=== PATIENT | female | born 1930 | race Caucasian/White ===

== ENCOUNTER 2018-07-13 11:53 | Observation (INO) | payer MEDICARE, BC ==
--- NOTE | 2018-07-13 13:01 | ED ---
General Adult HPI - General Chief complaint: Chest Pain Stated complaint: chest wall pain Time Seen by Provider: 07/13/18 12:17 Source: patient, RN notes reviewed, old records reviewed Mode of arrival: ambulatory Limitations: no limitations - History of Present Illness Initial comments: 87-year-old female presented for evaluation of chest pain. Pain is been present for the past several weeks. Patient was seen by her primary care physician thought to have chest wall strain. She has no known history of coronary artery disease. Today she developed central chest pressure. This was not with specific movement. She denies dyspnea. Denies vomiting. Denies diaphoresis. She is a diabetic. Denies abdominal pain. Denies lower extremity pain or sw elling. - Related Data Home Medications Medication Instructions Recorded Confirmed ALPRAZolam [Xanax] 0.25 mg PO DAILY 07/13/18 07/13/18 Allopurinol [Zyloprim] 300 mg PO DAILY 07/13/18 07/13/18 Aspirin EC [Ecotrin] 325 mg PO DAILY 07/13/18 07/13/18 Insulin Lispro Protamin/Lispro 35 unit SQ AC-SUPPER 07/13/18 07/13/18 [humaLOG Mix 75-25 Kwikpen] Insulin Lispro Protamin/Lispro 48 unit SQ AC-BRKFST 07/13/18 07/13/18 [humaLOG Mix 75-25 Kwikpen] Lisinopril [Zestril] 20 mg PO DAILY 07/13/18 07/13/18 Simvastatin [Zocor] 40 mg PO HS 07/13/18 07/13/18 amLODIPine [Norvasc] 5 mg PO DAILY 07/13/18 07/13/18 metFORMIN HCL [Glucophage Xr] 1,000 mg PO HS 07/13/18 07/13/18 Allergies Allergy/AdvReac Type Severity Reaction Status Date / Time sulfamethoxazole AdvReac Unknown Verified 07/13/18 13:12 [From Bactrim] trimethoprim [From Bactrim] AdvReac Unknown Verified 07/13/18 13:12 Review of Systems ROS Statement: Those systems with pertinent positive or pertinent negative responses have been documented in the HPI. ROS Other: All systems not noted in ROS Statement are negative. Past Medical History Past Medical History: Cancer, Diabetes Mellitus, Hyperlipidemia, Hypertension Additional Past Medical History / Comment(s): Breast cancer, skin cancer History of Any Multi-Drug Resistant Organisms: None Reported Past Surgical History: Appendectomy, Hysterectomy Additional Past Surgical History / Comment(s): bilateral mastectomy Past Psychological History: Anxiety Smoking Status: Never smoker Past Alcohol Use History: None Reported Past Drug Use History: None Reported General Exam Limitations: no limitations General appearance: alert, in no apparent distress Head exam: Present: atraumatic, normocephalic Eye exam: Present: normal appearance, PERRL ENT exam: Present: normal exam Neck exam: Present: normal inspection. Absent: tenderness, meningismus Respiratory exam: Present: normal lung sounds bilaterally. Absent: respiratory distress, wheezes Cardiovascular Exam: Present: regular rate, normal rhythm GI/Abdominal exam: Present: soft, distended Extremities exam: Present: normal inspection, normal capillary refill. Absent: pedal edema Neurological exam: Present: alert, oriented X3, CN II-XII intact. Absent: motor sensory deficit Psychiatric exam: Present: normal affect, normal mood Skin exam: Present: warm, dry, intact. Absent: cyanosis, diaphoretic Course Vital Signs 07/13/18 07/13/18 12:15 14:27 Temperature 98.0 F Pulse Rate 85 73 Respiratory 18 16 Rate Blood Pressure 181/74 122/62 O2 Sat by Pulse 97 97 Oximetry EKG Findings - EKG Comments: EKG Findings:: EKG: Normal sinus rhythm rate 79, AL interval 186, QRS duration 68, QTC [address] segment elevation, she is T-wave inversion in aVL. Medical Decision Making - Medical Decision Making 87-year-old female presenting with intermittent chest pain, central chest, worse this morning with some chest tightness. Patient has no history of coronary artery disease, she is a diabetic. She has an EKG which is normal sinus ST segment elevation, T-wave inversion in aVL. Workup includes chest x-ray which is negative for any acute cardiopulmonary disease, normal CBC, normal CMP initial troponin negative. Patient will be kept in observation for serial cardiac enzymes, telemetry, and cardiology consultation. Case is discussed with the admitting physician Dr. Tompkins - Lab Data Result diagrams: 07/13/18 13:10 07/13/18 13:10 Lab Results 07/13/18 07/13/18 07/13/18 Range/Units 13:10 13:10 13:10 WBC 6.9 (3.8-10.6) k/uL RBC 3.88 (3.80-5.40) m/uL Hgb 11.8 (11.4-16.0) gm/dL Hct 36.7 (34.0-46.0) % MCV 94.5 (80.0-100.0) fL MCH 30.4 (25.0-35.0) pg MCHC 32.2 (31.0-37.0) g/dL RDW 15.1 (11.5-15.5) % Plt Count 155 (150-450) k/uL Neutrophils % 60 % Lymphocytes % 31 % Monocytes % 5 % Eosinophils % 1 % Basophils % 0 % Neutrophils # 4.1 (1.3-7.7) k/uL Lymphocytes # 2.2 (1.0-4.8) k/uL Monocytes # 0.3 (0-1.0) k/uL Eosinophils # 0.1 (0-0.7) k/uL Basophils # 0.0 (0-0.2) k/uL PT 10.3 (9.0-12.0) sec INR 1.0 (<1.2) APTT 22.6 (22.0-30.0) sec Sodium 138 (137-145) mmol/L Potassium 4.9 (3.5-5.1) mmol/L Chloride 105 (98-107) mmol/L Carbon Dioxide 24 (22-30) mmol/L Anion Gap 9 mmol/L BUN 19 H (7-17) mg/dL Creatinine 0.76 (0.52-1.04) mg/dL Est GFR (CKD-EPI)AfAm 83 (>60 ml/min/1.73 sqM) Est GFR (CKD-EPI)NonAf 72 (>60 ml/min/1.73 sqM) Glucose 127 H (74-99) mg/dL Calcium 10.2 (8.4-10.2) mg/dL Magnesium 1.5 L (1.6-2.3) mg/dL Total Bilirubin 0.4 (0.2-1.3) mg/dL AST 27 (14-36) U/L ALT 31 (9-52) U/L Alkaline Phosphatase 57 (38-126) U/L Troponin I (0.000-0.034) ng/mL Total Protein 7.6 (6.3-8.2) g/dL Albumin 4.7 (3.5-5.0) g/dL Lipase 82 (23-300) U/L 07/13/18 Range/Units 13:10 WBC (3.8-10.6) k/uL RBC (3.80-5.40) m/uL Hgb (11.4-16.0) gm/dL Hct (34.0-46.0) % MCV (80.0-100.0) fL MCH (25.0-35.0) pg MCHC (31.0-37.0) g/dL RDW (11.5-15.5) % Plt Count (150-450) k/uL Neutrophils % % Lymphocytes % % Monocytes % % Eosinophils % % Basophils % % Neutrophils # (1.3-7.7) k/uL Lymphocytes # (1.0-4.8) k/uL Monocytes # (0-1.0) k/uL Eosinophils # (0-0.7) k/uL Basophils # (0-0.2) k/uL PT (9.0-12.0) sec INR (<1.2) APTT (22.0-30.0) sec Sodium (137-145) mmol/L Potassium (3.5-5.1) mmol/L Chloride (98-107) mmol/L Carbon Dioxide (22-30) mmol/L Anion Gap mmol/L BUN (7-17) mg/dL Creatinine (0.52-1.04) mg/dL Est GFR (CKD-EPI)AfAm (>60 ml/min/1.73 sqM) Est GFR (CKD-EPI)NonAf (>60 ml/min/1.73 sqM) Glucose (74-99) mg/dL Calcium (8.4-10.2) mg/dL Magnesium (1.6-2.3) mg/dL Total Bilirubin (0.2-1.3) mg/dL AST (14-36) U/L ALT (9-52) U/L Alkaline Phosphatase (38-126) U/L Troponin I <0.012 (0.000-0.034) ng/mL Total Protein (6.3-8.2) g/dL Albumin (3.5-5.0) g/dL Lipase (23-300) U/L Disposition Clinical Impression: Chest pain Disposition: ADMITTED IP TO THIS HOSP Condition: Stable Is patient prescribed a controlled substance at d/c from ED?: No Referrals: Oren Pham DO [Primary Care Provider] - 1-2 days Decision to Admit Reason: Admit from EC Decision Date: 07/13/18 Decision Time: 15:38
--- NOTE | 2018-07-13 13:28 | XR ---
EXAMINATION TYPE: XR chest 2V DATE OF EXAM: 07/13/2018 COMPARISON: NONE HISTORY: Chest pain and shortness of breath TECHNIQUE: Frontal and lateral views of the chest are obtained. FINDINGS: There is chronic parenchymal change without suspicious focal air space opacity, pleural ef fusion, or pneumothorax seen. The cardiac silhouette size is within normal limits with atherosclerot ic change in the aortic knob. Dextroconvex scoliosis centered in the lower thoracic spine is present. IMPRESSION: Chronic parenchymal changes without acute pulmonary process.
[2018-07-13 13:31] LABS: Basophils % (A) 0 %; Eosinophils # (A) 0.1 k/uL (0-0.7); Eosinophils % (A) 1 %; HCT 36.7 % (34.0-46.0); HGB 11.8 gm/dL (11.4-16.0); Lymphocytes # (A) 2.2 k/uL (1.0-4.8); Lymphocytes % (A) 31 %; MCH 30.4 pg (25.0-35.0); MCHC 32.2 g/dL (31.0-37.0); MCV 94.5 fL (80.0-100.0); Monocytes # (A) 0.3 k/uL (0-1.0); Monocytes % (A) 5 %; Neutrophils # (A) 4.1 k/uL (1.3-7.7); Neutrophils % (A) 60 %; Platelet Count 155 k/uL (150-450); RBC 3.88 m/uL (3.80-5.40); RDW 15.1 % (11.5-15.5); WBC 6.9 k/uL (3.8-10.6)
[2018-07-13 13:36] LABS: Albumin 4.7 g/dL (3.5-5.0); Calcium 10.2 mg/dL (8.4-10.2); Magnesium 1.5 mg/dL (1.6-2.3); Potassium 4.9 mmol/L (3.5-5.1); Total Bilirubin 0.4 mg/dL (0.2-1.3); Total Protein 7.6 g/dL (6.3-8.2)
[2018-07-13 13:40] LABS: Partial Thromboplastin Time 22.6 sec (22.0-30.0); Prothrombin Time 10.3 sec (9.0-12.0)
[2018-07-13] MEDS ORDERED: MAGNESIUM SULFATE-D5W PMX 1 GM in DEXTROSE/WATER 1 100ML.BAG IVPB ONE (14:11)
[2018-07-13] MEDS ORDERED: SODIUM CHLORIDE 0.9% 500 ML 500 ML IV ONE (14:11)
[2018-07-13] MEDS ORDERED: ASPIRIN 325 MG TAB PO STA (14:55)
[2018-07-13] MEDS ORDERED: MORPHINE SULFATE 4 MG/ML SYRINGE IV PRN (15:38)
[2018-07-13] MEDS ORDERED: NALOXONE 0.4 MG/ML 1 ML VIAL IV PRN (15:38)
[2018-07-13] MEDS ORDERED: ONDANSETRON 4 MG/2 ML VIAL IVP PRN (15:38)
[2018-07-13] MEDS ORDERED: NITROGLYCERIN SL TABS 0.4 MG TAB SUBLINGUAL PRN (15:39)
--- NOTE | 2018-07-13 16:51 | P.HPIM ---
History of Present Illness H&P Date: 07/13/18 Chief Complaint: Chest pain Patient is a 87-year-old female with history of diabetes type 2 who states over the last few weeks she has had substernal chest pain with some association with movement denies any shortness of breath nausea or vomiting. Patient states she knows the symptoms of a heart attack especially as it relates to women however she became concerned because her chest pain today became more central in origin denies any radiation. Patient was recently seen by a advanced practitioner in her family physician's office for diarrhea and chest pain and at that time her chest pain was attributed to muscle strain related to lifting her dog. Patient states she woke this morning tearful and crying because of a dream that was emotional she then developed the chest pain so she came to the emergency room for evaluation. In the emergency room her initial workup was negative however because of risk factors and need for further stratification patient is placed in observation for further workup and management. Review of Systems Complete review of systems is negative other than stated above Past Medical History Past Medical History: Cancer, Diabetes Mellitus, Hyperlipidemia, Hypertension Additional Past Medical History / Comment(s): Breast cancer, skin cancer History of Any Multi-Drug Resistant Organisms: None Reported Past Surgical History: Appendectomy, Hysterectomy Additional Past Surgical History / Comment(s): bilateral mastectomy Past Psychological History: Anxiety Smoking Status: Never smoker Past Alcohol Use History: None Reported Past Drug Use History: None Reported Medications and Allergies Home Medications Medication Instructions Recorded Confirmed Type ALPRAZolam [Xanax] 0.25 mg PO DAILY 07/13/18 07/13/18 History Allopurinol [Zyloprim] 300 mg PO DAILY 07/13/18 07/13/18 History Aspirin EC [Ecotrin] 325 mg PO DAILY 07/13/18 07/13/18 History Insulin Lispro Protamin/Lispro 35 unit SQ AC-SUPPER 07/13/18 07/13/18 History [humaLOG Mix 75-25 Kwikpen] Insulin Lispro Protamin/Lispro 48 unit SQ AC-BRKFST 07/13/18 07/13/18 History [humaLOG Mix 75-25 Kwikpen] Lisinopril [Zestril] 20 mg PO DAILY 07/13/18 07/13/18 History Simvastatin [Zocor] 40 mg PO HS 07/13/18 07/13/18 History amLODIPine [Norvasc] 5 mg PO DAILY 07/13/18 07/13/18 History metFORMIN HCL [Glucophage Xr] 1,000 mg PO HS 07/13/18 07/13/18 History Allergies Allergy/AdvReac Type Severity Reaction Status Date / Time sulfamethoxazole AdvReac Unknown Verified 07/13/18 13:12 [From Bactrim] trimethoprim [From Bactrim] AdvReac Unknown Verified 07/13/18 13:12 Physical Exam Vitals: Vital Signs Temp Pulse Resp BP Pulse Ox 07/13/18 16:05 76 16 131/44 97 07/13/18 14:27 73 16 122/62 97 07/13/18 12:15 98.0 F 85 18 181/74 97 Intake and Output 07/13/18 07/13/18 07/13/18 06:59 14:59 22:59 Other: Weight 69.853 kg - Constitutional General appearance: no acute distress - EENT Eyes: PERRLA ENT: hearing grossly normal Ears: bilateral: normal - Neck Neck: normal ROM - Respiratory Respiratory: bilateral: CTA - Cardiovascular Rhythm: regular Heart sounds: normal: S1, S2 - Gastrointestinal General gastrointestinal: normal bowel sounds, soft - Integumentary Integumentary: normal turgor - Neurologic Neurologic: CNII-XII intact - Musculoskeletal Musculoskeletal: strength equal bilaterally - Psychiatric Psychiatric: A&O x's 3, appropriate affect, intact judgment & insight Results CBC & Chem 7: 07/13/18 13:10 07/13/18 13:10 Labs: Abnormal Lab Results - Last 24 Hours (Table) 07/13/18 Range/Units 13:10 BUN 19 H (7-17) mg/dL Glucose 127 H (74-99) mg/dL Magnesium 1.5 L (1.6-2.3) mg/dL Thrombosis Risk Factor Assmnt - Choose All That Apply Each Risk Factor Represents 2 Points: Malignancy Each Risk Factor Represents 3 Points: Age 75 years or older Thrombosis Risk Factor Assessment Total Risk Factor Score: 5 Thrombosis Risk Factor Assessment Level: High Risk Assessment and Plan (1) Chest pain Narrative/Plan: Serial cardiac enzymes, morphine, oxygen, nitro, aspirin, cardiology consult further workup depending above telemetry monitoring Current Visit: Yes Status: Acute Code(s): R07.9 - CHEST PAIN, UNSPECIFIED SNOMED Code(s): 21478612 (2) Diabetes type 2, controlled Narrative/Plan: Continue home regimen, sliding scale, ADA diet Current Visit: Yes Status: Acute Code(s): E11.9 - TYPE 2 DIABETES MELLITUS WITHOUT COMPLICATIONS SNOMED Code(s): 04848788 (3) Hypertension Narrative/Plan: Continue outpatient regiment and titrate as needed Current Visit: Yes Status: Acute Code(s): I10 - ESSENTIAL (PRIMARY) HYPERTENSION SNOMED Code(s): 16135098 (4) Breast cancer Narrative/Plan: History, status post mastectomies, chemotherapy, high risk for PE will use Lovenox for DVT prophylaxis Current Visit: Yes Status: Acute Code(s): C50.919 - MALIGNANT NEOPLASM OF UNSP SITE OF UNSPECIFIED FEMALE BREAST SNOMED Code(s): 299038498 Plan: Will place patient in observation for at least the first 24 hours pending further diagnostic workup CODE STATUS was discussed patient is a DO NOT RESUSCITATE, her is her POA
[2018-07-13] MEDS: ALPRAZolam 0.25 MG TAB PO SCH (17:20)
[2018-07-13] MEDS: amLODIPine 5 MG TAB PO SCH (17:20)
[2018-07-13] MEDS: metFORMIN 500 MG TAB PO SCH (17:23)
[2018-07-13] MEDS ORDERED: INSULIN LISPRO PROTAMIN SQ SCH (17:30)
[2018-07-13] MEDS ORDERED: LISPRO SQ SCH (17:30)
[2018-07-13] MEDS ORDERED: INSULN ASP PRT/INSULIN ASPART 100 UNIT/ML 10 ML VIAL SQ SCH (17:30)
[2018-07-13 19:28] VITALS: RESP 18
[2018-07-13 20:03] LABS: Glucose,Whole Blood 105 mg/dL (75-99)
[2018-07-13] MEDS ORDERED: ATORVASTATIN 20 MG TAB PO SCH (21:00)
[2018-07-14] MEDS ORDERED: ACETAMINOPHEN TAB 325 MG TAB PO PRN (05:24)
[2018-07-14 07:13] LABS: Glucose,Whole Blood 104 mg/dL (75-99)
[2018-07-14] MEDS ORDERED: [UNRECOGNIZED DRUG - OTHER] SQ SCH (07:30)
[2018-07-14] MEDS ORDERED: INSULIN LISPRO PROTAMINE SQ SCH (07:30)
[2018-07-14] MEDS ORDERED: INSULN ASP PRT/INSULIN ASPART 100 UNIT/ML 10 ML VIAL SQ SCH (07:30)
[2018-07-14 08:02] VITALS: BP 144/80; PULSE 64; TEMP 97.4
--- NOTE | 2018-07-14 08:56 | P.CRDCN ---
History of Present Illness Consult date: 07/14/18 Chief complaint: Chest pain History of present illness: This is a pleasant 87-year-old female patient with a past medical history significant for diabetes, hypertension, dyslipidemia, as well as history of breast and skin cancer, presented to the emergency room complaining of chest discomfort and she was in her usual state of health until about 4 weeks ago when she started experiencing intermittent episodes of chest discomfort, in the mid of the chest, as a sharp kind of discomfort, without any radiation to the arms, neck, or shoulders, and without any associated symptoms of shortness of breath, sweating, dizziness or lightheaded this, or syncope. The patient stated that the chest discomfort is not exertion related and most the one she is turning around in bed. The chest discomfort lasted only for a few seconds. She stated that she was seen recently by her primary care physician who told her that the chest discomfort is likely related to musculoskeletal etiology. The EKG showed sinus rhythm with nonspecific changes. The cardiac enzymes were checked and came in to be unremarkable. The patient does have multiple risk factors for coronary artery disease and she is educated that she was to go home and she does not want to have any heart catheterization or invasive procedure to be performed. Past Medical History Past Medical History: Cancer, Diabetes Mellitus, Hyperlipidemia, Hypertension Additional Past Medical History / Comment(s): Breast cancer, skin cancer History of Any Multi-Drug Resistant Organisms: None Reported Past Surgical History: Appendectomy, Hysterectomy Additional Past Surgical History / Comment(s): bilateral mastectomy Past Psychological History: Anxiety Smoking Status: Never smoker Past Alcohol Use History: None Reported Past Drug Use History: None Reported Medications and Allergies Home Medications Medication Instructions Recorded Confirmed Type ALPRAZolam [Xanax] 0.25 mg PO DAILY 07/13/18 07/13/18 History Allopurinol [Zyloprim] 300 mg PO DAILY 07/13/18 07/13/18 History Aspirin EC [Ecotrin] 325 mg PO DAILY 07/13/18 07/13/18 History Insulin Lispro Protamin/Lispro 35 unit SQ AC-SUPPER 07/13/18 07/13/18 History [humaLOG Mix 75-25 Kwikpen] Insulin Lispro Protamin/Lispro 48 unit SQ AC-BRKFST 07/13/18 07/13/18 History [humaLOG Mix 75-25 Kwikpen] Lisinopril [Zestril] 20 mg PO DAILY 07/13/18 07/13/18 History Simvastatin [Zocor] 40 mg PO HS 07/13/18 07/13/18 History amLODIPine [Norvasc] 5 mg PO DAILY 07/13/18 07/13/18 History metFORMIN HCL [Glucophage Xr] 1,000 mg PO HS 07/13/18 07/13/18 History Allergies Allergy/AdvReac Type Severity Reaction Status Date / Time sulfamethoxazole AdvReac Unknown Verified 07/13/18 13:12 [From Bactrim] trimethoprim [From Bactrim] AdvReac Unknown Verified 07/13/18 13:12 Physical Exam Vitals: Vital Signs Temp Pulse Pulse Resp BP BP BP 07/14/18 08:00 97.4 F L 64 18 144/80 07/14/18 03:27 18 07/14/18 03:09 97.6 F 67 18 149/67 07/14/18 00:00 18 07/13/18 22:56 97.7 F 65 18 115/52 07/13/18 20:00 18 07/13/18 19:27 97.6 F 64 18 147/65 07/13/18 19:25 07/13/18 16:05 76 16 131/44 07/13/18 16:00 97.9 F 68 16 130/70 07/13/18 14:27 73 16 122/62 07/13/18 12:15 98.0 F 85 18 181/74 Pulse Ox 07/14/18 08:00 95 07/14/18 03:27 07/14/18 03:09 98 07/14/18 00:00 07/13/18 22:56 98 07/13/18 20:00 07/13/18 19:27 97 07/13/18 19:25 95 07/13/18 16:05 97 07/13/18 16:00 98 07/13/18 14:27 97 07/13/18 12:15 97 Intake and Output 07/13/18 07/14/18 07/14/18 22:59 06:59 14:59 Other: Voiding Method Toilet Toilet - Constitutional General appearance: no acute distress - Respiratory Respiratory: bilateral: CTA - Cardiovascular Rhythm: regular Heart sounds: normal: S1, S2 Abnormal Heart Sounds: systolic murmur Results 07/13/18 13:10 07/13/18 13:10 Cardiac Enzymes 07/13/18 07/13/18 07/13/18 Range/Units 13:10 13:10 18:58 AST 27 (14-36) U/L Troponin I <0.012 <0.012 (0.000-0.034) ng/mL 07/14/18 Range/Units 01:24 AST (14-36) U/L Troponin I <0.012 (0.000-0.034) ng/mL Coagulation 07/13/18 Range/Units 13:10 PT 10.3 (9.0-12.0) sec APTT 22.6 (22.0-30.0) sec CBC 07/13/18 Range/Units 13:10 WBC 6.9 (3.8-10.6) k/uL RBC 3.88 (3.80-5.40) m/uL Hgb 11.8 (11.4-16.0) gm/dL Hct 36.7 (34.0-46.0) % Plt Count 155 (150-450) k/uL Comprehensive Metabolic Panel 07/13/18 Range/Units 13:10 Sodium 138 (137-145) mmol/L Potassium 4.9 (3.5-5.1) mmol/L Chloride 105 (98-107) mmol/L Carbon Dioxide 24 (22-30) mmol/L BUN 19 H (7-17) mg/dL Creatinine 0.76 (0.52-1.04) mg/dL Glucose 127 H (74-99) mg/dL Calcium 10.2 (8.4-10.2) mg/dL AST 27 (14-36) U/L ALT 31 (9-52) U/L Alkaline Phosphatase 57 (38-126) U/L Total Protein 7.6 (6.3-8.2) g/dL Albumin 4.7 (3.5-5.0) g/dL Current Medications Generic Name Dose Route Start Last Admin Trade Name Freq PRN Reason Stop Dose Admin Acetaminophen 650 mg 07/14/18 05:24 07/14/18 05:27 Tylenol Tab PO 650 mg Q6HR PRN Administration Fever and/ or Pain Allopurinol 300 mg 07/14/18 09:00 Zyloprim PO DAILY [facility] Alprazolam 0.25 mg 07/13/18 17:15 07/13/18 17:20 Xanax PO Not Given DAILY [facility] Amlodipine Besylate 5 mg 07/13/18 17:15 07/13/18 17:20 Norvasc PO Not Given DAILY [facility] Atorvastatin Calcium 20 mg 07/13/18 21:00 07/13/18 20:28 Lipitor PO 20 mg HS [facility] Administration Insulin Aspart 48 unit 07/14/18 07:30 Novolog Mix 70-30 Vial SQ AC-BRKFST [facility] Insulin Aspart 35 unit 07/13/18 17:30 07/13/18 17:23 Novolog Mix 70-30 Vial SQ 35 unit AC-SUPPER [facility] Administration Lisinopril 20 mg 07/14/18 09:00 Zestril PO DAILY [facility] Metformin HCl 500 mg 07/13/18 17:30 07/13/18 17:23 Glucophage PO 500 mg BID-W/MEALS [facility] Administration Morphine Sulfate 4 mg 07/13/18 15:38 Morphine Sulfate (Inj) IV Q4HR PRN Severe Pain Naloxone HCl 0.2 mg 07/13/18 15:38 Narcan IV Q2M PRN Opioid Reversal Nitroglycerin 0.4 mg 07/13/18 15:39 Nitrostat SUBLINGUAL Q5M PRN Chest Pain Ondansetron HCl 4 mg 07/13/18 15:38 Zofran IVP Q8HR PRN Nausea And Vomiting Intake and Output 07/13/18 07/14/18 07/14/18 22:59 06:59 14:59 Other: Voiding Method Toilet Toilet 07/13/18 13:10 07/13/18 13:10 Assessment and Plan Assessment: Assessment #1 intermittent episodes of atypical chest discomfort #2 multiple risk factors for CAD including diabetes, hypertension, dyslipidemia Plan #1 getting the patient up and around, and if she is asymptomatic she possibly can be discharged home. #2 stress test to be done probably as an outpatient. Since we don't to stress is over the weekend #3 an echocardiogram with Doppler Thank you for allowing us participate in her care
[2018-07-14] MEDS: amLODIPine 5 MG TAB PO SCH (09:00)
[2018-07-14] MEDS: metFORMIN 500 MG TAB PO SCH (09:00)
[2018-07-14] MEDS ORDERED: ALLOPURINOL 300 MG TAB PO SCH (09:00)
[2018-07-14] MEDS ORDERED: LISINOPRIL 20 MG TAB PO SCH (09:00)
[2018-07-14] MEDS: ALPRAZolam 0.25 MG TAB PO SCH (09:25)
--- NOTE | 2018-07-14 18:22 | P.DS ---
Providers Date of admission: 07/13/18 15:38 Expected date of discharge: 07/14/18 Attending physician: Holly Tompkins MD Consults: 07/13/18 15:39 Consult Physician Routine Consulting Provider: Lj Dobson Consult Reason/Comments: CP Do you want consulting provider notified?: Yes Primary care physician: [facility] Course: This is a summary of care as patient left AGAINST MEDICAL ADVICE. I did not physically see the patient. Discharge Diagnosis: Intermittent atypical chest pain Coronary artery disease Diabetes Hypertension Dyslipidemia Hospital Course: Patient is a 7-year-old female history of diabetes mellitus type 2, dyslipidemia, hypertension, and prior breast cancer who presented to the ER with complaints of chest pain with movement. She recently been seen at her PCPs office and had been diagnosed with musculoskeletal chest pain secondary to lifting her dog. She woke up from an emotional drain and then developed chest pain and came to the ER. In the ER she underwent an extensive evaluation. On initial exam her blood pressure was 181/74 however this improved to 122/62. Initial laboratory analysis was negative and EKG was nonischemic. She was admitted for chest pain observation. Troponins remained negative. Blood pressure remained improved. She was seen by cardiology in the morning of 07/14. She was able to get up and ambulating the hallway without difficulty. They recommended outpatient stress test. Nurses attempted to contact me as patient was requesting discharge. Per nursing the patient gave her approximately 7 minutes to contact me. When I did not return the call within 7 minutes patient decided to leave AGAINST MEDICAL ADVICE as her ride was here. A total of 25 minutes of time were spent preparing this complex discharge summary . Pertinent Studies: Chest [id number]-[id number] changes without acute pulmonary process Patient Condition at Discharge: Stable Plan - Discharge Summary Discharge Rx Participant: No New Discharge Prescriptions: No Action Simvastatin [Zocor] 40 mg PO HS Aspirin EC [Ecotrin] 325 mg PO DAILY ALPRAZolam [Xanax] 0.25 mg PO DAILY metFORMIN HCL [Glucophage Xr] 1,000 mg PO HS amLODIPine [Norvasc] 5 mg PO DAILY Lisinopril [Zestril] 20 mg PO DAILY Allopurinol [Zyloprim] 300 mg PO DAILY Insulin Lispro Protamin/Lispro [humaLOG Mix 75-25 Kwikpen] 48 unit SQ AC- BRKFST Insulin Lispro Protamin/Lispro [humaLOG Mix 75-25 Kwikpen] 35 unit SQ AC- SUPPER Discharge Medication List ALPRAZolam [Xanax] 0.25 mg PO DAILY 07/13/18 [History] Allopurinol [Zyloprim] 300 mg PO DAILY 07/13/18 [History] Aspirin EC [Ecotrin] 325 mg PO DAILY 07/13/18 [History] Insulin Lispro Protamin/Lispro [humaLOG Mix 75-25 Kwikpen] 35 unit SQ AC-SUPPER 07/13/18 [History] Insulin Lispro Protamin/Lispro [humaLOG Mix 75-25 Kwikpen] 48 unit SQ AC-BRKFST 07/13/18 [History] Lisinopril [Zestril] 20 mg PO DAILY 07/13/18 [History] Simvastatin [Zocor] 40 mg PO HS 07/13/18 [History] amLODIPine [Norvasc] 5 mg PO DAILY 07/13/18 [History] metFORMIN HCL [Glucophage Xr] 1,000 mg PO HS 07/13/18 [History] Follow up Appointment(s)/Referral(s): Lj Dobson MD [STAFF PHYSICIAN] - 4 Weeks Oren Pham DO [Primary Care Provider] - 1-2 days Discharge Disposition: Left Against Medical Advice
== END 2018-07-14 10:08 | disposition left against medical advice (07) ==
LOC: EC 11:53 → 1SOBS 15:38
PROVIDERS: ADMIT Internal Medicine; ATTEND Internal Medicine
DX: R07.89 Other chest pain (principal); R07.2 Precordial pain; E11.9 Type 2 diabetes mellitus without complications; E78.5 Hyperlipidemia, unspecified; I10 Essential (primary) hypertension; F41.9 Anxiety disorder, unspecified; I25.10 Atherosclerotic heart disease of native coronary artery without angina pectoris; Z85.828 Personal history of other malignant neoplasm of skin; Z85.3 Personal history of malignant neoplasm of breast; Z90.13 Acquired absence of bilateral breasts and nipples; Z79.899 Other long term (current) drug therapy; Z79.82 Long term (current) use of aspirin; Z79.4 Long term (current) use of insulin; Z88.2 Allergy status to sulfonamides; Z92.21 Personal history of antineoplastic chemotherapy; Z66 Do not resuscitate; Z53.21 Procedure and treatment not carried out due to patient leaving prior to being seen by health care provider
CPT/HCPCS: 96365; 99285; 36415; 94760; 93005; 80053; 83690; 83735; 84484 ×2; 85025; 85610; 85730; 71046; G0378 ×2; J3475

== ENCOUNTER 2019-03-19 11:12 | Emergency (ER) | payer MEDICARE, BC ==
[2019-03-19 11:21] VITALS: RESP 18
[2019-03-19] MEDS ORDERED: KETOROLAC 60 MG/2 ML VIAL IVP STA (12:10)
--- NOTE | 2019-03-19 12:21 | ED ---
General Adult HPI - General Chief complaint: Extremity Problem,Nontraumatic Stated complaint: R arm pain, back pain Time Seen by Provider: 03/19/19 11:15 Source: patient, RN notes reviewed, old records reviewed Mode of arrival: EMS Limitations: no limitations - History of Present Illness Initial comments: This is an 88-year-old female presents emergency department complaining of a Monday multiple areas of pain starting the week before crypts. Patient states she started with some pain in the right arm mostly under the arm and the arm pit region. Patient states it hurts with movement she thinks that was occurring because she's been lifting her dog a lot because the dog cannot walk. Patient states then the pain seemed to move to her left lateral rib cage again the pain was there with movement and she then states it's now across her lower back. Patient denies any difficulty breathing or shortness of breath per patient denies any anterior chest pain. Patient denies any fever chills or cough. Patient denies any dysuria hematuria urinary frequency. Patient denies any injury or trauma. Patient states in the morning she can barely get out of bed it hurt so much. Patient states she takes Tylenol doesn't seem to help but she takes Motrin it seems to take the pain away. Patient has seen her primary medical care doctor last week and suggested she take Motrin occasionally but she only took it once. - Related Data Home Medications Medication Instructions Recorded Confirmed Allopurinol [Zyloprim] 300 mg PO DAILY@1500 07/13/18 03/19/19 Aspirin EC [Ecotrin] 325 mg PO DAILY 07/13/18 03/19/19 Insulin Lispro Protamin/Lispro 35 unit SQ AC-SUPPER 07/13/18 03/19/19 [humaLOG Mix 75-25 Kwikpen] Insulin Lispro Protamin/Lispro 48 unit SQ AC-BRKFST 07/13/18 03/19/19 [humaLOG Mix 75-25 Kwikpen] Lisinopril [Zestril] 20 mg PO DAILY 07/13/18 03/19/19 Simvastatin [Zocor] 20 mg PO HS 07/13/18 03/19/19 amLODIPine [Norvasc] 5 mg PO DAILY 07/13/18 03/19/19 Acetaminophen [Tylenol 8 Hour] 650 mg PO Q8H 03/19/19 03/19/19 DULoxetine HCL [Cymbalta] 30 mg PO DAILY 03/19/19 03/19/19 Magnesium Hydroxide [Milk of 2,400 mg PO DAILY PRN 03/19/19 03/19/19 Magnesia] [place]-3 Fatty Acids [[place]-3] 1,000 mg PO DAILY 03/19/19 03/19/19 Omeprazole 20 mg PO DAILY 03/19/19 03/19/19 Vitamin B Complex 1 cap PO DAILY 03/19/19 03/19/19 Previous Rx's Medication Instructions Recorded Ibuprofen [Motrin] 400 mg PO Q8HR PRN 7 Days #21 tab 03/19/19 Allergies Allergy/AdvReac Type Severity Reaction Status Date / Time sulfamethoxazole AdvReac Unknown Verified 03/19/19 12:38 [From Bactrim] trimethoprim [From Bactrim] AdvReac Unknown Verified 03/19/19 12:38 Review of Systems ROS Statement: Those systems with pertinent positive or pertinent negative responses have been documented in the HPI. ROS Other: All systems not noted in ROS Statement are negative. Past Medical History Past Medical History: Cancer, Diabetes Mellitus, Hyperlipidemia, Hypertension Additional Past Medical History / Comment(s): Breast cancer, skin cancer History of Any Multi-Drug Resistant Organisms: None Reported Past Surgical History: Appendectomy, Hysterectomy Additional Past Surgical History / Comment(s): bilateral mastectomy Past Psychological History: Anxiety Smoking Status: Never smoker Past Alcohol Use History: None Reported Past Drug Use History: None Reported General Exam - General Exam Comments Initial Comments: GENERAL: Patient is well-developed and well-nourished. Patient is nontoxic and well- hydrated and is in mild distress. ENT: Neck is soft and supple. No significant lymphadenopathy is noted. Oropharynx is clear. Moist mucous membranes. Neck has full range of motion without eliciting any pain. EYES: The sclera were anicteric and conjunctiva were pink and moist. Extraocular movements were intact and pupils were equal round and reactive to light. Eyelids were unremarkable. PULMONARY: Unlabored respirations. Good breath sounds bilaterally. No audible rales rhonchi or wheezing was noted. CARDIOVASCULAR: There is a regular rate and rhythm without any murmurs gallops or rubs. ABDOMEN: Soft and nontender with normal bowel sounds. SKIN: Skin is clear with no lesions or rashes and otherwise unremarkable. NEUROLOGIC: Patient is alert and oriented x3. Cranial nerves II through XII are grossly intact. Motor and sensory are also intact. Normal speech, volume and content. Symmetrical smile. MUSCULOSKELETAL: Normal extremities with adequate strength and full range of motion. Passive range of motion of the left arm did not cause any pain however active range of motion though full cause the patient pain in the armpit region. Patient had no palpable pain in the left lateral thorax but with movement it hurt her. Patient had no pain in the lower back but again with twisting it caused her pain. LYMPHATICS: No significant lymphadenopathy is noted PSYCHIATRIC: Normal psychiatric evaluation. Limitations: no limitations Course Vital Signs 03/19/19 11:15 Temperature 98.1 F Pulse Rate 82 Respiratory 18 Rate Blood Pressure 152/64 O2 Sat by Pulse 96 Oximetry Medical Decision Making - Medical Decision Making EKG showed normal sinus rhythm at 70 bpm SC interval 170 QRS is 70 QT interval is 368 QTC is 419. EKG shows no ST elevation or depression. - Lab Data Result diagrams: 03/19/19 12:30 03/19/19 12:30 Lab Results 03/19/19 03/19/19 03/19/19 Range/Units 12:30 12:30 12:30 WBC 8.3 (3.8-10.6) k/uL RBC 3.98 (3.80-5.40) m/uL Hgb 12.1 (11.4-16.0) gm/dL Hct 37.1 (34.0-46.0) % MCV 93.2 (80.0-100.0) fL MCH 30.5 (25.0-35.0) pg MCHC 32.7 (31.0-37.0) g/dL RDW 14.2 (11.5-15.5) % Plt Count 208 (150-450) k/uL Neutrophils % 69 % Lymphocytes % 24 % Monocytes % 5 % Eosinophils % 1 % Basophils % 0 % Neutrophils # 5.7 (1.3-7.7) k/uL Lymphocytes # 2.0 (1.0-4.8) k/uL Monocytes # 0.4 (0-1.0) k/uL Eosinophils # 0.1 (0-0.7) k/uL Basophils # 0.0 (0-0.2) k/uL Sodium 135 L (137-145) mmol/L Potassium 4.8 (3.5-5.1) mmol/L Chloride 100 (98-107) mmol/L Carbon Dioxide 25 (22-30) mmol/L Anion Gap 10 mmol/L BUN 18 H (7-17) mg/dL Creatinine 0.89 (0.52-1.04) mg/dL Est GFR (CKD-EPI)AfAm 67 (>60 ml/min/1.73 sqM) Est GFR (CKD-EPI)NonAf 59 (>60 ml/min/1.73 sqM) Glucose 151 H (74-99) mg/dL Calcium 9.7 (8.4-10.2) mg/dL Magnesium 1.8 (1.6-2.3) mg/dL Total Bilirubin 0.5 (0.2-1.3) mg/dL AST 33 (14-36) U/L ALT 13 (4-34) U/L Alkaline Phosphatase 100 (38-126) U/L Troponin I <0.012 (0.000-0.034) ng/mL C-Reactive Protein 47.9 H (<10.0) mg/L Total Protein 7.2 (6.3-8.2) g/dL Albumin 4.2 (3.5-5.0) g/dL Urine Color Urine Appearance (Clear) Urine pH (5.0-8.0) Ur Specific [place] (1.001-1.035) Urine Protein (Negative) Urine Glucose (UA) (Negative) Urine Ketones (Negative) Urine Blood (Negative) Urine Nitrite (Negative) Urine Bilirubin (Negative) Urine Urobilinogen (<2.0) mg/dL Ur Leukocyte Esterase (Negative) Urine RBC (0-5) /hpf Urine WBC (0-5) /hpf Ur Squamous Epith Cells (0-4) /hpf Hyaline Casts (0-2) /lpf Urine Mucus (None) /hpf 03/19/19 Range/Units 13:30 WBC (3.8-10.6) k/uL RBC (3.80-5.40) m/uL Hgb (11.4-16.0) gm/dL Hct (34.0-46.0) % MCV (80.0-100.0) fL MCH (25.0-35.0) pg MCHC (31.0-37.0) g/dL RDW (11.5-15.5) % Plt Count (150-450) k/uL Neutrophils % % Lymphocytes % % Monocytes % % Eosinophils % % Basophils % % Neutrophils # (1.3-7.7) k/uL Lymphocytes # (1.0-4.8) k/uL Monocytes # (0-1.0) k/uL Eosinophils # (0-0.7) k/uL Basophils # (0-0.2) k/uL Sodium (137-145) mmol/L Potassium (3.5-5.1) mmol/L Chloride (98-107) mmol/L Carbon Dioxide (22-30) mmol/L Anion Gap mmol/L BUN (7-17) mg/dL Creatinine (0.52-1.04) mg/dL Est GFR (CKD-EPI)AfAm (>60 ml/min/1.73 sqM) Est GFR (CKD-EPI)NonAf (>60 ml/min/1.73 sqM) Glucose (74-99) mg/dL Calcium (8.4-10.2) mg/dL Magnesium (1.6-2.3) mg/dL Total Bilirubin (0.2-1.3) mg/dL AST (14-36) U/L ALT (4-34) U/L Alkaline Phosphatase (38-126) U/L Troponin I (0.000-0.034) ng/mL C-Reactive Protein (<10.0) mg/L Total Protein (6.3-8.2) g/dL Albumin (3.5-5.0) g/dL Urine Color Dark Yellow Urine Appearance Clear (Clear) Urine pH 5.5 (5.0-8.0) Ur Specific [place] 1.047 H (1.001-1.035) Urine Protein 1+ H (Negative) Urine Glucose (UA) Negative (Negative) Urine Ketones Trace H (Negative) Urine Blood Negative (Negative) Urine Nitrite Negative (Negative) Urine Bilirubin Negative (Negative) Urine Urobilinogen 4.0 (<2.0) mg/dL Ur Leukocyte Esterase Trace H (Negative) Urine RBC 1 (0-5) /hpf Urine WBC 2 (0-5) /hpf Ur Squamous Epith Cells 3 (0-4) /hpf Hyaline Casts 1 (0-2) /lpf Urine Mucus Occasional H (None) /hpf Disposition Clinical Impression: Myalgia Disposition: HOME SELF-CARE Condition: Good Instructions (If sedation given, give patient instructions): Musculoskeletal Pain (ED) Prescriptions: Ibuprofen [Motrin] 400 mg PO Q8HR PRN 7 Days #21 tab PRN Reason: Muscle Pain Is patient prescribed a controlled substance at d/c from ED?: No Referrals: Zachariah Quintanilla MD [Primary Care Provider] - 1-2 days Time of Disposition: 14:39
[2019-03-19 12:44] LABS: Basophils % (A) 0 %; Eosinophils # (A) 0.1 k/uL (0-0.7); Eosinophils % (A) 1 %; HCT 37.1 % (34.0-46.0); HGB 12.1 gm/dL (11.4-16.0); Lymphocytes % (A) 24 %; MCH 30.5 pg (25.0-35.0); MCHC 32.7 g/dL (31.0-37.0); MCV 93.2 fL (80.0-100.0); Mean Platelet Volume 7.2; Monocytes # (A) 0.4 k/uL (0-1.0); Monocytes % (A) 5 %; Neutrophils # (A) 5.7 k/uL (1.3-7.7); Neutrophils % (A) 69 %; Platelet Count 208 k/uL (150-450); RBC 3.98 m/uL (3.80-5.40); RDW 14.2 % (11.5-15.5); WBC 8.3 k/uL (3.8-10.6)
--- NOTE | 2019-03-19 12:58 | XR ---
EXAMINATION TYPE: XR chest 2V DATE OF EXAM: 03/19/2019 COMPARISON: 07/13/2018 HISTORY: Difficulty breathing TECHNIQUE: Frontal and lateral views of the chest are obtained. FINDINGS: There are low lung volumes exaggerating the pulmonary vasculature. There is no focal air s pace opacity, pleural effusion, or pneumothorax seen. The cardiac silhouette size is within normal l imits. The osseous structures are intact. Mild degenerative change of the spine. IMPRESSION: Hypoventilatory lungs. No acute cardiopulmonary process.
[2019-03-19 13:02] LABS: Albumin 4.2 g/dL (3.5-5.0); C Reactive Protein 47.9 mg/L (<10.0); Calcium 9.7 mg/dL (8.4-10.2); Magnesium 1.8 mg/dL (1.6-2.3); Potassium 4.8 mmol/L (3.5-5.1); Total Bilirubin 0.5 mg/dL (0.2-1.3); Total Protein 7.2 g/dL (6.3-8.2)
[2019-03-19 14:05] LABS: Appearance,Urine Clear (Clear); Bilirubin,Urine Negative (Negative); Blood,Urine Negative (Negative); Color,Urine Dark Yellow; Glucose,Urine (UA) Negative (Negative); Hyaline Casts,Urine 1 /lpf (0-2); Ketones,Urine Trace (Negative); Leukocyte Esterase,Urine Trace (Negative); Mucus,Urine Occasional /hpf; Nitrite,Urine Negative (Negative); PH, Urine 5.5 (5.0-8.0); Protein,Urine 1+ (Negative); RBC,Urine 1 /hpf (0-5); Squamous Epithelial Cell,Urine 3 /hpf (0-4); WBC,Urine 2 /hpf (0-5)
[2019-03-19 14:16] LABS: Specific Gravity,Urine 1.047 (1.001-1.035)
[2019-03-19 15:19] VITALS: BP 147/75; PULSE 75; TEMP 98
== END 2019-03-19 15:18 | disposition home or self-care (01) ==
LOC: EC 11:12
DX: M79.18 Myalgia, other site (principal); E11.9 Type 2 diabetes mellitus without complications; E78.5 Hyperlipidemia, unspecified; I10 Essential (primary) hypertension; F41.9 Anxiety disorder, unspecified; Z88.2 Allergy status to sulfonamides; Z79.4 Long term (current) use of insulin; Z79.82 Long term (current) use of aspirin; Z79.899 Other long term (current) drug therapy; Z85.3 Personal history of malignant neoplasm of breast; Z85.828 Personal history of other malignant neoplasm of skin; Z90.13 Acquired absence of bilateral breasts and nipples; X50.0XXA Overexertion from strenuous movement or load, initial encounter
CPT/HCPCS: 36415; 80053; 83735; 84484; 85025; 86140; 81001; 71046; 99284; 96374; J1885

== ENCOUNTER 2019-08-12 16:06 | Inpatient (IN) | payer MEDICARE, BC ==
[2019-08-12] MEDS ORDERED: ASPIRIN 81 MG PO STA (17:27)
--- NOTE | 2019-08-12 18:09 | XR ---
EXAMINATION TYPE: XR chest 2V DATE OF EXAM: 08/12/2019 COMPARISON: 03/19/2019 HISTORY: Back pain. Chest pain TECHNIQUE: FINDINGS: There are multiple bilateral healing rib fractures. There is pleural thickening on the left and right chest wall. There is deformity of the right scapula consistent with healing fracture. Thor acic aorta is atheromatous. Heart size is normal. There is some linear density left lung base. No hea rt failure. There is osteopenia. IMPRESSION: Bilateral multiple healing rib fractures with pleural thickening which is a change compar ed to old exam. Healing right scapular fracture. Minimal atelectasis left lower lobe. Normal heart.
--- NOTE | 2019-08-12 18:14 | XR ---
EXAMINATION TYPE: XR thoracic spine complete DATE OF EXAM: 08/12/2019 COMPARISON: Chest x-ray 03/19/2019 HISTORY: Back pain TECHNIQUE: 3 views FINDINGS: There is a mild thoracic dextroscoliosis and lumbar levoscoliosis. There is osteopenia. The re is anterior wedging of T11 and T9 T7 and T6 vertebra. There is loss of height up to 40%. There is osteopenia. There is no paraspinal mass. I see no focal bone destruction. IMPRESSION: Numerous osteoporotic type compression fractures. The fractures are essentially new robin red to old exam.
[2019-08-12 18:45] LABS: Basophils % (A) 0 %; Eosinophils # (A) 0.1 k/uL (0-0.7); Eosinophils % (A) 1 %; HCT 24.4 % (34.0-46.0); HGB 7.8 gm/dL (11.4-16.0); Lymphocytes % (A) 11 %; MCH 29.2 pg (25.0-35.0); MCHC 31.9 g/dL (31.0-37.0); MCV 91.4 fL (80.0-100.0); Monocytes # (A) 0.8 k/uL (0-1.0); Monocytes % (A) 4 %; Neutrophils # (A) 15.4 k/uL (1.3-7.7); Neutrophils % (A) 83 %; Platelet Count 338 k/uL (150-450); RBC 2.67 m/uL (3.80-5.40); RDW 15.4 % (11.5-15.5); WBC 18.5 k/uL (3.8-10.6)
[2019-08-12 18:56] LABS: Albumin 3.8 g/dL (3.5-5.0); Calcium 11.6 mg/dL (8.4-10.2); Magnesium 1.6 mg/dL (1.6-2.3); Phosphorus 4.3 mg/dL (2.5-4.5); Potassium 4.1 mmol/L (3.5-5.1); Total Bilirubin 0.8 mg/dL (0.2-1.3); Total Protein 6.7 g/dL (6.3-8.2)
[2019-08-12 19:11] LABS: Prothrombin Time 10.4 sec (9.0-12.0)
[2019-08-12 19:16] LABS: Partial Thromboplastin Time 18.3 sec (22.0-30.0)
[2019-08-12 19:18] LABS: D-Dimer 7.56 mg/L FEU (<0.60)
[2019-08-12] MEDS ORDERED: MORPHINE SULFATE 4 MG/ML SYRINGE IV STA (19:31)
[2019-08-12] MEDS ORDERED: SODIUM CHLORIDE 0.9% 1,000 ML IV ONE (19:31)
--- NOTE | 2019-08-12 20:23 | CT ---
EXAMINATION TYPE: CT brain erinine wo con DATE OF EXAM: 08/12/2019 COMPARISON: None HISTORY: Fall [address] DLP: 1292 mGycm Automated exposure control for dose reduction was used. There is mild cerebral atrophy. There is no mass effect nor midline shift. There is no sign of intrac ranial hemorrhage. The calvarium is intact. Cervical vertebra have normal alignment. There is mild narrowing of disc spaces from C4 to C7. Machine Stacker ior elements are intact. There is minimal facet arthropathy. There is no evidence of cervical spine f racture. The skull base is intact. There is fairly normal aeration of the mastoid sinuses. IMPRESSION: Mild atrophy. No acute intracranial abnormality. Minor degenerative disc changes in the cervical spin e. No fracture.
[2019-08-12 20:32] LABS: Glucose,Whole Blood 113 mg/dL (75-99)
--- NOTE | 2019-08-12 20:49 | CT ---
EXAMINATION TYPE: CT abdomen pelvis w con DATE OF EXAM: 08/12/2019 COMPARISON: HISTORY: Fall 3 weeks ago. Chest pain, elevated d-dimer. CT DLP: 895.3 mGycm Automated exposure control for dose reduction was used. CONTRAST: Performed with IV Contrast, patient injected with mL of Isovue 370. Images obtained from the diaphragm to the floor the pelvis with IV contrast. There is some patchy atelectasis at the lung bases. There is no pericardial effusion. There is mild p leural thickening at the posterior lung bases. There is small hiatal hernia. Liver shows no focal def ect. Gallbladder appears normal. There is no evidence of pancreatic mass. Spleen appears normal. Ther e is no adrenal mass. Kidneys have normal size. There is no hydronephrosis. Ureters are not dilated. There is no retroperitoneal adenopathy. Bladder distends smoothly. There is no evidence of a pelvic m ass. There is no free fluid in the pelvis. There is hysterectomy. There is no inguinal hernia. There is 3.3 cm sharply marginated rounded cyst in the pelvis on the left side that is probably ovarian cys t There is no mesenteric edema. There is no ascites or free air. There is no sign of a bowel obstructio n. Appendix not seen. No sign of thickened appendix. Multilevel spondylotic changes are present in the lumbar spine with disc space narrowing and vacuum d isc. There is T11 anterior wedging with 30% loss of height. T9 shows 15% compression. T7 shows 25% co mpression. There is some lucency in the anterior aspect of the T7 vertebral body. There is some lucen cy inferior aspect of the T11 vertebral body. The bony pelvis appears intact. IMPRESSION: Atherosclerotic vascular disease. No acute abnormality in the abdomen pelvis. Interstitial infiltrates and atelectasis and pleural thickening at the lung bases. Compression fractures of the spine as above. Metastatic disease not entirely excluded. Left-sided simple pelvic cyst.
--- NOTE | 2019-08-12 20:56 | CT ---
EXAMINATION TYPE: CT chest angio for PE DATE OF EXAM: 08/12/2019 COMPARISON: None HISTORY: Fall 3 weeks ago. Chest pain, elevated d-dimer. CT DLP: 332.8 mGycm Automated exposure control for dose reduction was used. CONTRAST: Performed with IV Contrast, patient injected with 80 mL of Isovue 370. There are 3-D post processed images. There is pleural thickening at the posterior lung bases. There is bilateral interstitial infiltrates and atelectasis in both lungs with groundglass patchy density. There is no mediastinal adenopathy. There are no hilar masses. There is no thoracic aortic aneurysm o r dissection. Heart is top normal in size. There is no pericardial effusion. There is normal contrast opacification of the pulmonary arteries. There are no filling defects. There is anterior wedging of T11 and T9 and T7 vertebra up to 30%. There are rounded lucencies in the vertebral bodies. Is not clear if these are related to metastatic disease. There is old healed later al right rib fracture. There are multiple old left-sided rib fractures. IMPRESSION: Multiple thoracic mild compression fractures. Metastatic disease not excluded. No evidence of pulmonary embolism. Patchy pulmonary interstitial infiltrates and atelectasis and pleural thickening in both lungs.
[2019-08-12 21:50] LABS: Appearance,Urine Cloudy (Clear); Bilirubin,Urine Negative (Negative); Blood,Urine Negative (Negative); Budding Yeast,Urine Few /hpf; Color,Urine Yellow; Glucose,Urine (UA) Negative (Negative); Hyaline Casts,Urine 18 /lpf (0-2); Ketones,Urine Negative (Negative); Leukocyte Esterase,Urine Negative (Negative); Mucus,Urine Occasional /hpf; Nitrite,Urine Negative (Negative); PH, Urine 5.5 (5.0-8.0); Protein,Urine Negative (Negative); RBC,Urine 7 /hpf (0-5); Squamous Epithelial Cell,Urine 1 /hpf (0-4); Urobilinogen,Urine <2.0 mg/dL (<2.0); WBC,Urine 2 /hpf (0-5)
[2019-08-12 21:54] LABS: Specific Gravity,Urine 1.048 (1.001-1.035)
--- NOTE | 2019-08-12 22:51 | ED ---
General Adult HPI <Varun Porras - Last Filed: 08/12/19 23:56> - General Source: patient, RN notes reviewed, old records reviewed Mode of arrival: EMS Limitations: no limitations <Jignesh Donnelly - Last Filed: 08/13/19 00:14> - General Chief complaint: Recheck/Abnormal Lab/Rx Stated complaint: Arthritic Pain Time Seen by Provider: 08/12/19 16:10 - History of Present Illness Initial comments: 89-year-old female patient presents ED for evaluation. Patient reports that she has arthritis and has pain all over. Reports has been ongoing for months. Reports that she had many x-rays taken about a week ago and has not gotten the result is very anxious about that. Denies any other complaints. Systemic: Pt denies fatigue, fever/chills, rash. Pt denies weakness, night sweats, weight loss. Neuro: Pt denies headache, visual disturbances, syncope or pre-syncope. HEENT: Pt denies ocular discharge or irritation, otalgia, rhinorrhea, pharyngitis or notable lymphadenopathy. Cardiopulmonary: Pt denies chest pain, SOB, heart palpitations, dyspnea on exertion. Abdominal/GI: Pt denies abdominal pain, n/v/d. : Pt denies dysuria, burning w/ urination, frequency/urgency. Denies new onset urinary or bowel incontinence. Neuro: Pt denies new onset weakness, paresthesias. (Jignesh Donnelly) - Related Data Home Medications Medication Instructions Recorded Confirmed Allopurinol [Zyloprim] 300 mg PO HS 07/13/18 08/12/19 Insulin Lispro Protamin/Lispro 30 unit SQ AC-SUPPER 07/13/18 08/12/19 [humaLOG Mix 75-25 Kwikpen] Insulin Lispro Protamin/Lispro 75 unit SQ AC-BRKFST 07/13/18 08/12/19 [humaLOG Mix 75-25 Kwikpen] Lisinopril [Zestril] 20 mg PO DAILY 07/13/18 08/12/19 Simvastatin [Zocor] 20 mg PO HS 07/13/18 08/12/19 amLODIPine [Norvasc] 5 mg PO DAILY 07/13/18 08/12/19 Vitamin B Complex 1 cap PO DAILY 03/19/19 08/12/19 Aspirin EC [Ecotrin] 325 mg PO DAILY 08/12/19 08/12/19 Escitalopram Oxalate [Lexapro] 10 mg PO DAILY 08/12/19 08/12/19 traMADol HCL [Ultram] 50 mg PO TID 08/12/19 08/12/19 Previous Rx's Medication Instructions Recorded Ibuprofen [Motrin] 400 mg PO Q8HR PRN 7 Days #21 tab 03/19/19 Allergies Allergy/AdvReac Type Severity Reaction Status Date / Time sulfamethoxazole AdvReac Unknown Verified 03/19/19 12:38 [From Bactrim] trimethoprim [From Bactrim] AdvReac Unknown Verified 03/19/19 12:38 Review of Systems ROS Other: All systems not noted in ROS Statement are negative. <Varun Porras - Last Filed: 08/12/19 23:56> ROS Other: All systems not noted in ROS Statement are negative. <Jignesh Donnelly - Last Filed: 08/13/19 00:14> ROS Statement: Those systems with pertinent positive or pertinent negative responses have been documented in the HPI. Past Medical History Past Medical History: Cancer, Diabetes Mellitus, Hyperlipidemia, Hypertension Additional Past Medical History / Comment(s): Breast cancer, skin cancer, arthritis. History of Any Multi-Drug Resistant Organisms: None Reported Past Surgical History: Appendectomy, Hysterectomy Additional Past Surgical History / Comment(s): bilateral mastectomy Past Psychological History: Anxiety Smoking Status: Never smoker Past Alcohol Use History: None Reported Past Drug Use History: None Reported <Jignesh Donnelly - Last Filed: 08/13/19 00:14> General Exam Limitations: no limitations <Jignesh Donnelly - Last Filed: 08/13/19 00:14> - General Exam Comments Initial Comments: Constitutional: NAD, AOX3, Pt has pleasant affect. HEENT: NC/AT, trachea midline, neck supple, no lymphadenopathy. Posterior pharynx non erythematous, without exudates. External ears appear normal, without discharge. Mucous membranes moist. Eyes PERRLA, EOM intact. There is no scleral icterus. No pallor noted. Cardiopulmonary: RRR, no murmurs, rubs or gallops, no JVD noted. Lungs CTAB in anterior and posterior bernard. No peripheral edema. Abdominal exam: Abdomen soft and non-distended. Abdomen non-tender to palpation in all 4 quadrants. Bowel sounds active in LLQ. No hepatosplenomegaly. No ecchymosis Neuro: CN II-XII grossly intact. No nuchal rigidity. No raccon eyes, no stokes sign, no hemotympanum. No cervical spinal tenderness. MSK: Mild amount of midthoracic tenderness. No ecchymoses. 5/5 strength lower extremities. Sensation intact. (Jignesh Donnelly) Course <Varun Porras - Last Filed: 08/12/19 23:56> Vital Signs 08/12/19 08/12/19 08/12/19 16:10 19:00 22:38 Temperature 97.8 F Pulse Rate 94 76 Respiratory 18 18 18 Rate Blood Pressure 138/97 138/96 O2 Sat by Pulse 97 97 Oximetry 08/12/19 22:50 Temperature 98.2 F Pulse Rate 68 Respiratory 18 Rate Blood Pressure 168/55 O2 Sat by Pulse 96 Oximetry - Reevaluation(s) Reevaluation #1: 08/12/19 23:56 I was asked to enter replacement ordered for the prior physician. No involvement in patient care (Varun Porras) Medical Decision Making - Lab Data Result diagrams: 08/12/19 18:30 08/12/19 18:30 <Varun Porras - Last Filed: 08/12/19 23:56> - Lab Data Result diagrams: 08/12/19 18:30 08/12/19 18:30 - EKG Data -: EKG Interpreted by Me <Jignesh Donnelly - Last Filed: 08/13/19 00:14> - Medical Decision Making 89-year-old female patient presents ED for evaluation. Patient reports that she has arthritis and has pain all over. Reports has been ongoing for months. Reports that she had many x-rays taken about a week ago and has not gotten the result is very anxious about that. Denies any other complaints. Patient vital signs stable. Initially after patient complain attempted to get imaging reports from that she is undertaken. This unsuccessful. I then when reevaluated patient. Patient reports that she has now been having some chest pains over the last 3 days. A chest pain workup was initiated. The chest x-ray displayed rib fractures. Patient reports that she had a fall 3 weeks ago. Further workup was initiated including CAT scan CT brain and C-spine, CT chest angiogram, CT abdomen and pelvis. CT brain C-spine displayed mild atrophy no acute intracranial abnormality. Minor degenerative changes and cervical spine no fracture. CT chest anterior displayed multiple thoracic mild compression fractures metastatic disease nonoccluded. No evidence of PE. Pulmonary patient infiltrates and atelectasis and pleural thickening in both lungs. chest abdomen pelvis display atherosclerotic vascular disease, no acute abnormality abdomen pelvis. Patient denies any cough or congestion. Investigations reveal leukocytosis of 18.5. D-dimer 7.56. Creatinine 1.09. Hemoglobin of 7.8. EKG is nonischemic. Patient is not having pain in her chest this time. Patient admitted for further evaluation. Case discussed with Dr. Salvador. Accepting physician Dr. Moore. (Jignesh Donnelly) - Lab Data Lab Results 08/12/19 08/12/19 08/12/19 Range/Units 18:30 18:30 18:30 WBC 18.5 H (3.8-10.6) k/uL RBC 2.67 L (3.80-5.40) m/uL Hgb 7.8 L (11.4-16.0) gm/dL Hct 24.4 L (34.0-46.0) % MCV 91.4 (80.0-100.0) fL MCH 29.2 (25.0-35.0) pg MCHC 31.9 (31.0-37.0) g/dL RDW 15.4 (11.5-15.5) % Plt Count 338 (150-450) k/uL Neutrophils % 83 % Lymphocytes % 11 % Monocytes % 4 % Eosinophils % 1 % Basophils % 0 % Neutrophils # 15.4 H (1.3-7.7) k/uL Lymphocytes # 2.0 (1.0-4.8) k/uL Monocytes # 0.8 (0-1.0) k/uL Eosinophils # 0.1 (0-0.7) k/uL Basophils # 0.0 (0-0.2) k/uL PT 10.4 (9.0-12.0) sec INR 1.0 (<1.2) APTT 18.3 L (22.0-30.0) sec D-Dimer 7.56 H (<0.60) mg/L FEU Sodium 135 L (137-145) mmol/L Potassium 4.1 (3.5-5.1) mmol/L Chloride 101 (98-107) mmol/L Carbon Dioxide 26 (22-30) mmol/L Anion Gap 8 mmol/L BUN 19 H (7-17) mg/dL Creatinine 1.09 H (0.52-1.04) mg/dL Est GFR (CKD-EPI)AfAm 53 (>60 ml/min/1.73 sqM) Est GFR (CKD-EPI)NonAf 46 (>60 ml/min/1.73 sqM) Glucose 49 L* (74-99) mg/dL POC Glucose (mg/dL) (75-99) mg/dL POC Glu Incident Response Manager ID Calcium 11.6 H (8.4-10.2) mg/dL Phosphorus 4.3 (2.5-4.5) mg/dL Magnesium 1.6 (1.6-2.3) mg/dL Total Bilirubin 0.8 (0.2-1.3) mg/dL AST 40 H (14-36) U/L ALT 15 (4-34) U/L Alkaline Phosphatase 118 (38-126) U/L Troponin I (0.000-0.034) ng/mL NT-Pro-B Natriuret Pep pg/mL Total Protein 6.7 (6.3-8.2) g/dL Albumin 3.8 (3.5-5.0) g/dL Urine Color Urine Appearance (Clear) Urine pH (5.0-8.0) Ur Specific [place] (1.001-1.035) Urine Protein (Negative) Urine Glucose (UA) (Negative) Urine Ketones (Negative) Urine Blood (Negative) Urine Nitrite (Negative) Urine Bilirubin (Negative) Urine Urobilinogen (<2.0) mg/dL Ur Leukocyte Esterase (Negative) Urine RBC (0-5) /hpf Urine WBC (0-5) /hpf Ur Squamous Epith Cells (0-4) /hpf Hyaline Casts (0-2) /lpf Urine Mucus (None) /hpf Urine Yeast (Budding) (None) /hpf Stool Occult Blood (Negative) 08/12/19 08/12/19 08/12/19 Range/Units 18:30 18:30 19:20 WBC (3.8-10.6) k/uL RBC (3.80-5.40) m/uL Hgb (11.4-16.0) gm/dL Hct (34.0-46.0) % MCV (80.0-100.0) fL MCH (25.0-35.0) pg MCHC (31.0-37.0) g/dL RDW (11.5-15.5) % Plt Count (150-450) k/uL Neutrophils % % Lymphocytes % % Monocytes % % Eosinophils % % Basophils % % Neutrophils # (1.3-7.7) k/uL Lymphocytes # (1.0-4.8) k/uL Monocytes # (0-1.0) k/uL Eosinophils # (0-0.7) k/uL Basophils # (0-0.2) k/uL PT (9.0-12.0) sec INR (<1.2) APTT (22.0-30.0) sec D-Dimer (<0.60) mg/L FEU Sodium (137-145) mmol/L Potassium (3.5-5.1) mmol/L Chloride (98-107) mmol/L Carbon Dioxide (22-30) mmol/L Anion Gap mmol/L BUN (7-17) mg/dL Creatinine (0.52-1.04) mg/dL Est GFR (CKD-EPI)AfAm (>60 ml/min/1.73 sqM) Est GFR (CKD-EPI)NonAf (>60 ml/min/1.73 sqM) Glucose (74-99) mg/dL POC Glucose (mg/dL) (75-99) mg/dL POC Glu Incident Response Manager ID Calcium (8.4-10.2) mg/dL Phosphorus (2.5-4.5) mg/dL Magnesium (1.6-2.3) mg/dL Total Bilirubin (0.2-1.3) mg/dL AST (14-36) U/L ALT (4-34) U/L Alkaline Phosphatase (38-126) U/L Troponin I <0.012 (0.000-0.034) ng/mL NT-Pro-B Natriuret Pep 187 pg/mL Total Protein (6.3-8.2) g/dL Albumin (3.5-5.0) g/dL Urine Color Urine Appearance (Clear) Urine pH (5.0-8.0) Ur Specific [place] (1.001-1.035) Urine Protein (Negative) Urine Glucose (UA) (Negative) Urine Ketones (Negative) Urine Blood (Negative) Urine Nitrite (Negative) Urine Bilirubin (Negative) Urine Urobilinogen (<2.0) mg/dL Ur Leukocyte Esterase (Negative) Urine RBC (0-5) /hpf Urine WBC (0-5) /hpf Ur Squamous Epith Cells (0-4) /hpf Hyaline Casts (0-2) /lpf Urine Mucus (None) /hpf Urine Yeast (Budding) (None) /hpf Stool Occult Blood Negative (Negative) 08/12/19 08/12/19 Range/Units 20:29 21:36 WBC (3.8-10.6) k/uL RBC (3.80-5.40) m/uL Hgb (11.4-16.0) gm/dL Hct (34.0-46.0) % MCV (80.0-100.0) fL MCH (25.0-35.0) pg MCHC (31.0-37.0) g/dL RDW (11.5-15.5) % Plt Count (150-450) k/uL Neutrophils % % Lymphocytes % % Monocytes % % Eosinophils % % Basophils % % Neutrophils # (1.3-7.7) k/uL Lymphocytes # (1.0-4.8) k/uL Monocytes # (0-1.0) k/uL Eosinophils # (0-0.7) k/uL Basophils # (0-0.2) k/uL PT (9.0-12.0) sec INR (<1.2) APTT (22.0-30.0) sec D-Dimer (<0.60) mg/L FEU Sodium (137-145) mmol/L Potassium (3.5-5.1) mmol/L Chloride (98-107) mmol/L Carbon Dioxide (22-30) mmol/L Anion Gap mmol/L BUN (7-17) mg/dL Creatinine (0.52-1.04) mg/dL Est GFR (CKD-EPI)AfAm (>60 ml/min/1.73 sqM) Est GFR (CKD-EPI)NonAf (>60 ml/min/1.73 sqM) Glucose (74-99) mg/dL POC Glucose (mg/dL) 113 H (75-99) mg/dL POC Glu Incident Response Manager ID Zoila Peterson Calcium (8.4-10.2) mg/dL Phosphorus (2.5-4.5) mg/dL Magnesium (1.6-2.3) mg/dL Total Bilirubin (0.2-1.3) mg/dL AST (14-36) U/L ALT (4-34) U/L Alkaline Phosphatase (38-126) U/L Troponin I (0.000-0.034) ng/mL NT-Pro-B Natriuret Pep pg/mL Total Protein (6.3-8.2) g/dL Albumin (3.5-5.0) g/dL Urine Color Yellow Urine Appearance Cloudy H (Clear) Urine pH 5.5 (5.0-8.0) Ur Specific [place] 1.048 H (1.001-1.035) Urine Protein Negative (Negative) Urine Glucose (UA) Negative (Negative) Urine Ketones Negative (Negative) Urine Blood Negative (Negative) Urine Nitrite Negative (Negative) Urine Bilirubin Negative (Negative) Urine Urobilinogen <2.0 (<2.0) mg/dL Ur Leukocyte Esterase Negative (Negative) Urine RBC 7 H (0-5) /hpf Urine WBC 2 (0-5) /hpf Ur Squamous Epith Cells 1 (0-4) /hpf Hyaline Casts 18 H (0-2) /lpf Urine Mucus Occasional H (None) /hpf Urine Yeast (Budding) Few H (None) /hpf Stool Occult Blood (Negative) - EKG Data EKG Comments: 2873. Phone 60, QRS 72, QT/QTc 42/442. Normal sensory and sensory exam. Normal EKG. No concern for acute ischemia at this time. (Jignesh Donnelly) Disposition <Varun Porras - Last Filed: 08/12/19 23:56> Is patient prescribed a controlled substance at d/c from ED?: No <Jignesh Donnelly - Last Filed: 08/13/19 00:14> Clinical Impression: Anemia, Chest pain, Fall Disposition: ADMITTED IP TO THIS HOSP Condition: Serious
[2019-08-13] MEDS ORDERED: AZITHROMYCIN 500 MG in SODIUM CHLORIDE 0.9% 250 ML IVPB STA (00:10)
[2019-08-13 01:14] LABS: Glucose,Whole Blood 117 mg/dL (75-99)
--- NOTE | 2019-08-13 05:51 | P.HPIM ---
History of Present Illness H&P Date: 08/13/19 Patient is an 89-year-old female with a PMH of history of breast cancer status post bilateral mastectomy (second mastectomy 10 years ago), type II DM, hypertension, and hyperlipidemia presented to the ED with complaints of diffuse bone and joint pain. The patient notes that she has been suffering from diffuse pain for about 5-6 months now, for which she was initially referred to a rn hematology. She notes that the rn hematology however discharged her from her practice after the patient was found to have fractures of unknown etiology. She reports undergoing several x-rays recently which revealed fractures after which the rn hematology referred her to orthopedic surgery, whom she did not have the chance to see yet. The patient notes that her diffuse pain however gradually worsened to the point where it was a 10 out of 10 earlier today at which point she decided to come to the emergency room. At time of interview, she notes that the pain is somewhat improved at a 7 out of 10, is located in multiple parts of body including ankles, forearms, upper back, arms, hips, and legs. The patient denied any falls or trauma. The patient also noted that she has had intermittent substernal chest discomfort for the past few days, sharp to pressure-like in nature, with no clear alleviating or exacerbating features, 7 out of 10 in intensity, and nonradiating. She denied associated shortness of breath, nausea, vomiting, palpitations, or dizziness. She also denied cough, fever, or chills. She underwent an extensive evaluation in the emergency room with chest x-ray showing bilateral multiple healing rib fractures with a healing right scapular fracture. Thoracic spine x-ray revealed numerous osteoporotic type compression fractures. Head/cervical spine CT revealed minor degenerative disc changes of the cervical spine with no fractures. Chest and Abdominal CT revealed interstitial infiltrates and atelectasis and pleural getting at the lung bases with compression fractures of the spine at multiple levels with metastatic disease not excluded. EKG revealed revealed a normal sinus rhythm with sinus arrhythmia 73 bpm. Laboratory evaluation revealed a WBC count of 18.5, hemoglobin 7.8, platelets 338, sodium 135, potassium 4.1, BUN 19, creatinine 1.09, calcium 11.6, troponin less than 0.012, and FOBT negative. Review of Systems Pertinent positives and negatives as discussed in HPI, a complete review of systems was performed and all other systems are negative. Past Medical History Past Medical History: Cancer, Diabetes Mellitus, Hyperlipidemia, Hypertension Additional Past Medical History / Comment(s): Breast cancer received chemo , skin cancer, arthritis. History of Any Multi-Drug Resistant Organisms: None Reported Past Surgical History: Appendectomy, Hysterectomy Additional Past Surgical History / Comment(s): bilateral mastectomy Past Anesthesia/Blood Transfusion Reactions: No Reported Reaction Past Psychological History: Anxiety Smoking Status: Never smoker Past Alcohol Use History: None Reported Additional Past Alcohol Use History / Comment(s): Use to drink 25 years ago. Does not drink anymore. Past Drug Use History: None Reported - Past Family History Father History Unknown: Yes Mother History Unknown: Yes Medications and Allergies Home Medications Medication Instructions Recorded Confirmed Type Allopurinol [Zyloprim] 300 mg PO HS 07/13/18 08/12/19 History Insulin Lispro Protamin/Lispro 30 unit SQ AC-SUPPER 07/13/18 08/12/19 History [humaLOG Mix 75-25 Kwikpen] Insulin Lispro Protamin/Lispro 75 unit SQ AC-BRKFST 07/13/18 08/12/19 History [humaLOG Mix 75-25 Kwikpen] Lisinopril [Zestril] 20 mg PO DAILY 07/13/18 08/12/19 History Simvastatin [Zocor] 20 mg PO HS 07/13/18 08/12/19 History amLODIPine [Norvasc] 5 mg PO DAILY 07/13/18 08/12/19 History Ibuprofen [Motrin] 400 mg PO Q8HR PRN 7 Days #21 tab 03/19/19 08/12/19 Rx Vitamin B Complex 1 cap PO DAILY 03/19/19 08/12/19 History Aspirin EC [Ecotrin] 325 mg PO DAILY 08/12/19 08/12/19 History Escitalopram Oxalate [Lexapro] 10 mg PO DAILY 08/12/19 08/12/19 History traMADol HCL [Ultram] 50 mg PO TID 08/12/19 08/12/19 History Allergies Allergy/AdvReac Type Severity Reaction Status Date / Time sulfamethoxazole AdvReac Unknown Verified 03/19/19 12:38 [From Bactrim] trimethoprim [From Bactrim] AdvReac Unknown Verified 03/19/19 12:38 Physical Exam Vitals: Vital Signs Temp Pulse Pulse Resp BP BP Pulse Ox 08/13/19 04:00 98.2 F 72 20 182/76 94 L 08/13/19 01:13 97.9 F 77 18 189/77 96 08/13/19 00:10 98.6 F 77 16 146/76 97 08/12/19 22:50 98.2 F 68 18 168/55 96 08/12/19 22:38 18 08/12/19 19:00 76 18 138/96 97 08/12/19 16:10 97.8 F 94 18 138/97 97 Intake and Output 08/12/19 08/12/19 08/13/19 14:59 22:59 06:59 Other: Weight 62.596 kg 62 kg General: non toxic, no distress, appears at stated age, normal weight Derm: no unusual rashes/lesions no unusual ecchymoses, warm, dry Head: atraumatic, normocephalic, symmetric Eyes: EOMI, no lid lag, anicteric sclera, pupils equal round reactive to light ENT: Nose and ears atraumatic, no thrush, no pharyngeal erythema Neck: No thyromegaly, no cervical lymphadenopathy, trachea midline, supple Mouth: no lip lesion, mucus membranes moist Cardiovascular: S1S2 reg, no murmur, positive posterior tibial pulse bilateral, no edema, capillary refill less than 2 seconds Lungs: CTA bilateral, no rhonchi, no rales , no accessory muscle use Abdominal: soft, nontender to palpation, no guarding, no appreciable organomegaly, normal bowel sounds Ext: no gross muscle atrophy, muscle strength 5 out of 5 in all 4 extremities grossly, no contractures, no tenderness of painful spots noted including ankles, arms, and forearms Neuro: CN II-XI grossly intact, light touch intact all 4 extremities, finger to nose within normal limits, Psych: Alert, oriented, appropriate affect Results CBC & Chem 7: 08/12/19 18:30 08/12/19 18:30 Labs: Abnormal Lab Results - Last 24 Hours (Table) 08/12/19 08/12/19 08/12/19 Range/Units 18:30 18:30 18:30 WBC 18.5 H (3.8-10.6) k/uL RBC 2.67 L (3.80-5.40) m/uL Hgb 7.8 L (11.4-16.0) gm/dL Hct 24.4 L (34.0-46.0) % Neutrophils # 15.4 H (1.3-7.7) k/uL APTT 18.3 L (22.0-30.0) sec D-Dimer 7.56 H (<0.60) mg/L FEU Sodium 135 L (137-145) mmol/L BUN 19 H (7-17) mg/dL Creatinine 1.09 H (0.52-1.04) mg/dL Glucose 49 L* (74-99) mg/dL POC Glucose (mg/dL) (75-99) mg/dL Calcium 11.6 H (8.4-10.2) mg/dL AST 40 H (14-36) U/L Urine Appearance (Clear) Ur Specific [place] (1.001-1.035) Urine RBC (0-5) /hpf Hyaline Casts (0-2) /lpf Urine Mucus (None) /hpf Urine Yeast (Budding) (None) /hpf 08/12/19 08/12/19 08/13/19 Range/Units 20:29 21:36 01:13 WBC (3.8-10.6) k/uL RBC (3.80-5.40) m/uL Hgb (11.4-16.0) gm/dL Hct (34.0-46.0) % Neutrophils # (1.3-7.7) k/uL APTT (22.0-30.0) sec D-Dimer (<0.60) mg/L FEU Sodium (137-145) mmol/L BUN (7-17) mg/dL Creatinine (0.52-1.04) mg/dL Glucose (74-99) mg/dL POC Glucose (mg/dL) 113 H 117 H (75-99) mg/dL Calcium (8.4-10.2) mg/dL AST (14-36) U/L Urine Appearance Cloudy H (Clear) Ur Specific [place] 1.048 H (1.001-1.035) Urine RBC 7 H (0-5) /hpf Hyaline Casts 18 H (0-2) /lpf Urine Mucus Occasional H (None) /hpf Urine Yeast (Budding) Few H (None) /hpf Thrombosis Risk Factor Assmnt - Choose All That Apply Other Risk Factors: Yes Each Risk Factor Represents 3 Points: Age 75 years or older Thrombosis Risk Factor Assessment Total Risk Factor Score: 3 Thrombosis Risk Factor Assessment Level: Moderate Risk Assessment and Plan Plan: Diffuse pain with multiple fractures in setting of hypercalcemia, anemia, and acute kidney injury, suspicious for multiple myeloma versus hyperparathyroidism -Check SPEP and UPEP -Order PTH levels -May consider hematology consult -Perform anemia workup Leukocytosis, neutrophil dominant -No clear signs of infection -Monitor CBC for now Chest pain, rule out ACS -Trend troponin -Cardiac monitoring Type 2 diabetes mellitus -Continue with insulin sliding scale with blood glucose monitoring -Levemir 25 units daily at bedtime Chronic conditions: Hypertension, hyperlipidemia -Hold off on lisinopril and allopurinol in setting of acute kidney injury -Continue with home Norvasc and Zocor dosing DVT prophylaxis -IPCDs The patient is admitted with an anticipated greater than 2 midnight stay for evaluation of diffuse pain CODE STATUS: No Code Discussed with: Patient Anticipated discharge date: 2-[address]: Home A total of 40 minutes was spent on the care of this complex patient more than 50% of the time was spent in counseling and care coordination.
--- NOTE | 2019-08-13 06:00 | P.PN ---
Progress Note - Text Progress Note Date: 08/13/19 Advanced Care Planning Active Diagnosis: Diffuse pain Persons present: Patient Summary: Discussed the patient's goals of care in great detail. The patient reported that at her age, she does not feel that undergoing CPR would be in her best interest. She reports that due to her multiple chronic conditions and her advanced age, that if it is her time, that she would like to be allowed to pass peacefully. She wishes to be a no code, though would consider certain forms of life support depending upon the situation. Will make patient No Code with instructions. Time spent: Total time spent face to face in education and discussion directly related to advanced care plannin minutes
[2019-08-13] MEDS ORDERED: MORPHINE SULFATE 2 MG/ML SYRINGE IVP PRN (06:14)
[2019-08-13 06:29] LABS: Glucose,Whole Blood 98 mg/dL (75-99)
[2019-08-13] MEDS: INSULIN ASPART (NovoLOG) 100 UNIT/ML VIAL SQ SCH ×4 (06:30→20:40)
[2019-08-13] MEDS: traMADol 50 MG TAB PO PRN (06:31)
[2019-08-13] MEDS ORDERED: amLODIPine 5 MG TAB PO SCH (09:00)
[2019-08-13] MEDS: ASPIRIN 325 MG TAB PO SCH (09:22)
[2019-08-13] MEDS: ESCITALOPRAM 10 MG TAB PO SCH (09:22)
--- NOTE | 2019-08-13 10:44 | CONS ---
CONSULTATION Mrs Peoples is an 89-year-old female who presented with symptoms of diffuse achiness and discomfort. The patient has no prior cardiac history according to her, but she has been complaining of progressive achiness and aggressive weakness. In the emergency room, she was noted to be in sinus mechanism. The patient is limited in physical activity, has some dyspnea on exertion. No significant peripheral edema. She has some dizziness but no palpitation. No syncope. No clear PND, nor orthopnea. Her coronary risk factors remarkable for history of diabetes, history of hyperlipidemia, hypertension. She is a nonsmoker. MEDICATIONS: Include aspirin, Lexapro, insulin, Zestril 20 mg daily, simvastatin 20 mg daily, Norvasc 5 mg daily, and Ultram. Her past medical history is remarkable for history of breast cancer, status post mastectomy bilaterally, history of diabetes, hypertension, hyperlipidemia. REVIEW OF SYSTEMS: RESPIRATORY SYSTEM: she had dyspnea on exertion, but no recent wheezing or cough. GI SYSTEM: No recent GI bleeding. No peptic ulcer disease. SYSTEM: No dysuria or hematuria. NERVOUS SYSTEM: She denies any stroke or seizure. PHYSICAL EXAMINATION: An 89-year-old female, alert, oriented, in no apparent distress. Blood pressure running in the 130s to 160s with a heart rate in the 70s. HEAD: Normocephalic. EYES: Sclerae nonicteric. NECK: Good upstroke, no bruit. LUNGS: Clear to auscultation. HEART: Regular rate and rhythm, S1, S2. No S3 with systolic murmur, ejection type heard at the base. No diastolic murmur, no rub. ABDOMEN: Soft, nontender, positive bowel sounds, no organomegaly. EXTREMITIES: No edema. LAB DATA: Revealed a hemoglobin of 7.8, BUN and creatinine 19 and 1.09. D-dimer 7.56. Troponin less than 0.012. NT proBNP of 187. Her white blood cell of 18.5. Her anemia is new compared to March 2019. EKG reveals sinus mechanism, normal axis and intervals. No acute changes. Chest CT angiogram revealed no evidence of pulmonary embolism with multiple thoracic compression factor with possible metastatic disease. Abdominal, pelvis CT revealed atherosclerotic vascular disease with compression fracture of the spine. Chest x-ray revealed multiple healing rib fractures, which is new. IMPRESSION: 1. Generalized achiness and weakness with multiple bone fracture, rule out malignancy or metastatic disease. Possible multiple myeloma cannot be excluded. 2. Anemia, new. 3. Chest discomfort, atypical for ischemic heart disease. 4. Hypertension. RECOMMENDATION: From the cardiac standpoint, will obtain echocardiogram with Doppler. I see no evidence of active cardiac disease. Depending on her progress, further recommendation will be made. Thank you for this consult. Will follow with you. MMODL / IJN: [id number] /
[2019-08-13] MEDS ORDERED: LORazepam 2 MG/ML INJ IV STA (11:05)
--- NOTE | 2019-08-13 11:11 | ECHOF ---
Referral Reason:htn MEASUREMENTS -------- HEIGHT: 157.5 cm WEIGHT: 61.7 kg BP: 182/76 RVIDd: 2.6 cm (< 3.3) IVSd: 1.1 cm (0.6 - 1.1) LVIDd: 4.7 cm (3.9 - 5.3) LVPWd: 1.1 cm (0.6 - 1.1) IVSs: 1.6 cm LVIDs: 2.7 cm LVPWs: 1.3 cm LA Diam: 3.5 cm (2.7 - 3.8) LAESV Index (A-L): 25.38 ml/m Ao Diam: 2.5 cm (2.0 - 3.7) AV Cusp: 1.5 cm (1.5 - 2.6) MV EXCURSION: 10.325 mm (> 18.000) MV EF SLOPE: 32 mm/s (70 - 150) EPSS: 1.5 cm MV E Cyril: 1.17 m/s MV DecT: 184 ms MV A Cyril: 1.49 m/s MV E/A Ratio: 0.79 RAP: 5.00 mmHg RVSP: 33.43 mmHg FINDINGS -------- This was a technically adequate study. The left ventricular size is normal. There is borderline concentric left ventricular hypertrophy. Overall left ventricular systolic function is normal with, an EF between 60 - 65 %. The right ventricle is normal in size. The right atrium is normal in size. The aortic valve is trileaflet and appears structurally normal. The mitral valve leaflets are mildly thickened. Mild mitral annular calcification present. Mild m itral regurgitation is present. Mild tricuspid regurgitation present. Right ventricular systolic pressure is normal at < 35 mmHg. There is no pulmonic regurgitation present. The aortic root size is normal. Normal inferior vena cava with normal inspiratory collapse consistent with estimated right atrial pre ssure of 5 mmHg. There is no pericardial effusion. CONCLUSIONS -------- 1. This was a technically adequate study. 2. The left ventricular size is normal. 3. There is borderline concentric left ventricular hypertrophy. 4. Overall left ventricular systolic function is normal with, an EF between 60 - 65 %. 5. The right ventricle is normal in size. 6. The right atrium is normal in size. 7. The aortic valve is trileaflet and appears structurally normal. 8. The mitral valve leaflets are mildly thickened. 9. Mild mitral annular calcification present. 10. Mild mitral regurgitation is present. 11. Mild tricuspid regurgitation present. 12. Right ventricular systolic pressure is normal at < 35 mmHg. 13. There is no pulmonic regurgitation present. 14. The aortic root size is normal. 15. Normal inferior vena cava with normal inspiratory collapse consistent with estimated right atrial pressure of 5 mmHg. 16. There is no pericardial effusion. METROLOGY MANAGER: Dinora Hendricks RDCS
--- NOTE | 2019-08-13 11:18 | P.PN ---
Progress Note - Text Progress Note Date: 08/13/19 Patient seen and examined awaiting results of SPEP, UPEP, and PTH. Also awaiting oncology evaluation. Seen by cardio, echo looking ok. Order MRI spine, thoracic and lumbar.
[2019-08-13 11:41] LABS: Glucose,Whole Blood 201 mg/dL (75-99)
[2019-08-13 12:18] LABS: % Iron Saturation 10.13 (12.00-45.00); Protein, Total 6.1 g/dL (6.2-8.2)
[2019-08-13 12:27] LABS: Ferritin 121.5 ng/mL (10.0-291.0)
--- NOTE | 2019-08-13 13:09 | P.CONS ---
History of Present Illness - Reason for Consult Consult date: 08/13/19 suspicion for MM Requesting physician: Kurtis Moore - Chief Complaint intractable pain - History of Present Illness Mrs. Peoples is a very pleasant 89-year-old female who is in overall good health with only a few chronic medical conditions all of which are well-controlled. She states that in March she started having increased generalized bone pain, she has been worked up and treated for arthritis, over the past 6 months though, back pain has increase, associated with 15 pound weight loss, decreased appetite, denied fevers, night sweats, nausea, difficulty swallowing, vomiting, respiratory changes, new or unusual cough, changes in her chest wall (bilateral mastectomies), acute changes in bowel or bladder habits, numbness or tingling in the lower extremities, she does have some generalized weakness but, denies that this is extreme. she has a history of right breast cancer in 1988, treated with chemo and surgery, left breast cancer in 1998 treated with surgery and chemo, both treated by Dr. Persaud,she does not remember if she took an AI. Review of Systems 14 point ROS is negative except as stated in HPI Past Medical History Past Medical History: Cancer, Diabetes Mellitus, Hyperlipidemia, Hypertension Additional Past Medical History / Comment(s): Breast cancer received chemo , skin cancer, arthritis. History of Any Multi-Drug Resistant Organisms: None Reported Past Surgical History: Appendectomy, Hysterectomy Additional Past Surgical History / Comment(s): bilateral mastectomy Past Anesthesia/Blood Transfusion Reactions: No Reported Reaction Past Psychological History: Anxiety Smoking Status: Never smoker Past Alcohol Use History: None Reported Additional Past Alcohol Use History / Comment(s): Use to drink 25 years ago. Does not drink anymore. Past Drug Use History: None Reported - Past Family History Father History Unknown: Yes Mother History Unknown: Yes Medications and Allergies Home Medications Medication Instructions Recorded Confirmed Type Allopurinol [Zyloprim] 300 mg PO HS 07/13/18 08/12/19 History Insulin Lispro Protamin/Lispro 30 unit SQ AC-SUPPER 07/13/18 08/12/19 History [humaLOG Mix 75-25 Kwikpen] Insulin Lispro Protamin/Lispro 75 unit SQ AC-BRKFST 07/13/18 08/12/19 History [humaLOG Mix 75-25 Kwikpen] Lisinopril [Zestril] 20 mg PO DAILY 07/13/18 08/12/19 History Simvastatin [Zocor] 20 mg PO HS 07/13/18 08/12/19 History amLODIPine [Norvasc] 5 mg PO DAILY 07/13/18 08/12/19 History Ibuprofen [Motrin] 400 mg PO Q8HR PRN 7 Days #21 tab 03/19/19 08/12/19 Rx Vitamin B Complex 1 cap PO DAILY 03/19/19 08/12/19 History Aspirin EC [Ecotrin] 325 mg PO DAILY 08/12/19 08/12/19 History Escitalopram Oxalate [Lexapro] 10 mg PO DAILY 08/12/19 08/12/19 History traMADol HCL [Ultram] 50 mg PO TID 08/12/19 08/12/19 History Allergies Allergy/AdvReac Type Severity Reaction Status Date / Time sulfamethoxazole AdvReac Unknown Verified 03/19/19 12:38 [From Bactrim] trimethoprim [From Bactrim] AdvReac Unknown Verified 03/19/19 12:38 Physical Exam Vitals: Vital Signs Temp Pulse Pulse Resp BP BP Pulse Ox 08/13/19 08:00 99.3 F 77 16 174/59 93 L 08/13/19 04:00 98.2 F 72 20 182/76 94 L 08/13/19 01:13 97.9 F 77 18 189/77 96 08/13/19 00:10 98.6 F 77 16 146/76 97 08/12/19 22:50 98.2 F 68 18 168/55 96 08/12/19 22:38 18 08/12/19 19:00 76 18 138/96 97 08/12/19 16:10 97.8 F 94 18 138/97 97 Intake and Output 08/12/19 08/13/19 08/13/19 22:59 06:59 14:59 Intake Total 240 240 Balance 240 240 Intake: Oral 240 240 Other: # Voids 1 Weight 62.596 kg 62 kg - Constitutional General appearance: average body habitus, cooperative, no acute distress - EENT Eyes: anicteric sclerae, EOMI ENT: hearing grossly normal, normal oropharynx - Neck Neck: no lymphadenopathy - Respiratory Respiratory: bilateral: CTA - Cardiovascular Rhythm: regular Heart sounds: normal: S1, S2 Abnormal Heart Sounds: no systolic murmur, no diastolic murmur, no rub, no S3 Gallop, no S4 Gallop, no click, no other leg Peripheral Edema: bilateral: None - Gastrointestinal General gastrointestinal: no absent bowel sounds, no decreased bowel sounds, no distended, no hepatomegaly, no hyperactive bowel sounds, normal bowel sounds, no organomegaly, no rigid, no scaphoid, soft, no splenomegaly, no tenderness, no umbilical hernia, no ventral hernia - Integumentary Integumentary: normal - Neurologic Neurologic: CNII-XII intact - Musculoskeletal pain with palpation of the T/L spine Musculoskeletal: strength equal bilaterally - Psychiatric Psychiatric: A&O x's 3, appropriate affect, intact judgment & insight Results CBC & Chem 7: 08/12/19 18:30 08/12/19 18:30 Labs: Abnormal Lab Results - Last 24 Hours (Table) 08/12/19 08/12/19 08/12/19 Range/Units 18:30 18:30 18:30 WBC 18.5 H (3.8-10.6) k/uL RBC 2.67 L (3.80-5.40) m/uL Hgb 7.8 L (11.4-16.0) gm/dL Hct 24.4 L (34.0-46.0) % Neutrophils # 15.4 H (1.3-7.7) k/uL APTT 18.3 L (22.0-30.0) sec D-Dimer 7.56 H (<0.60) mg/L FEU Sodium 135 L (137-145) mmol/L BUN 19 H (7-17) mg/dL Creatinine 1.09 H (0.52-1.04) mg/dL Glucose 49 L* (74-99) mg/dL POC Glucose (mg/dL) (75-99) mg/dL Calcium 11.6 H (8.4-10.2) mg/dL AST 40 H (14-36) U/L HDL Cholesterol (40-60) mg/dL Urine Appearance (Clear) Ur Specific Lucas (1.001-1.035) Urine RBC (0-5) /hpf Hyaline Casts (0-2) /lpf Urine Mucus (None) /hpf Urine Yeast (Budding) (None) /hpf 08/12/19 08/12/19 08/13/19 Range/Units 20:29 21:36 01:13 WBC (3.8-10.6) k/uL RBC (3.80-5.40) m/uL Hgb (11.4-16.0) gm/dL Hct (34.0-46.0) % Neutrophils # (1.3-7.7) k/uL APTT (22.0-30.0) sec D-Dimer (<0.60) mg/L FEU Sodium (137-145) mmol/L BUN (7-17) mg/dL Creatinine (0.52-1.04) mg/dL Glucose (74-99) mg/dL POC Glucose (mg/dL) 113 H 117 H (75-99) mg/dL Calcium (8.4-10.2) mg/dL AST (14-36) U/L HDL Cholesterol (40-60) mg/dL Urine Appearance Cloudy H (Clear) Ur Specific Lucas 1.048 H (1.001-1.035) Urine RBC 7 H (0-5) /hpf Hyaline Casts 18 H (0-2) /lpf Urine Mucus Occasional H (None) /hpf Urine Yeast (Budding) Few H (None) /hpf 08/13/19 Range/Units 05:58 WBC (3.8-10.6) k/uL RBC (3.80-5.40) m/uL Hgb (11.4-16.0) gm/dL Hct (34.0-46.0) % Neutrophils # (1.3-7.7) k/uL APTT (22.0-30.0) sec D-Dimer (<0.60) mg/L FEU Sodium (137-145) mmol/L BUN (7-17) mg/dL Creatinine (0.52-1.04) mg/dL Glucose (74-99) mg/dL POC Glucose (mg/dL) (75-99) mg/dL Calcium (8.4-10.2) mg/dL AST (14-36) U/L HDL Cholesterol 70 H (40-60) mg/dL Urine Appearance (Clear) Ur Specific Lucas (1.001-1.035) Urine RBC (0-5) /hpf Hyaline Casts (0-2) /lpf Urine Mucus (None) /hpf Urine Yeast (Budding) (None) /hpf CT scan - abdomen: report reviewed CT scan - chest: report reviewed CT scan - pelvis: report reviewed Assessment and Plan (1) Compression fracture Narrative/Plan: compression fractures found on CT of the abdomen and pelvis and CT of the chest. patient had an x-ray of the T-spine and March of this year, the fractures are new since then. MRI of the thoracic and lumbar spine ordered. Current Visit: Yes Status: Acute Priority: High Code(s): SQQ5715 - SNOMED Code(s): 132078771 (2) Hypercalcemia Narrative/Plan: New-onset, elevated 11.6. Pending parathyroid hormone results, if normal, bisphosphonate therapy recommended. Current Visit: Yes Status: Acute Priority: High Code(s): E83.52 - HYPERCALCEMIA SNOMED Code(s): 77199116 (3) Anemia Narrative/Plan: New-onset. No transfusion required at this time. Transfuse for hemoglobin less than 7 or if symptomatic. Patient is currently being worked up for metastatic breast cancer and multiple myeloma Current Visit: Yes Status: Acute Priority: High Code(s): D64.9 - ANEMIA, UNSPECIFIED SNOMED Code(s): 699140971 (4) Breast cancer Narrative/Plan: History of, right breast 1988, left breast 1998, surgery and chemotherapy treatment. Tumor markers have been ordered Current Visit: No Status: Chronic Priority: Medium Code(s): C50.919 - MALIGNANT NEOPLASM OF UNSP SITE OF UNSPECIFIED FEMALE BREAST SNOMED Code(s): 616915505 Plan: Acute compression fractures, new onset anemia and hypercalcemia all very suspicious for multiple myeloma. Workup has been ordered for the same. Patient also has a history of metastatic breast cancer. DDx recurrent cancer or new cancer were discussed with the patient. She verbalized understanding the workup. Doctor attests: I performed a history and physical examination of this patient, developed impression and plan of care, discussed with dictator. I agree with dictators note, documented as a scribe.
[2019-08-13 16:49] LABS: Glucose,Whole Blood 146 mg/dL (75-99)
[2019-08-13 20:15] LABS: Glucose,Whole Blood 251 mg/dL (75-99)
[2019-08-13] MEDS: ATORVASTATIN 10 MG TAB PO SCH (20:39)
[2019-08-13] MEDS ORDERED: INSULIN DETEMIR (LEVEMIR) 100 UNIT/ML SYR SQ SCH (21:00)
[2019-08-14] MEDS: amLODIPine 10 MG TAB PO SCH ×2 (06:08→06:09)
[2019-08-14 06:20] LABS: Glucose,Whole Blood 61 mg/dL (75-99)
[2019-08-14 06:33] LABS: Glucose,Whole Blood 73 mg/dL (75-99)
[2019-08-14 07:32] LABS: Calcium 10.6 mg/dL (8.4-10.2); Potassium 4.6 mmol/L (3.5-5.1)
[2019-08-14 07:44] LABS: HCT 37.6 % (34.0-46.0); MCH 30.6 pg (25.0-35.0); MCHC 33.4 g/dL (31.0-37.0); MCV 91.6 fL (80.0-100.0); Mean Platelet Volume 7.1; Platelet Count 224 k/uL (150-450); RDW 14.9 % (11.5-15.5); WBC 10.6 k/uL (3.8-10.6)
[2019-08-14 07:53] LABS: HGB 12.6 gm/dL (11.4-16.0)
[2019-08-14 08:31] LABS: Glucose,Whole Blood 102 mg/dL (75-99)
--- NOTE | 2019-08-14 09:05 | MR ---
EXAMINATION TYPE: MR marcela/lspine wo/w con DATE OF EXAM: 08/14/2019 COMPARISON: CT 08/12/2019 HISTORY: Compression Fx's, Back Pain, Verify Myeloma TECHNIQUE: Multiplanar, multisequence images of the thoracic and lumbar spine is performed without and with IV c ontrast, utilizing 6.5 mL intravenous Gadavist FINDINGS: There are small pleural effusions. There are multiple areas of abnormal marrow signal to include posterior aspect of T3, T5 vertebral yahir dy to the left of midline, T7, T9, T11 and T12, L1, L2, L3, L4 and L5 consistent with patient's histo ry of multiple myeloma. Intermediate signal seen on T2 and T1-weighted images, some enhancement noted following contrast administration. Multilevel spondylosis is present. Multilevel loss of disc height signal, endplate discogenic marrow signal changes present consistent with degenerative disc disease. There is a spinal curvature present. There is no significant spinal stenosis thoracic spine. Loss of height is present anteriorly at T11 and also at T9, T7. Focus of increased signal within the vertebral body at T6 on T1 and T2-weighted sequences likely represents hemangioma. Multilevel posteri or disc bulges causes mild anterior mass effect on the thecal sac thoracic spine. Facet arthropathy c hanges are present at the lower thoracic spine. L5-S1 shows circumferential posterior extension endplate disc complex encroaches somewhat towards the left neural foramen. L4-5 shows some spinal stenosis, trefoil appearance of the thecal sac due to hy pertrophic changes of the facets causing posterior lateral mass effect on the thecal sac, circumferen tial posterior disc bulge causing anterior mass effect on the thecal sac. Broad-based posterior disc bulge also present L3-4, L2-3 and posterior extension endplate disc complex also noted L1-2. Abnormal signal in the posterior elements at L1-2 is consistent with tumor involving the right pedicle and tr ansverse process, posterior lateral mass effect on the thecal sac results in some moderate spinal pete nosis. Iliac bones also show abnormal signal consistent with tumor. IMPRESSION: Findings are consistent with metastatic disease. Degenerative disc disease and additional findings above.
[2019-08-14] MEDS: ASPIRIN 325 MG TAB PO SCH (09:39)
[2019-08-14] MEDS: ESCITALOPRAM 10 MG TAB PO SCH (09:39)
[2019-08-14 11:35] LABS: Glucose,Whole Blood 80 mg/dL (75-99)
[2019-08-14] MEDS ORDERED: ZOLEDRONIC ACID 4 MG in SODIUM CHLORIDE 0.9% 100 ML IV ONE (12:00)
[2019-08-14 12:25] LABS: HCT 36.6 % (34.0-46.0); HGB 12.3 gm/dL (11.4-16.0); MCH 30.8 pg (25.0-35.0); MCHC 33.5 g/dL (31.0-37.0); MCV 91.9 fL (80.0-100.0); Mean Platelet Volume 7.5; Platelet Count 229 k/uL (150-450); RBC 3.98 m/uL (3.80-5.40); RDW 14.9 % (11.5-15.5); WBC 9.4 k/uL (3.8-10.6)
[2019-08-14] MEDS: INSULIN ASPART (NovoLOG) 100 UNIT/ML VIAL SQ SCH ×2 (12:56→17:49)
[2019-08-14 13:33] LABS: Albumin 3.03 g/dL (3.80-4.90); Gamma Globulin 0.62 g/dL (0.70-1.50)
--- NOTE | 2019-08-14 14:00 | P.PN ---
Subjective Progress Note Date: 08/14/19 This is a pleasant 89-year-old female who presented with symptoms of diffuse achiness and discomfort. She has no prior cardiac history according to her but has a history of diabetes, hypertension and hyperlipidemia. She is limited in her physical activity and has some dyspnea on exertion. We were asked to see the patient in consultation for chest pain and anemia. Troponins were negative 3. Hemoglobin on admission was 7.8 with labs this morning showing a hemoglobin of 12.6 with no intervention, could be lab error. Echocardiogram showed an ejection fraction between 60-65% with no significant valvular abnormalities. Upon examination, patient denies complaints of chest discomfort. She just has an overall feeling of being uncomfortable. Oncology has been consulted for further evaluation for possible multiple myeloma. Objective - Vital Signs Vital signs: Vital Signs Temp 97.3 F L 08/14/19 08:00 Pulse 74 08/14/19 08:00 Resp 12 08/14/19 08:00 BP 159/81 08/14/19 08:00 Pulse Ox 92 L 08/14/19 08:00 Intake & Output 08/13/19 08/14/19 08/14/19 18:59 06:59 18:59 Intake Total 480 Output Total 300 100 Balance 180 -100 Weight 61.8 kg Intake: Oral 480 Output: Urine 300 100 Other: Voiding Method Toilet Toilet # Voids 1 1 # Bowel Movements 1 - Exam PHYSICAL EXAMINATION: HEENT: Head is atraumatic, normocephalic. Pupils equal, round. Neck is supple. There is no elevated jugular venous pressure. HEART EXAMINATION: Heart sounds regular, S1 and S2 with a systolic ejection murmur. CHEST EXAMINATION: Lungs are clear to auscultation and precussion. No chest wall tenderness is noted on palpation or with deep breathing. ABDOMEN: Soft, nontender. Bowel sounds are heard. No organomegaly noted. EXTREMITIES: 2+ peripheral pulses with no evidence of peripheral edema and no calf tenderness noted. NEUROLOGIC patient is awake, alert and oriented x3. . - Labs CBC & Chem 7: 08/14/19 11:41 08/14/19 05:58 Labs: Abnormal Lab Results - Last 24 Hours (Table) 08/13/19 08/13/19 08/13/19 Range/Units 05:58 05:58 05:58 Carbon Dioxide (22-30) mmol/L Glucose (74-99) mg/dL POC Glucose (mg/dL) (75-99) mg/dL Calcium (8.4-10.2) mg/dL Iron 32 L (50-170) ug/dL % Saturation 10.13 L (12.00-45.00) Total Protein (PEP) 6.1 L (6.2-8.2) g/dL CA 15-3 Antigen (0.0-32.3) U/mL Free [place] LC, Quant 2.00 H (0.33-1.94) mg/dL 08/13/19 08/13/19 08/13/19 Range/Units 05:58 16:48 20:13 Carbon Dioxide (22-30) mmol/L Glucose (74-99) mg/dL POC Glucose (mg/dL) 146 H 251 H (75-99) mg/dL Calcium (8.4-10.2) mg/dL Iron (50-170) ug/dL % Saturation (12.00-45.00) Total Protein (PEP) (6.2-8.2) g/dL CA 15-3 Antigen 99.3 H (0.0-32.3) U/mL Free [place] LC, Quant (0.33-1.94) mg/dL 08/14/19 08/14/19 08/14/19 Range/Units 05:58 06:19 06:32 Carbon Dioxide 31 H (22-30) mmol/L Glucose 51 L (74-99) mg/dL POC Glucose (mg/dL) 61 L 73 L (75-99) mg/dL Calcium 10.6 H (8.4-10.2) mg/dL Iron (50-170) ug/dL % Saturation (12.00-45.00) Total Protein (PEP) (6.2-8.2) g/dL CA 15-3 Antigen (0.0-32.3) U/mL Free [place] LC, Quant (0.33-1.94) mg/dL 08/14/19 Range/Units 08:27 Carbon Dioxide (22-30) mmol/L Glucose (74-99) mg/dL POC Glucose (mg/dL) 102 H (75-99) mg/dL Calcium (8.4-10.2) mg/dL Iron (50-170) ug/dL % Saturation (12.00-45.00) Total Protein (PEP) (6.2-8.2) g/dL CA 15-3 Antigen (0.0-32.3) U/mL Free [place] LC, Quant (0.33-1.94) mg/dL Assessment and Plan Assessment: #1 generalized achiness and weakness with multiple bone fractures, rule out malignancy or metastatic disease, possible multiple myeloma cannot be excluded #2 anemia with significant increase in hemoglobin since admission #3 chest discomfort, atypical for ischemic heart disease, troponins negative 3 and no evidence of cardiomyopathy or segmental wall motion abnormalities on echocardiogram #4 hypertension Plan: From cardiology's perspective, there is no evidence of active cardiac disease at this time. We will follow the patient on an as-needed basis. Please do not hesitate to contact us with questions. STEM SETTER note has been reviewed, I agree with a documented findings and plan of care. Patient was seen and examined.
[2019-08-14] MEDS ORDERED: IBUPROFEN 400 MG TAB PO PRN (14:40)
--- NOTE | 2019-08-14 14:43 | P.PN ---
Subjective Progress Note Date: 08/14/19 Principal diagnosis: Back pain Patient was sedated this am by ativan in order to have an MRI of the thoracic and lumbar spine. Her blood glucose was low this am at 61, came up with eating. No other overnight events. Objective - Vital Signs Vital signs: Vital Signs Temp 98.6 F 08/14/19 12:00 Pulse 75 08/14/19 12:00 Resp 14 08/14/19 12:00 BP 148/65 08/14/19 12:00 Pulse Ox 97 08/14/19 12:00 Intake & Output 08/13/19 08/14/19 08/14/19 18:59 06:59 18:59 Intake Total 480 Output Total 300 100 Balance 180 -100 Weight 61.8 kg Intake: Oral 480 Output: Urine 300 100 Other: Voiding Method Toilet Toilet # Voids 1 1 # Bowel Movements 1 - Labs CBC & Chem 7: 08/14/19 11:41 08/14/19 05:58 Labs: Abnormal Lab Results - Last 24 Hours (Table) 08/13/19 08/13/19 08/13/19 Range/Units 05:58 05:58 05:58 Carbon Dioxide (22-30) mmol/L Glucose (74-99) mg/dL POC Glucose (mg/dL) (75-99) mg/dL Calcium (8.4-10.2) mg/dL Albumin (PEP) 3.03 L (3.80-4.90) g/dL [id number] 0.45 H (0.10-0.40) g/dL Gamma Globulins 0.62 L (0.70-1.50) g/dL CA 15-3 Antigen (0.0-32.3) U/mL RBC Folate 862 H (280 - 791) ng/mL U Free [place] Ch (0.020-0.670) mg/dL Free [place] LC, Quant 2.00 H (0.33-1.94) mg/dL 08/13/19 08/13/19 08/13/19 Range/Units 05:58 16:48 20:13 Carbon Dioxide (22-30) mmol/L Glucose (74-99) mg/dL POC Glucose (mg/dL) 146 H 251 H (75-99) mg/dL Calcium (8.4-10.2) mg/dL Albumin (PEP) (3.80-4.90) g/dL [id number]-5-[id number] (0.10-0.40) g/dL Gamma Globulins (0.70-1.50) g/dL CA 15-3 Antigen 99.3 H (0.0-32.3) U/mL RBC Folate (280 - 791) ng/mL U Free Lambda Light Ch (0.020-0.670) mg/dL Free [place] LC, Quant (0.33-1.94) mg/dL 08/14/19 08/14/19 08/14/19 Range/Units 01:45 05:58 06:19 Carbon Dioxide 31 H (22-30) mmol/L Glucose 51 L (74-99) mg/dL POC Glucose (mg/dL) 61 L (75-99) mg/dL Calcium 10.6 H (8.4-10.2) mg/dL Albumin (PEP) (3.80-4.90) g/dL [id number]-[id number] (0.10-0.40) g/dL Gamma Globulins (0.70-1.50) g/dL CA 15-3 Antigen (0.0-32.3) U/mL RBC Folate (280 - 791) ng/mL U Free Lambda Light Ch 0.710 H (0.020-0.670) mg/dL Free [place] LC, Quant (0.33-1.94) mg/dL 08/14/19 08/14/19 Range/Units 06:32 08:27 Carbon Dioxide (22-30) mmol/L Glucose (74-99) mg/dL POC Glucose (mg/dL) 73 L 102 H (75-99) mg/dL Calcium (8.4-10.2) mg/dL Albumin (PEP) (3.80-4.90) g/dL Hzxji-2-Ggggcnnhm (0.10-0.40) g/dL Gamma Globulins (0.70-1.50) g/dL CA 15-3 Antigen (0.0-32.3) U/mL RBC Folate (280 - 791) ng/mL U Free [place] Ch (0.020-0.670) mg/dL Free [place] LC, Quant (0.33-1.94) mg/dL Assessment and Plan Plan: Diffuse pain with multiple fractures in setting of hypercalcemia, and acute kidney injury, suspicious for multiple myeloma vs. breast cancer recurrence with mets -Mild spike noted on PEP. -PTH normal, starting bisphosphonate, per oncology -Further management per oncology Chest pain, rule out ACS -Troponins were negative 3. -Echocardiogram showed an ejection fraction between 60-65% with no significant valvular abnormalities. Type 2 diabetes mellitus -Continue with insulin sliding scale with blood glucose monitoring -Decrease levemir to 20 units daily at bedtime due to hypoglycemia Chronic conditions: Hypertension, Hyperlipidemia All stable continue meds DVT prophylaxis -IPCDs CODE STATUS: No Code Discussed with: Patient Anticipated discharge date: 2-[address]: Home
[2019-08-14 15:29] LABS: Glucose,Whole Blood 79 mg/dL (75-99)
--- NOTE | 2019-08-14 16:32 | P.PN ---
Subjective Progress Note Date: 08/14/19 Principal diagnosis: Chest pain, anemia In f/u today pt had just returned from MRI, she was very sleepy, had to shake her and talk loudly to keep her awake. She denied any pain. Objective - Vital Signs Vital signs: Vital Signs Temp 98.6 F 08/14/19 12:00 Pulse 75 08/14/19 12:00 Resp 14 08/14/19 12:00 BP 148/65 08/14/19 12:00 Pulse Ox 97 08/14/19 12:00 Intake & Output 08/13/19 08/14/19 08/14/19 18:59 06:59 18:59 Intake Total 480 Output Total 300 100 Balance 180 -100 Weight 61.8 kg Intake: Oral 480 Output: Urine 300 100 Other: Voiding Method Toilet Toilet # Voids 1 1 # Bowel Movements 1 - Constitutional General appearance: Present: no acute distress, obese - EENT Eyes: Present: anicteric sclerae - Respiratory Details: resp even and unlabored - Cardiovascular Heart sounds: normal: S1, S2 - Gastrointestinal General gastrointestinal: Present: normal bowel sounds - Psychiatric Psychiatric Comment(s): very drowsy - Labs CBC & Chem 7: 08/14/19 11:41 08/14/19 05:58 Labs: Abnormal Lab Results - Last 24 Hours (Table) 08/13/19 08/13/19 08/13/19 Range/Units 05:58 05:58 05:58 Carbon Dioxide (22-30) mmol/L Glucose (74-99) mg/dL POC Glucose (mg/dL) (75-99) mg/dL Calcium (8.4-10.2) mg/dL Albumin (PEP) 3.03 L (3.80-4.90) g/dL Sxtjx-7-Ezcxpymeb 0.45 H (0.10-0.40) g/dL Gamma Globulins 0.62 L (0.70-1.50) g/dL CA 15-3 Antigen (0.0-32.3) U/mL RBC Folate 862 H (280 - 791) ng/mL U Free Lambda Light Ch (0.020-0.670) mg/dL Free [place] LC, Quant 2.00 H (0.33-1.94) mg/dL 08/13/19 08/13/19 08/13/19 Range/Units 05:58 16:48 20:13 Carbon Dioxide (22-30) mmol/L Glucose (74-99) mg/dL POC Glucose (mg/dL) 146 H 251 H (75-99) mg/dL Calcium (8.4-10.2) mg/dL Albumin (PEP) (3.80-4.90) g/dL Bgwqt-5-Vhhcpnrxn (0.10-0.40) g/dL Gamma Globulins (0.70-1.50) g/dL CA 15-3 Antigen 99.3 H (0.0-32.3) U/mL RBC Folate (280 - 791) ng/mL U Free Lambda Light Ch (0.020-0.670) mg/dL Free [place] LC, Quant (0.33-1.94) mg/dL 08/14/19 08/14/19 08/14/19 Range/Units 01:45 05:58 06:19 Carbon Dioxide 31 H (22-30) mmol/L Glucose 51 L (74-99) mg/dL POC Glucose (mg/dL) 61 L (75-99) mg/dL Calcium 10.6 H (8.4-10.2) mg/dL Albumin (PEP) (3.80-4.90) g/dL Uptpz-2-Jtrtydytr (0.10-0.40) g/dL Gamma Globulins (0.70-1.50) g/dL CA 15-3 Antigen (0.0-32.3) U/mL RBC Folate (280 - 791) ng/mL U Free Lambda Light Ch 0.710 H (0.020-0.670) mg/dL Free [place] LC, Quant (0.33-1.94) mg/dL 08/14/19 08/14/19 Range/Units 06:32 08:27 Carbon Dioxide (22-30) mmol/L Glucose (74-99) mg/dL POC Glucose (mg/dL) 73 L 102 H (75-99) mg/dL Calcium (8.4-10.2) mg/dL Albumin (PEP) (3.80-4.90) g/dL Ehhim-9-Qvwlcqgip (0.10-0.40) g/dL Gamma Globulins (0.70-1.50) g/dL CA 15-3 Antigen (0.0-32.3) U/mL RBC Folate (280 - 791) ng/mL U Free Lambda Light Ch (0.020-0.670) mg/dL Free [place] LC, Quant (0.33-1.94) mg/dL - Imaging and Cardiology T&L spine MRI report reviewed Assessment and Plan (1) Compression fracture Narrative/Plan: Compression fractures found on CT of the abdomen and pelvis and CT of the chest. Pt had x-ray of the T-spine and March of this year, the fractures are new since then. MRI of the thoracic and lumbar spine, pt had just returned from the scan when seen. Current Visit: Yes Status: Acute Priority: High Code(s): NEN5191 - SNOMED Code(s): 181377168 (2) Hypercalcemia Narrative/Plan: New-onset. 10.6 today, PTH normal, bisphosphonate ordered. Current Visit: Yes Status: Acute Priority: High Code(s): E83.52 - HYPERCALCEMIA SNOMED Code(s): 68820070 (3) Anemia Narrative/Plan: Pt was not anemic on todays CBC. Asked for redraw, Hgb is normal and stable. Lab test anomaly on admit is most likely cause Current Visit: Yes Status: Acute Priority: High Code(s): D64.9 - ANEMIA, UNSPECIFIED SNOMED Code(s): 754001945 (4) Breast cancer Narrative/Plan: History of, right breast 1988, left breast 1998, surgery and chemotherapy treatment. Ca 15.3 elevated at 99.3, pending Ca 27.29 Current Visit: No Status: Chronic Priority: Medium Code(s): C50.919 - MALIGNANT NEOPLASM OF UNSP SITE OF UNSPECIFIED FEMALE BREAST SNOMED Code(s): 010957742 Plan: Acute compression fractures, new onset anemia and hypercalcemia all very suspicious for multiple myeloma but, SPEP and immunofixation are negative for paraproteinemia. Mild elevation of K/L, not clinically significant. History of metastatic breast cancer, Ca15.3 was 99, pending Ca27.29. Metastatic breast cancer is the likely diagnosis. Need biopsy. Reviewed results of MRI T/L spine-resulted after pt seen. Transverse process mass. Have consulted Dr. Gaspar to biopsy. Will f/u in AM with pt and let her know the findings.
[2019-08-14 19:37] LABS: Glucose,Whole Blood 98 mg/dL (75-99)
[2019-08-14] MEDS: ATORVASTATIN 10 MG TAB PO SCH (20:29)
[2019-08-14 20:56] LABS: Glucose,Whole Blood 270 mg/dL (75-99)
[2019-08-14] MEDS ORDERED: ALLOPURINOL 300 MG TAB PO SCH (21:00)
[2019-08-14] MEDS ORDERED: INSULIN DETEMIR (LEVEMIR) 100 UNIT/ML SYR SQ SCH (21:00)
[2019-08-14] MEDS: traMADol 50 MG TAB PO PRN (21:58)
[2019-08-15 03:46] LABS: Glucose,Whole Blood 223 mg/dL (75-99)
[2019-08-15 07:03] LABS: Glucose,Whole Blood 136 mg/dL (75-99)
[2019-08-15 07:33] LABS: HCT 36.7 % (34.0-46.0); HGB 12.2 gm/dL (11.4-16.0); MCH 30.4 pg (25.0-35.0); MCHC 33.2 g/dL (31.0-37.0); MCV 91.6 fL (80.0-100.0); Mean Platelet Volume 7.2; Platelet Count 197 k/uL (150-450); RDW 14.8 % (11.5-15.5); WBC 8.3 k/uL (3.8-10.6)
[2019-08-15 07:36] LABS: African American GFR (CKD) >90 (>60 ml/min/1.73 sqM); Anion Gap 7 mmol/L; Blood Urea Nitrogen 16 mg/dL (7-17); Calcium 9.8 mg/dL (8.4-10.2); Carbon Dioxide 27 mmol/L (22-30); Chloride 98 mmol/L (98-107); Glucose 136 mg/dL (74-99); Magnesium 1.3 mg/dL (1.6-2.3); Non-African American GFR(CKD) 78 (>60 ml/min/1.73 sqM); Sodium 132 mmol/L (137-145)
[2019-08-15] MEDS ORDERED: NON FORMULARY DRUG (Aspirin Ec 325 MG) PO SCH (09:00)
[2019-08-15] MEDS ORDERED: LISINOPRIL 20 MG TAB PO SCH (09:00)
[2019-08-15] MEDS: MAGNESIUM SULFATE-D5W PMX 1 GM in DEXTROSE/WATER 1 100ML.BAG IVPB SCH ×2 (09:49→10:55)
[2019-08-15] MEDS: ASPIRIN 325 MG TAB PO SCH (09:49)
[2019-08-15] MEDS: amLODIPine 10 MG TAB PO SCH (09:50)
[2019-08-15] MEDS: INSULIN ASPART (NovoLOG) 100 UNIT/ML VIAL SQ SCH ×2 (09:50→12:55)
--- NOTE | 2019-08-15 10:19 | P.PN ---
Subjective Progress Note Date: 08/15/19 Principal diagnosis: Back pain Doing well, no complaints. Pain is better. She is more awake today. No fevers or chills. Objective - Vital Signs Vital signs: Vital Signs Temp 98.9 F 08/15/19 05:35 Pulse 76 08/15/19 05:35 Resp 16 08/15/19 05:35 BP 186/60 08/15/19 05:35 Pulse Ox 93 L 08/15/19 05:35 Intake & Output 08/14/19 08/15/19 08/15/19 18:59 06:59 18:59 Intake Total 240 600 Balance 240 600 Intake: Oral 240 600 Other: Voiding Method Toilet Toilet # Voids 2 3 - Exam Constitutional: No acute distress, conversant, pleasant Eyes:Anicteric sclerae, moist conjunctiva, no lid-lag, PERRLA, ENMT: Oropharynx clear, no erythema, exudates Neck: Supple, FROM, no masses, or JVD, No carotid bruits, No thyromegaly Lungs: Clear to auscultation, Clear to percussion, Normal respiratory effort, no accessory muscle use Cardiovascular: Heart regular in rate and rhythm, No murmurs, gallops, or rubs, No peripheral edema Abdominal: Soft, Nontender, no guarding, rebound or rigidity, Normoactive bowel sounds, No hepatomegaly, No splenomegaly, No palpable mass Skin: Normal temperature, tone, texture, turgor, no induration, No subcutaneous nodules, No rash, lesions, No ulcers Extremities: No digital cyanosis, No clubbing, Pedal pulses intact and symmetrical, Radial pulses intact and symmetrical, No calf tenderness Psychiatric: Alert and oriented to person, place and time, appropriate affect, intact judgement Neuro: Muscles Strength 5/5 in all 4 extremities, Sensation to light touch grossly present throughout, Cranial nerves II-XII grossly intact, no focal sensory deficits - Labs CBC & Chem 7: 08/15/19 06:35 08/15/19 06:35 Labs: Abnormal Lab Results - Last 24 Hours (Table) 08/13/19 08/13/19 08/13/19 Range/Units 05:58 05:58 05:58 Sodium (137-145) mmol/L Glucose (74-99) mg/dL POC Glucose (mg/dL) (75-99) mg/dL Magnesium (1.6-2.3) mg/dL Albumin (PEP) 3.03 L (3.80-4.90) g/dL Opvkh-7-Avpjmgsln 0.45 H (0.10-0.40) g/dL Gamma Globulins 0.62 L (0.70-1.50) g/dL CA 27-29 (0.0-38.5) U/mL Methylmalonic Acid 0.59 H (<0.40) umol/L RBC Folate 862 H (280 - 791) ng/mL U Free Lambda Light Ch (0.020-0.670) mg/dL 08/13/19 08/14/19 08/14/19 Range/Units 05:58 01:45 20:54 Sodium (137-145) mmol/L Glucose (74-99) mg/dL POC Glucose (mg/dL) 270 H (75-99) mg/dL Magnesium (1.6-2.3) mg/dL Albumin (PEP) (3.80-4.90) g/dL Oazgq-1-Ukacedekj (0.10-0.40) g/dL Gamma Globulins (0.70-1.50) g/dL CA 27-29 102.2 H (0.0-38.5) U/mL Methylmalonic Acid (<0.40) umol/L RBC Folate (280 - 791) ng/mL U Free Lambda Light Ch 0.710 H (0.020-0.670) mg/dL 08/15/19 08/15/19 08/15/19 Range/Units 02:06 06:35 07:01 Sodium 132 L (137-145) mmol/L Glucose 136 H (74-99) mg/dL POC Glucose (mg/dL) 223 H 136 H (75-99) mg/dL Magnesium 1.3 L (1.6-2.3) mg/dL Albumin (PEP) (3.80-4.90) g/dL Zihsc-9-Qypjbxyav (0.10-0.40) g/dL Gamma Globulins (0.70-1.50) g/dL CA 27-29 (0.0-38.5) U/mL Methylmalonic Acid (<0.40) umol/L RBC Folate (280 - 791) ng/mL U Free Lambda Light Ch (0.020-0.670) mg/dL Assessment and Plan Plan: Diffuse pain with multiple fractures and bone tumors in the spine and iliac bones in setting of hypercalcemia, and acute kidney injury, suspicious for multiple myeloma vs. breast cancer recurrence with mets -No monoclonal bands found on electrophoresis -Need bone tumors biopsy per oncology, consult Dr. Gaspar -PTH normal, started bisphosphonate, per oncology -Further management per oncology Chest pain, -ACS ruled out, troponins were negative 3. -Echocardiogram showed an ejection fraction between 60-65% with no significant valvular abnormalities. Type 2 diabetes mellitus -Continue with insulin sliding scale with blood glucose monitoring -Levemir to 20 units daily at bedtime due to hypoglycemia Hypomagnesemia Replace Follow in am Chronic conditions: Hypertension, Hyperlipidemia All stable continue meds DVT prophylaxis -IPCDs CODE STATUS: No Code Discussed with: Patient Anticipated discharge date: 2-[address]: Home
--- NOTE | 2019-08-15 10:20 | P.PN ---
Subjective Progress Note Date: 08/15/19 Principal diagnosis: Chest pain, anemia In f/u today pt was awake and oriented. She is able to ambulate with walker, feels she can care for herself, c/o constipation (narc induced), denies bladder or bowel incontinence, pain in the back is controlled with current analgesic reg imen, she wants to go home very badly. Objective - Vital Signs Vital signs: Vital Signs Temp 98.9 F 08/15/19 05:35 Pulse 76 08/15/19 05:35 Resp 16 08/15/19 05:35 BP 186/60 08/15/19 05:35 Pulse Ox 93 L 08/15/19 05:35 Intake & Output 08/14/19 08/15/19 08/15/19 18:59 06:59 18:59 Intake Total 240 600 Balance 240 600 Intake: Oral 240 600 Other: Voiding Method Toilet Toilet # Voids 2 3 - Constitutional General appearance: Present: average body habitus, cooperative, no acute distress - EENT Eyes: Present: anicteric sclerae, EOMI ENT: Present: hearing grossly normal - Respiratory Details: resp even and unlabored - Cardiovascular Details: skin warm and dry to touch - Integumentary Integumentary: Present: normal - Neurologic Neurologic: Present: CNII-XII intact - Musculoskeletal Musculoskeletal Comment(s): BLE 4/5 Musculoskeletal: Present: generalized weakness, strength equal bilaterally - Psychiatric Psychiatric: Present: A&O x's 3, appropriate affect, intact judgment & insight - Labs CBC & Chem 7: 08/15/19 06:35 08/15/19 06:35 Labs: Abnormal Lab Results - Last 24 Hours (Table) 08/13/19 08/13/19 08/13/19 Range/Units 05:58 05:58 05:58 Sodium (137-145) mmol/L Glucose (74-99) mg/dL POC Glucose (mg/dL) (75-99) mg/dL Magnesium (1.6-2.3) mg/dL Albumin (PEP) 3.03 L (3.80-4.90) g/dL Hkrnp-9-Dkdriclap 0.45 H (0.10-0.40) g/dL Gamma Globulins 0.62 L (0.70-1.50) g/dL CA 27-29 (0.0-38.5) U/mL Methylmalonic Acid 0.59 H (<0.40) umol/L RBC Folate 862 H (280 - 791) ng/mL U Free Lambda Light Ch (0.020-0.670) mg/dL 08/13/19 08/14/19 08/14/19 Range/Units 05:58 01:45 20:54 Sodium (137-145) mmol/L Glucose (74-99) mg/dL POC Glucose (mg/dL) 270 H (75-99) mg/dL Magnesium (1.6-2.3) mg/dL Albumin (PEP) (3.80-4.90) g/dL Sqpmt-1-Uizwuizla (0.10-0.40) g/dL Gamma Globulins (0.70-1.50) g/dL CA 27-29 102.2 H (0.0-38.5) U/mL Methylmalonic Acid (<0.40) umol/L RBC Folate (280 - 791) ng/mL U Free Lambda Light Ch 0.710 H (0.020-0.670) mg/dL 08/15/19 08/15/19 08/15/19 Range/Units 02:06 06:35 07:01 Sodium 132 L (137-145) mmol/L Glucose 136 H (74-99) mg/dL POC Glucose (mg/dL) 223 H 136 H (75-99) mg/dL Magnesium 1.3 L (1.6-2.3) mg/dL Albumin (PEP) (3.80-4.90) g/dL Jdxse-1-Sqnqnnmyb (0.10-0.40) g/dL Gamma Globulins (0.70-1.50) g/dL CA 27-29 (0.0-38.5) U/mL Methylmalonic Acid (<0.40) umol/L RBC Folate (280 - 791) ng/mL U Free Lambda Light Ch (0.020-0.670) mg/dL - Imaging and Cardiology MRI T/L spine reports reviewed Assessment and Plan (1) Compression fracture Narrative/Plan: Compression fractures found on CT of the abdomen and pelvis and CT of the chest. Pt had x-ray of the T-spine and March of this year, the fractures are new since then. MRI of the thoracic and lumbar spine, reveals an area at L1-2 on the right second be a target for biopsy. Dr. Adams and Dr. Gaspar discussed the case. Plan is for biopsy Patient is extraordinarily anxious to get home. She was offered a biopsy tomorrow but is asking if she can go home and come back. If patient is discharged the next available biopsy is Monday. Patient understands that delaying the biopsy also delays the diagnosis and treatment. She understands the same. She states that she does have a way to get back to the hospital for biopsy. Dr. Gaspar is going to provide the patient with a brace and biopsy will be scheduled for Monday. We'll plan a follow-up with oncology late next week or early the following week to review the results of the biopsy and discuss a treatment plan. Patient did verbalize understanding all of the above. Current Visit: Yes Status: Acute Priority: High Code(s): ZLF2215 - SNOMED Code(s): 987458198 (2) Hypercalcemia Narrative/Plan: Secondary to disease in the bones. Calcium 9.6 today status post 1 dose of Zometa. Current Visit: Yes Status: Acute Priority: High Code(s): E83.52 - HYPERCALCEMIA SNOMED Code(s): 77611420 (3) Anemia Narrative/Plan: Lab test anomaly on admit. Patient is not anemic. Current Visit: No Status: Acute Priority: Low Code(s): D64.9 - ANEMIA, UNSPECIFIED SNOMED Code(s): 814836588 (4) Breast cancer Narrative/Plan: History of, right breast 1988, left breast 1998, surgery and chemotherapy treatment. Ca 15.3 elevated at 99.3, CA 27.29 102.2. Discussed with the patient the negative workup for myeloma, most of the evidence at this time is pointing towards metastatic breast cancer to bone. Explained to patient that we do need a biopsy to confirm (see above). And is for biopsy of a right lumbar mass on Monday with Orthopedic Spine. Explained to her that once we have the pathology returned and biomarker results we can discuss a plan of action. Current Visit: No Status: Chronic Priority: Medium Code(s): C50.919 - MALIGNANT NEOPLASM OF UNSP SITE OF UNSPECIFIED FEMALE BREAST SNOMED Code(s): 346405926 Plan: Doctor attests: I performed a history and physical examination of this patient, developed impression and plan of care. Discussed with dictator. I agree with dictators note, documented as a scribe.
--- NOTE | 2019-08-15 10:37 | P.CNOR ---
History of Present Illness - HPI Consult date: 08/15/19 Consult reason: back pain, other (Spinal metastasis with back pain and T11 compression fracture) History of present illness: patient is a very pleasant 89-year-old female who is admitted to the hospital for further workup of her back pain. She seen and examined today at bedside. She says she has had back pain since March of this year. She is feels like it has been worsening over time. The pain is primarily across her mid and lower back. She gets some numbness and tingling down her legs but her primary issue is the pain. She denies any fevers or chills. She denies any cough. She denies any specific injury. She admits to history of multiple myeloma. She also missed a history of breast cancer more than 30 years ago. She was not aware of any specific spread of the breast cancer. She denies any changes in bowel bladder function. She denies any weakness in her lower extremities. She says she is still able to get up and around and get around the house and drive. She says has some trouble getting in and out of bed because of the pain at her back. Review of Systems as stated per HPI. Denies any fevers chills. Denies any acute weight loss. Denies any significant history of back pain prior to March of this year. Past Medical History Past Medical History: Cancer, Diabetes Mellitus, Hyperlipidemia, Hypertension Additional Past Medical History / Comment(s): Breast cancer received chemo , sk in cancer, arthritis. History of Any Multi-Drug Resistant Organisms: None Reported Past Surgical History: Appendectomy, Hysterectomy Additional Past Surgical History / Comment(s): bilateral mastectomy Past Anesthesia/Blood Transfusion Reactions: No Reported Reaction Past Psychological History: Anxiety Smoking Status: Never smoker Past Alcohol Use History: None Reported Additional Past Alcohol Use History / Comment(s): Use to drink 25 years ago. Does not drink anymore. Past Drug Use History: None Reported - Past Family History Father History Unknown: Yes Mother History Unknown: Yes Medications and Allergies Home Medications Medication Instructions Recorded Confirmed Type Allopurinol [Zyloprim] 300 mg PO HS 07/13/18 08/12/19 History Insulin Lispro Protamin/Lispro 35 unit SQ AC-SUPPER 07/13/18 08/13/19 History [humaLOG Mix 75-25 Kwikpen] Insulin Lispro Protamin/Lispro 48 unit SQ AC-BRKFST 07/13/18 08/13/19 History [humaLOG Mix 75-25 Kwikpen] Lisinopril [Zestril] 20 mg PO DAILY 07/13/18 08/12/19 History Simvastatin [Zocor] 20 mg PO HS 07/13/18 08/12/19 History amLODIPine [Norvasc] 5 mg PO DAILY 07/13/18 08/12/19 History Ibuprofen [Motrin] 400 mg PO Q8HR PRN 7 Days #21 tab 03/19/19 08/12/19 Rx Vitamin B Complex 1 cap PO DAILY 03/19/19 08/12/19 History Aspirin EC [Ecotrin] 325 mg PO DAILY 08/12/19 08/12/19 History Escitalopram Oxalate [Lexapro] 10 mg PO DAILY 08/12/19 08/12/19 History traMADol HCL [Ultram] 50 mg PO TID 08/12/19 08/12/19 History Allergies Allergy/AdvReac Type Severity Reaction Status Date / Time sulfamethoxazole AdvReac Unknown Verified 03/19/19 12:38 [From Bactrim] trimethoprim [From Bactrim] AdvReac Unknown Verified 03/19/19 12:38 Physical Examination Osteopathic Statement: *. No significant issues noted on an osteopathic structural exam other than those noted in the History and Physical/Consult. - L Spine: dermatomal strength & reflexes bilateral Strength: hip flexion: 5/5 (at her back there is no open wounds lacerations or abrasions. She is nontender to palpation over the midline. She localizes her pain toward her flanks bilaterally stemming from the midline. Her abdomen soft nontender she has good excursion with deep inspiration and expiration of her chest. Her lower extremities have sustained dorsal flexion plantarflexion and extensor hallucis longus with 5 out of 5 muscle strength. She has no calf ten derness. Her thighs and calf soft.) Results - Labs Labs: Abnormal Lab Results - Last 24 Hours (Table) 08/13/19 08/13/19 08/13/19 Range/Units 05:58 05:58 05:58 Sodium (137-145) mmol/L Glucose (74-99) mg/dL POC Glucose (mg/dL) (75-99) mg/dL Magnesium (1.6-2.3) mg/dL Albumin (PEP) 3.03 L (3.80-4.90) g/dL Qzaja-0-Xlpqfdxvm 0.45 H (0.10-0.40) g/dL Gamma Globulins 0.62 L (0.70-1.50) g/dL CA 27-29 (0.0-38.5) U/mL Methylmalonic Acid 0.59 H (<0.40) umol/L RBC Folate 862 H (280 - 791) ng/mL U Free Lambda Light Ch (0.020-0.670) mg/dL 08/13/19 08/14/19 08/14/19 Range/Units 05:58 01:45 20:54 Sodium (137-145) mmol/L Glucose (74-99) mg/dL POC Glucose (mg/dL) 270 H (75-99) mg/dL Magnesium (1.6-2.3) mg/dL Albumin (PEP) (3.80-4.90) g/dL Fxvzj-0-Jincemrra (0.10-0.40) g/dL Gamma Globulins (0.70-1.50) g/dL CA 27-29 102.2 H (0.0-38.5) U/mL Methylmalonic Acid (<0.40) umol/L RBC Folate (280 - 791) ng/mL U Free Lambda Light Ch 0.710 H (0.020-0.670) mg/dL 08/15/19 08/15/19 08/15/19 Range/Units 02:06 06:35 07:01 Sodium 132 L (137-145) mmol/L Glucose 136 H (74-99) mg/dL POC Glucose (mg/dL) 223 H 136 H (75-99) mg/dL Magnesium 1.3 L (1.6-2.3) mg/dL Albumin (PEP) (3.80-4.90) g/dL Yzldo-8-Uyifobcwn (0.10-0.40) g/dL Gamma Globulins (0.70-1.50) g/dL CA 27-29 (0.0-38.5) U/mL Methylmalonic Acid (<0.40) umol/L RBC Folate (280 - 791) ng/mL U Free Lambda Light Ch (0.020-0.670) mg/dL H & H 08/12/19 08/14/19 08/14/19 Range/Units 18:30 05:58 11:41 Hgb 7.8 L 12.6 D 12.3 (11.4-16.0) gm/dL Hct 24.4 L 37.6 36.6 (34.0-46.0) % 08/15/19 Range/Units 06:35 Hgb 12.2 (11.4-16.0) gm/dL Hct 36.7 (34.0-46.0) % Coagulation 08/12/19 Range/Units 18:30 INR 1.0 (<1.2) Result Diagrams: 08/15/19 06:35 08/15/19 06:35 - Diagnostic results CT Scan - lumbar: report reviewed, image reviewed (thoracic and lumbar MRI reviewed. It shows multiple diffuse lesions throughout her thoracic and lumbar spine. There is evidence of compression deformity at T11. 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 She has multiple bony metastasis throughout her thoracic and lumbar spine. She does have some degenerative changes at her lower lumbar spine with stenosis as well. Her pain seems primarily to extend from her mid back where there is evidence of compression deformity at T11 with signal change and mass at that space. It seems likely that she has a pathologic fracture at T11 which may be the source of her worsening symptoms. I think the patient can have some relief of her symptoms with bracing and we will order a TLSO brace for her. She can use this whenever she is out of bed but then does not need to use it while she is in bed or bathing. I discussed the case with hematology oncology. It is uncertain as the 6 L-type for the mass findings in her thoracic and lumbar spine. They like to obtain biopsy of the area. I think that is reasonable given her symptoms and pain and we can perform a biopsy with kyphoplasty at T11. This may allow for diagnostic reasons as well as therapeutic management for the compression deformity at T11. The patient feels that she is moving well today and would like to try to go home prior to having her procedure. We had a lengthy discussion with her at bedside with hematology oncology service and myself and we can plan on the procedure this upcoming Monday and then she can continue with treatment at that point. She would much prefer to go home prior to her procedure which will be done in the next few days. I think that is reasonable for her and we will go ahead and plan for her to be discharged from a spine standpoint to follow up on Monday for her surgical procedure of biopsy of T11 with kyphoplasty. We'll start making those arrangements. We have put an order for a TLSO brace for her as well. We answered her questions best my ability In a language that she can understand she is agreeable. Time with Patient: Greater than 30
[2019-08-15] MEDS: ESCITALOPRAM 10 MG TAB PO SCH (10:55)
[2019-08-15 10:57] LABS: Glucose,Whole Blood 226 mg/dL (75-99)
[2019-08-15 11:47] VITALS: BP 173/68; PULSE 90; RESP 20; TEMP 98.7
--- NOTE | 2019-08-15 12:21 | P.DS ---
Providers Date of admission: 08/14/19 07:37 Expected date of discharge: 08/15/19 Attending physician: Kurtis Moore MD Consults: 08/12/19 22:38 Consult Physician Urgent Consulting Provider: Lj Dobson Consult Reason/Comments: chest pain, anemia Do you want consulting provider notified?: Yes 08/13/19 05:51 Consult Physician Urgent Consulting Provider: Adrian Adams Consult Reason/Comments: suspected mm Do you want consulting provider notified?: Yes 08/14/19 16:20 Consult Physician Routine Consulting Provider: Maame Gaspar Consult Reason/Comments: biopsy of L1-L2 mass Do you want consulting provider notified?: Yes, Notify in am Primary care physician: [facility] Course: 89-year-old female with a PMH of history of breast cancer status post bilateral mastectomy (second mastectomy 10 years ago), type II DM, hypertension, and hyperlipidemia presented to the ED with complaints of diffuse bone and joint pain. The patient notes that she has been suffering from diffuse pain for about 5-6 months now. The patient notes that her diffuse pain however gradually worsened to the point where it was a 10 out of 10 at which point she decided to come to the emergency room. Pain is located in multiple parts of body including ankles, forearms, upper back, arms, hips, and legs. The patient denied any falls or trauma. The patient also noted that she has had intermittent substernal chest discomfort for the past few days, sharp to pressure-like in nature, with no clear alleviating or exacerbating features, 7 out of 10 in intensity, and nonradiating. She denied associated shortness of breath, nausea, vomiting, palpitations, or dizziness. She also denied cough, fever, or chills. She underwent an extensive evaluation in the emergency room with chest x-ray s howing bilateral multiple healing rib fractures with a healing right scapular fracture. Thoracic spine x-ray revealed numerous osteoporotic type compression fractures. Head/cervical spine CT revealed minor degenerative disc changes of the cervical spine with no fractures. Chest and Abdominal CT revealed interstitial infiltrates and atelectasis at the lung bases with compression fractures of the spine at multiple levels with metastatic disease not excluded. EKG revealed revealed a normal sinus rhythm with sinus arrhythmia 73 bpm. Laboratory evaluation revealed a WBC count of 18.5, hemoglobin 7.8, platelets 338, sodium 135, potassium 4.1, BUN 19, creatinine 1.09, calcium 11.6, troponin less than 0.012, and FOBT negative. During the admission she was worked up for the diffuse pain. She was seen by cardiology, trops were cycled and ACS was ruled out. She was seen by cardiology as well. Echo was done no valvular abnormalities were found, EF was ok. 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 She was seen by oncology who ordered SPEP, UPEP, PTH, all came back normal. Tumor markers for breast cancer were elevated. She was also seen by ortho who advised a brace for the back as well as outpatient biopsy. She will be seen again by ortho on monday. She was cleared by oncology for discharge. Time for discharge 35 min Patient Condition at Discharge: Serious Plan - Discharge Summary New Discharge Prescriptions: Continue Simvastatin [Zocor] 20 mg PO HS amLODIPine [Norvasc] 5 mg PO DAILY Lisinopril [Zestril] 20 mg PO DAILY Allopurinol [Zyloprim] 300 mg PO HS Insulin Lispro Protamin/Lispro [humaLOG Mix 75-25 Kwikpen] 48 unit SQ AC- BRKFST Insulin Lispro Protamin/Lispro [humaLOG Mix 75-25 Kwikpen] 35 unit SQ AC- SUPPER Vitamin B Complex 1 cap PO DAILY Ibuprofen [Motrin] 400 mg PO Q8HR PRN 7 Days #21 tab PRN Reason: Muscle Pain Escitalopram Oxalate [Lexapro] 10 mg PO DAILY Aspirin EC [Ecotrin] 325 mg PO DAILY traMADol HCL [Ultram] 50 mg PO TID Discharge Medication List Allopurinol [Zyloprim] 300 mg PO HS 07/13/18 [History] Insulin Lispro Protamin/Lispro [humaLOG Mix 75-25 Kwikpen] 35 unit SQ AC-SUPPER 07/13/18 [History] Insulin Lispro Protamin/Lispro [humaLOG Mix 75-25 Kwikpen] 48 unit SQ AC-BRKFST 07/13/18 [History] Lisinopril [Zestril] 20 mg PO DAILY 07/13/18 [History] Simvastatin [Zocor] 20 mg PO HS 07/13/18 [History] amLODIPine [Norvasc] 5 mg PO DAILY 07/13/18 [History] Ibuprofen [Motrin] 400 mg PO Q8HR PRN 7 Days #21 tab 03/19/19 [Rx] Vitamin B Complex 1 cap PO DAILY 03/19/19 [History] Aspirin EC [Ecotrin] 325 mg PO DAILY 08/12/19 [History] Escitalopram Oxalate [Lexapro] 10 mg PO DAILY 08/12/19 [History] traMADol HCL [Ultram] 50 mg PO TID 08/12/19 [History] Follow up Appointment(s)/Referral(s): Zachariah Quintanilla MD [Primary Care Provider] - 1-2 days Maame Gaspar DO [Doctor of Osteopathic Medicine] - 08/19/19 7:00 am (Follow-up and at [facility] for surgical procedure with Dr. Gaspar on MondayAugust 18) Activity/Diet/Wound Care/Special Instructions: follow-up MondayAugust 18 at [facility] for surgery with Dr. Gaspar Nothing to eat or drink after midnight Monday night for surgery on Monday Nothing by mouth after midnight Monday night for surgery on Monday Patient will be contacted by the hospital for specific arrival times. She will likely need to arrive around 7 AM for her procedure for Monday. Surgery is planned for outpatient surgery and she will likely be able to go home Monday as well. Patient should use her TLSO brace for mobilization. She should wear the brace whenever she is out of bed or elevated greater than 45. She may remove it in bed and while bathing.
== END 2019-08-15 17:37 | disposition home health service (06) | DRG 543 ==
LOC: EC 16:06 → INTOOBSV 23:56 → 3SCARD 23:56 → OBSVTOIN 08-14 07:37 → 5NMEDONC 08-14 21:19
PROVIDERS: ADMIT Internal Medicine; ATTEND Internal Medicine
DX: C79.51 Secondary malignant neoplasm of bone (principal); N17.9 Acute kidney failure, unspecified; M84.58XA Pathological fracture in neoplastic disease, other specified site, initial encounter for fracture; Z11.59 Encounter for screening for other viral diseases; E83.52 Hypercalcemia; E11.649 Type 2 diabetes mellitus with hypoglycemia without coma; Z79.4 Long term (current) use of insulin; Z66 Do not resuscitate; I10 Essential (primary) hypertension; E78.5 Hyperlipidemia, unspecified; F41.9 Anxiety disorder, unspecified; M19.90 Unspecified osteoarthritis, unspecified site; D72.829 Elevated white blood cell count, unspecified; M50.321 Other cervical disc degeneration at C4-C5 level; R06.09 Other forms of dyspnea; S22.43XD Multiple fractures of ribs, bilateral, subsequent encounter for fracture with routine healing; S42.101D Fracture of unspecified part of scapula, right shoulder, subsequent encounter for fracture with routine healing; R53.1 Weakness; R63.4 Abnormal weight loss; M48.061 Spinal stenosis, lumbar region without neurogenic claudication; G89.3 Neoplasm related pain (acute) (chronic); D63.0 Anemia in neoplastic disease; E83.42 Hypomagnesemia; K59.03 Drug induced constipation; T40.2X5A Adverse effect of other opioids, initial encounter; W19.XXXD Unspecified fall, subsequent encounter; Z68.24 Body mass index [BMI] 24.0-24.9, adult; Z79.82 Long term (current) use of aspirin; Z79.899 Other long term (current) drug therapy; Z85.828 Personal history of other malignant neoplasm of skin; Z85.3 Personal history of malignant neoplasm of breast; Z90.710 Acquired absence of both cervix and uterus; Z90.49 Acquired absence of other specified parts of digestive tract; Z90.13 Acquired absence of bilateral breasts and nipples; Z92.21 Personal history of antineoplastic chemotherapy; Z88.2 Allergy status to sulfonamides
CPT/HCPCS: 36415; 70450; 71046; 71275; 72072; 72125; 72157; 72158; 74177; 80048; 80053; 80061; 81001; 82272; 82607; 82728; 82747; 83540; 83550; 83735; 83880; 83883; 83921; 83970; 84100; 84165; 84484; 85025; 85027; 85379; 85610; 85730; 86300; 86334; 93005; 93306; 96361; 96374; 99285

== ENCOUNTER 2019-08-18 14:37 | Inpatient (IN) | payer MEDICARE, BC ==
[2019-08-18] MEDS ORDERED: Acetaminophen-Codeine 300-30mg TAB PO STA (15:28)
--- NOTE | 2019-08-18 15:36 | ED ---
Back Pain HPI - General Source: EMS Limitations: no limitations <Aristeo Villalta - Last Filed: 08/18/19 18:23> <Jocelyn Dietz - Last Filed: 08/26/19 13:29> - General Chief Complaint: Back Pain/Injury Stated Complaint: Back pain Time Seen by Provider: 08/18/19 14:47 - History of Present Illness Initial Comments: Patient is an 89-year-old female with history of chronic back pain, breast cancer, diabetes presenting to the emergency department the chief complaint of back pain. Patient states she was discharged from the hospital 3 days ago and is scheduled to have a bone biopsy tomorrow. Patient states she was advised to stay in the inpatient but she decided to go home instead in order to see her daughter help her . Patient reports she has been doing quite a bit of work around the house to help her , who cannot ambulate. States now the pain has returned. Reports polyarthralgias in the shoulders elbows hands knees and hips. States mostly the pain is located in the lumbar region. States she has been wearing a back brace since discharge. States she takes Tylenol and tramadol at home with no significant improvement in symptoms. Denies any saddle anesthesia, urinary or bowel incontinence. States she has not been able to move around much over the last day. States the pain is10/10. (Aristeo Villalta) - Related Data Home Medications Medication Instructions Recorded Confirmed Allopurinol [Zyloprim] 300 mg PO HS 07/13/18 08/18/19 Lisinopril [Zestril] 20 mg PO DAILY 07/13/18 08/18/19 Simvastatin [Zocor] 20 mg PO HS 07/13/18 08/18/19 amLODIPine [Norvasc] 5 mg PO DAILY 07/13/18 08/18/19 Vitamin B Complex 1 cap PO DAILY 03/19/19 08/18/19 Escitalopram Oxalate [Lexapro] 10 mg PO DAILY 08/12/19 08/18/19 Previous Rx's Medication Instructions Recorded Calcium Carbonate/Vitamin D3 2 each PO HS #60 tablet 08/20/19 [Calcium 500-Vit D3 200 Tablet] Ibuprofen [Motrin] 400 mg PO Q6HR #30 tab 08/22/19 Insuln Asp Prt/Insulin Aspart 25 unit SQ AC-BRKFST vial 08/22/19 [NovoLOG MIX 70-30 VIAL] Insuln Asp Prt/Insulin Aspart 25 unit SQ AC-SUPPER vial 08/22/19 [NovoLOG MIX 70-30 VIAL] Pantoprazole [Protonix] 40 mg PO AC-BRKFST #30 tablet. 08/22/19 oxyCODONE-APAP 7.5-325MG [Percocet 1 each PO Q4HR PRN #38 tab 08/22/19 7.5-325 mg] predniSONE 0 mg PO DIRECTED #30 tab 08/22/19 Allergies Allergy/AdvReac Type Severity Reaction Status Date / Time sulfamethoxazole AdvReac Unknown Verified 08/19/19 08:34 [From Bactrim] trimethoprim [From Bactrim] AdvReac Unknown Verified 08/19/19 08:34 Review of Systems ROS Other: All systems not noted in ROS Statement are negative. <Aristeo Villalta - Last Filed: 08/18/19 18:23> ROS Other: All systems not noted in ROS Statement are negative. <Jocelyn Dietz - Last Filed: 08/26/19 13:29> ROS Statement: Those systems with pertinent positive or pertinent negative responses have been documented in the HPI. Past Medical History Past Medical History: Cancer, Diabetes Mellitus, Hyperlipidemia, Hypertension Additional Past Medical History / Comment(s): Breast cancer received chemo , skin cancer, arthritis. History of Any Multi-Drug Resistant Organisms: None Reported Past Surgical History: Appendectomy, Hysterectomy Additional Past Surgical History / Comment(s): bilateral mastectomy Past Anesthesia/Blood Transfusion Reactions: No Reported Reaction Past Psychological History: Anxiety Smoking Status: Never smoker Past Alcohol Use History: None Reported Past Drug Use History: None Reported - Past Family History Father History Unknown: Yes Mother History Unknown: Yes <Aristeo Villalta - Last Filed: 08/18/19 18:23> General Exam Limitations: no limitations General appearance: alert, in no apparent distress Head exam: Present: atraumatic, normocephalic, normal inspection Eye exam: Present: normal appearance, PERRL, EOMI Pupils: Present: normal accommodation ENT exam: Present: normal exam, normal oropharynx, mucous membranes moist Neck exam: Present: normal inspection, full ROM. Absent: tenderness Respiratory exam: Present: normal lung sounds bilaterally Cardiovascular Exam: Present: regular rate, normal rhythm, normal heart sounds Extremities exam: Present: normal inspection, full ROM Back exam: Present: normal inspection, full ROM, tenderness, paraspinal tenderness (Lumbar), vertebral tenderness (Amar) Neurological exam: Present: alert, oriented X3 Psychiatric exam: Present: normal affect, normal mood Skin exam: Present: warm, dry, intact, normal color <Aristeo Villalta - Last Filed: 08/18/19 18:23> Course Vital Signs 08/18/19 08/18/19 08/18/19 14:40 15:00 15:30 Temperature 98.3 F Pulse Rate 98 95 93 Respiratory 18 17 17 Rate Blood Pressure 151/68 151/68 166/88 O2 Sat by Pulse 98 94 L 94 L Oximetry 08/18/19 08/18/19 08/18/19 16:00 16:30 17:00 Temperature Pulse Rate 95 90 93 Respiratory 17 17 17 Rate Blood Pressure 142/77 131/57 145/72 O2 Sat by Pulse 97 94 L 95 Oximetry 08/18/19 08/18/19 08/18/19 17:30 18:00 18:51 Temperature 97.9 F Pulse Rate 96 94 89 Respiratory 17 17 18 Rate Blood Pressure 146/70 136/56 124/90 O2 Sat by Pulse 96 96 95 Oximetry Medical Decision Making - Lab Data Result diagrams: 08/18/19 15:45 08/18/19 15:45 <Aristeo Villalta - Last Filed: 08/18/19 18:23> - Lab Data Result diagrams: 08/22/19 05:48 08/22/19 05:48 <Jocelyn Dietz - Last Filed: 08/26/19 13:29> - Medical Decision Making Patient is 89-year-old female presenting to emergency Department with a chief complaint of back pain. Patient is scheduled to have a lumbar biopsy tomorrow by . Patient was given Tylenol 3 in the ED. She reports the symptoms have greatly improved. States she otherwise feels comfortable. Denies any other symptoms. Recent MRI reveals suspected metastatic disease consistent with multiple myeloma. Patient will be admitted. Nothing by mouth after midnight. Case discussed with Admitting physician is Dr. Reddy. Consult Dr. dean (Aristeo Villalta) I was available for consultation in the emergency department. The history and physical exam were done by the midlevel provider. I was consulted for this patients care. I reviewed the case with the midlevel provider and based on their presentation of the patient, I agree with the assessment, medical decision making and plan of care as documented. I spoke with the admitting hospitalist who accepted admission. Chart was dictated using Endgame dictation software. Attempts were made to correct any dictation errors however some typographical errors may persist. Patient was seen during a national state of emergency due to the Covid-19 pandemic. (Jocelyn Dietz) - Lab Data Lab Results 08/18/19 08/18/19 08/18/19 Range/Units 15:45 15:45 21:17 WBC 11.6 H (3.8-10.6) k/uL RBC 4.40 (3.80-5.40) m/uL Hgb 12.5 (11.4-16.0) gm/dL Hct 39.5 (34.0-46.0) % MCV 89.8 (80.0-100.0) fL MCH 28.4 (25.0-35.0) pg MCHC 31.6 (31.0-37.0) g/dL RDW 15.0 (11.5-15.5) % Plt Count 220 (150-450) k/uL Neutrophils % 79 % Lymphocytes % 14 % Monocytes % 5 % Eosinophils % 1 % Basophils % 1 % Neutrophils # 9.2 H (1.3-7.7) k/uL Lymphocytes # 1.6 (1.0-4.8) k/uL Monocytes # 0.5 (0-1.0) k/uL Eosinophils # 0.1 (0-0.7) k/uL Basophils # 0.1 (0-0.2) k/uL Sodium 130 L (137-145) mmol/L Potassium 4.4 (3.5-5.1) mmol/L Chloride 99 (98-107) mmol/L Carbon Dioxide 21 L (22-30) mmol/L Anion Gap 10 mmol/L BUN 27 H (7-17) mg/dL Creatinine 0.87 (0.52-1.04) mg/dL Est GFR (CKD-EPI)AfAm 69 (>60 ml/min/1.73 sqM) Est GFR (CKD-EPI)NonAf 60 (>60 ml/min/1.73 sqM) Glucose 79 (74-99) mg/dL POC Glucose (mg/dL) (75-99) mg/dL POC Glu Dynamo Repairer ID Calcium 8.1 L (8.4-10.2) mg/dL Magnesium (1.6-2.3) mg/dL Total Bilirubin 0.6 (0.2-1.3) mg/dL AST 74 H (14-36) U/L ALT 15 (4-34) U/L Alkaline Phosphatase 144 H (38-126) U/L Total Protein 6.6 (6.3-8.2) g/dL Albumin 3.5 (3.5-5.0) g/dL Coronavirus (PCR) Not Detected (Not Detected) 08/18/19 08/19/19 08/19/19 Range/Units 22:56 05:38 05:38 WBC 9.3 (3.8-10.6) k/uL RBC 4.01 (3.80-5.40) m/uL Hgb 11.6 (11.4-16.0) gm/dL Hct 36.4 (34.0-46.0) % MCV 90.9 (80.0-100.0) fL MCH 28.9 (25.0-35.0) pg MCHC 31.8 (31.0-37.0) g/dL RDW 14.8 (11.5-15.5) % Plt Count 201 (150-450) k/uL Neutrophils % 74 % Lymphocytes % 17 % Monocytes % 6 % Eosinophils % 1 % Basophils % 0 % Neutrophils # 6.9 (1.3-7.7) k/uL Lymphocytes # 1.6 (1.0-4.8) k/uL Monocytes # 0.5 (0-1.0) k/uL Eosinophils # 0.1 (0-0.7) k/uL Basophils # 0.0 (0-0.2) k/uL Sodium 131 L (137-145) mmol/L Potassium 3.4 L (3.5-5.1) mmol/L Chloride 101 (98-107) mmol/L Carbon Dioxide 25 (22-30) mmol/L Anion Gap 5 mmol/L BUN 19 H (7-17) mg/dL Creatinine 0.69 (0.52-1.04) mg/dL Est GFR (CKD-EPI)AfAm >90 (>60 ml/min/1.73 sqM) Est GFR (CKD-EPI)NonAf 78 (>60 ml/min/1.73 sqM) Glucose 83 (74-99) mg/dL POC Glucose (mg/dL) 153 H (75-99) mg/dL POC Glu Dynamo Repairer ID Juani Wiseman Calcium 7.6 L (8.4-10.2) mg/dL Magnesium (1.6-2.3) mg/dL Total Bilirubin 0.5 (0.2-1.3) mg/dL AST 50 H (14-36) U/L ALT 13 (4-34) U/L Alkaline Phosphatase 136 H (38-126) U/L Total Protein 6.0 L (6.3-8.2) g/dL Albumin 3.1 L (3.5-5.0) g/dL Coronavirus (PCR) (Not Detected) 08/19/19 08/19/19 08/19/19 Range/Units 05:38 06:19 11:23 WBC (3.8-10.6) k/uL RBC (3.80-5.40) m/uL Hgb (11.4-16.0) gm/dL Hct (34.0-46.0) % MCV (80.0-100.0) fL MCH (25.0-35.0) pg MCHC (31.0-37.0) g/dL RDW (11.5-15.5) % Plt Count (150-450) k/uL Neutrophils % % Lymphocytes % % Monocytes % % Eosinophils % % Basophils % % Neutrophils # (1.3-7.7) k/uL Lymphocytes # (1.0-4.8) k/uL Monocytes # (0-1.0) k/uL Eosinophils # (0-0.7) k/uL Basophils # (0-0.2) k/uL Sodium (137-145) mmol/L Potassium (3.5-5.1) mmol/L Chloride (98-107) mmol/L Carbon Dioxide (22-30) mmol/L Anion Gap mmol/L BUN (7-17) mg/dL Creatinine (0.52-1.04) mg/dL Est GFR (CKD-EPI)AfAm (>60 ml/min/1.73 sqM) Est GFR (CKD-EPI)NonAf (>60 ml/min/1.73 sqM) Glucose (74-99) mg/dL POC Glucose (mg/dL) 76 87 (75-99) mg/dL POC Glu Dynamo Repairer ID Juani Wiseman, Rafaela Calcium (8.4-10.2) mg/dL Magnesium 1.9 (1.6-2.3) mg/dL Total Bilirubin (0.2-1.3) mg/dL AST (14-36) U/L ALT (4-34) U/L Alkaline Phosphatase (38-126) U/L Total Protein (6.3-8.2) g/dL Albumin (3.5-5.0) g/dL Coronavirus (PCR) (Not Detected) 08/19/19 Range/Units 12:08 WBC (3.8-10.6) k/uL RBC (3.80-5.40) m/uL Hgb (11.4-16.0) gm/dL Hct (34.0-46.0) % MCV (80.0-100.0) fL MCH (25.0-35.0) pg MCHC (31.0-37.0) g/dL RDW (11.5-15.5) % Plt Count (150-450) k/uL Neutrophils % % Lymphocytes % % Monocytes % % Eosinophils % % Basophils % % Neutrophils # (1.3-7.7) k/uL Lymphocytes # (1.0-4.8) k/uL Monocytes # (0-1.0) k/uL Eosinophils # (0-0.7) k/uL Basophils # (0-0.2) k/uL Sodium (137-145) mmol/L Potassium (3.5-5.1) mmol/L Chloride (98-107) mmol/L Carbon Dioxide (22-30) mmol/L Anion Gap mmol/L BUN (7-17) mg/dL Creatinine (0.52-1.04) mg/dL Est GFR (CKD-EPI)AfAm (>60 ml/min/1.73 sqM) Est GFR (CKD-EPI)NonAf (>60 ml/min/1.73 sqM) Glucose (74-99) mg/dL POC Glucose (mg/dL) 100 H (75-99) mg/dL POC Glu Dynamo Repairer ID Nereida Kerns Calcium (8.4-10.2) mg/dL Magnesium (1.6-2.3) mg/dL Total Bilirubin (0.2-1.3) mg/dL AST (14-36) U/L ALT (4-34) U/L Alkaline Phosphatase (38-126) U/L Total Protein (6.3-8.2) g/dL Albumin (3.5-5.0) g/dL Coronavirus (PCR) (Not Detected) Disposition Is patient prescribed a controlled substance at d/c from ED?: No Time of Disposition: 18:25 <Aristeo Villalta - Last Filed: 08/18/19 18:23> <Jocelyn Dietz - Last Filed: 08/26/19 13:29> Clinical Impression: Lumbar back pain Disposition: ADMITTED IP TO THIS HOSP Condition: Stable
[2019-08-18 16:00] LABS: Basophils # (A) 0.1 k/uL (0-0.2); Basophils % (A) 1 %; Eosinophils # (A) 0.1 k/uL (0-0.7); Eosinophils % (A) 1 %; HCT 39.5 % (34.0-46.0); HGB 12.5 gm/dL (11.4-16.0); Lymphocytes # (A) 1.6 k/uL (1.0-4.8); Lymphocytes % (A) 14 %; MCH 28.4 pg (25.0-35.0); MCHC 31.6 g/dL (31.0-37.0); MCV 89.8 fL (80.0-100.0); Monocytes # (A) 0.5 k/uL (0-1.0); Monocytes % (A) 5 %; Neutrophils # (A) 9.2 k/uL (1.3-7.7); Neutrophils % (A) 79 %; Platelet Count 220 k/uL (150-450); WBC 11.6 k/uL (3.8-10.6)
[2019-08-18 16:33] LABS: Albumin 3.5 g/dL (3.5-5.0); Calcium 8.1 mg/dL (8.4-10.2); Total Bilirubin 0.6 mg/dL (0.2-1.3); Total Protein 6.6 g/dL (6.3-8.2)
[2019-08-18 16:34] LABS: Potassium 4.4 mmol/L (3.5-5.1)
[2019-08-18] MEDS ORDERED: MORPHINE SULFATE 4 MG/ML SYRINGE IV PRN (18:19)
[2019-08-18] MEDS ORDERED: NALOXONE 0.4 MG/ML 1 ML VIAL IV PRN (18:19)
[2019-08-18] MEDS ORDERED: LORazepam 2 MG/ML INJ IV PRN (18:19)
[2019-08-18] MEDS: SODIUM CHLORIDE 0.9% 1,000 ML IV SCH (18:44)
--- NOTE | 2019-08-18 18:52 | P.HPIM ---
History of Present Illness H&P Date: 08/18/19 Chief Complaint: Back pain Patient is an 89-year-old female with a PMH of history of breast cancer status post bilateral mastectomy (second mastectomy 10 years ago), multiple myeloma, type II DM, hypertension, and hyperlipidemia presented to the ED with complaints of diffuse bone and joint pain. She was previously admitted on 08/13/2019 for intractable back pain. Thoracic spine x-ray revealed numerous osteoporotic type compression fractures. Chest and Abdominal CT revealed interstitial infiltrates and atelectasis and pleural getting at the lung bases with compression fractures of the spine at multiple levels with metastatic disease not excluded. She underwent MRI with findings that were consistent with metastatic disease. Orthopedic surgery at that time recommended biopsy of a lesion seen in T11. Oncology was also following the patient at that time. Patient was adamant about wanting to be discharged home in order to be able to take care of her . She was discharged with close follow-up with orthopedic surgery this Monday for her biopsy. She returns to the hospital for intractable pain after physical exertion from taking care of her . Patient currently reports back pain that is 10 out of 10 in severity. Pain is nonradiating and sharp in nature. Pain is aggravated with movement. She denies any bladder or bowel incontinence. She denies any saddle anesthesia. Patient reports a decreased appetite. She denies any headache, lower extremity edema, nausea or vomiting, fever or chills, cough, chest pain, palpitations, dizziness, numbness/weakness/tingling of the extremities. In the ED, her vital signs were stable with an elevated pulse of 95 and blood pressure of 142/77. CBC showed leukocytosis of 11.6. CMP showed sodium of 130, bicarbonate 21, BUN of 27, AST of 74 and alkaline phosphatase of 144. Patient is admitted for intractable back pain with orthopedic surgery and oncology consulted. Review of Systems Pertinent positives and negatives as discussed in HPI, a complete review of systems was performed and all other systems are negative. Past Medical History Past Medical History: Cancer, Diabetes Mellitus, Hyperlipidemia, Hypertension Additional Past Medical History / Comment(s): Breast cancer received chemo , skin cancer, arthritis. History of Any Multi-Drug Resistant Organisms: None Reported Past Surgical History: Appendectomy, Hysterectomy Additional Past Surgical History / Comment(s): bilateral mastectomy Past Anesthesia/Blood Transfusion Reactions: No Reported Reaction Past Psychological History: Anxiety Smoking Status: Never smoker Past Alcohol Use History: None Reported Past Drug Use History: None Reported - Past Family History Father History Unknown: Yes Mother History Unknown: Yes Medications and Allergies Home Medications Medication Instructions Recorded Confirmed Type Allopurinol [Zyloprim] 300 mg PO HS 07/13/18 08/12/19 History Insulin Lispro Protamin/Lispro 35 unit SQ AC-SUPPER 07/13/18 08/13/19 History [humaLOG Mix 75-25 Kwikpen] Insulin Lispro Protamin/Lispro 48 unit SQ AC-BRKFST 07/13/18 08/13/19 History [humaLOG Mix 75-25 Kwikpen] Lisinopril [Zestril] 20 mg PO DAILY 07/13/18 08/12/19 History Simvastatin [Zocor] 20 mg PO HS 07/13/18 08/12/19 History amLODIPine [Norvasc] 5 mg PO DAILY 07/13/18 08/12/19 History Ibuprofen [Motrin] 400 mg PO Q8HR PRN 7 Days #21 tab 03/19/19 08/12/19 Rx Vitamin B Complex 1 cap PO DAILY 03/19/19 08/12/19 History Aspirin EC [Ecotrin] 325 mg PO DAILY 08/12/19 08/12/19 History Escitalopram Oxalate [Lexapro] 10 mg PO DAILY 08/12/19 08/12/19 History traMADol HCL [Ultram] 50 mg PO TID 08/12/19 08/12/19 History Allergies Allergy/AdvReac Type Severity Reaction Status Date / Time sulfamethoxazole AdvReac Unknown Verified 03/19/19 12:38 [From Bactrim] trimethoprim [From Bactrim] AdvReac Unknown Verified 03/19/19 12:38 Physical Exam Vitals: Vital Signs Temp Pulse Resp BP Pulse Ox 08/18/19 18:00 94 17 136/56 96 08/18/19 17:30 96 17 146/70 96 08/18/19 17:00 93 17 145/72 95 08/18/19 16:30 90 17 131/57 94 L 08/18/19 16:00 95 17 142/77 97 08/18/19 15:30 93 17 166/88 94 L 08/18/19 15:00 95 17 151/68 94 L 08/18/19 14:40 98.3 F 98 18 151/68 98 Intake and Output 08/18/19 08/18/19 08/18/19 06:59 14:59 22:59 Other: Weight 62.596 kg General: [non toxic], [no distress], [appears at stated age] Derm: [warm], [dry] Head: [atraumatic], [normocephalic], [symmetric] Eyes: [EOMI], [no lid lag], [anicteric sclera] Mouth: [no lip lesion], [mucus membranes moist] Cardiovascular: [S1S2 reg], [tachycardic], [positive DP pulse bilateral], Lungs: [CTA bilateral], [no rhonchi, no rales] , [no accessory muscle use] Abdominal: [soft], [ nontender to palpation], [no guarding], [no appreciable organomegaly] Ext: [no gross muscle atrophy], [no edema], [no contractures], [tenderness with palpation midline spine at the T10 level], [SLR negative bilaterally] Neuro: [ CN II-XI grossly intact], [no focal neuro deficits] Psych: [Alert], [oriented], [appropriate affect] Results CBC & Chem 7: 08/18/19 15:45 08/18/19 15:45 Labs: Abnormal Lab Results - Last 24 Hours (Table) 08/18/19 08/18/19 Range/Units 15:45 15:45 WBC 11.6 H (3.8-10.6) k/uL Neutrophils # 9.2 H (1.3-7.7) k/uL Sodium 130 L (137-145) mmol/L Carbon Dioxide 21 L (22-30) mmol/L BUN 27 H (7-17) mg/dL Calcium 8.1 L (8.4-10.2) mg/dL AST 74 H (14-36) U/L Alkaline Phosphatase 144 H (38-126) U/L Assessment and Plan Assessment: Acute back pain 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 She does have a history of multiple myeloma and breast cancer. She was scheduled for outpatient biopsy of T11 lesion. Orthopedic surgery will be consulted for this biopsy and she will be placed nothing by mouth after midnight. PT and OT will be consulted to work with the patient during this admission. She will be placed on Fall precautions. Oncology will be consulted as they were following the patient during her previous admission. Her pain will be controlled with T3, oxycodone or morphine as needed. Her leukocytosis is likely reactive and she shows no signs of infection. We will repeat CBC tomorrow morning. Her hyponatremia and prerenal azotemia is likely related to dehydration. She'll be started on normal saline at 75 mL per hour. Her elevated AST is of unknown significance which will be monitored at this time and CMP is ordered for tomorrow morning. We will restart amlodipine and lisinopril for her history of hypertension. Insulin sliding scale will be started for her history of diabetes along with regular Accu-Cheks and hypoglycemic precautions. Lipitor will be restarted for her dyslipidemia. DVT prophylaxis: [SCD] Discussed with: [patient] Anticipated discharge: [1-2 days] Anticipated discharge place: [home] A total of [45] minutes was spent on the care of this complex patient more than 50% of the time was spent in counseling and care coordination. Patient names her [id number] [employer] decision maker if she can't make decisions for herself. Patient would like to be no code.
[2019-08-18] MEDS: ATORVASTATIN 10 MG TAB PO SCH (20:46)
[2019-08-18] MEDS: ALLOPURINOL 300 MG TAB PO SCH (21:06)
[2019-08-18 22:58] LABS: Glucose,Whole Blood 153 mg/dL (75-99)
[2019-08-19] MEDS: Acetaminophen-Codeine 300-30mg TAB PO PRN ×4 (00:42→21:06)
[2019-08-19 05:57] LABS: Basophils % (A) 0 %; Eosinophils # (A) 0.1 k/uL (0-0.7); Eosinophils % (A) 1 %; HCT 36.4 % (34.0-46.0); HGB 11.6 gm/dL (11.4-16.0); Lymphocytes # (A) 1.6 k/uL (1.0-4.8); Lymphocytes % (A) 17 %; MCH 28.9 pg (25.0-35.0); MCHC 31.8 g/dL (31.0-37.0); MCV 90.9 fL (80.0-100.0); Mean Platelet Volume 6.9; Monocytes # (A) 0.5 k/uL (0-1.0); Monocytes % (A) 6 %; Neutrophils # (A) 6.9 k/uL (1.3-7.7); Neutrophils % (A) 74 %; Platelet Count 201 k/uL (150-450); RBC 4.01 m/uL (3.80-5.40); RDW 14.8 % (11.5-15.5); WBC 9.3 k/uL (3.8-10.6)
[2019-08-19 06:13] LABS: ALT 13 U/L (4-34); AST 50 U/L (14-36); African American GFR (CKD) >90 (>60 ml/min/1.73 sqM); Albumin 3.1 g/dL (3.5-5.0); Alkaline Phosphatase 136 U/L (38-126); Anion Gap 5 mmol/L; Blood Urea Nitrogen 19 mg/dL (7-17); Calcium 7.6 mg/dL (8.4-10.2); Carbon Dioxide 25 mmol/L (22-30); Chloride 101 mmol/L (98-107); Glucose 83 mg/dL (74-99); Non-African American GFR(CKD) 78 (>60 ml/min/1.73 sqM); Potassium 3.4 mmol/L (3.5-5.1); Sodium 131 mmol/L (137-145); Total Bilirubin 0.5 mg/dL (0.2-1.3)
[2019-08-19 06:21] LABS: Glucose,Whole Blood 76 mg/dL (75-99)
[2019-08-19] MEDS: INSULIN ASPART (NovoLOG) 100 UNIT/ML VIAL SQ SCH ×3 (07:36→17:37)
[2019-08-19] MEDS: amLODIPine 5 MG TAB PO SCH (07:46)
[2019-08-19] MEDS: LISINOPRIL 20 MG TAB PO SCH (07:46)
[2019-08-19] MEDS: ESCITALOPRAM 10 MG TAB PO SCH (07:46)
[2019-08-19] MEDS ORDERED: IV FLUID CONTINUATION 1,000 ML IV ONE (08:26)
[2019-08-19] MEDS ORDERED: ONDANSETRON 4 MG/2 ML VIAL IVP ONE (08:47)
[2019-08-19] MEDS ORDERED: Potassium Replacement Protocol 1 EACH MISC MISCELLANE PRN (08:48)
[2019-08-19] MEDS ORDERED: LIDOCAINE 1% INJ 10MG/ML (20 ML MDV) ONE (09:52)
[2019-08-19] MEDS ORDERED: fentaNYL (PF) 50 MCG/ML 2 ML AMP ONE (09:52)
[2019-08-19] MEDS ORDERED: ePHEDrine SULFATE/0.9% NACL/PF 50 MG/5 ML SYRINGE IV ONE (09:52)
[2019-08-19] MEDS ORDERED: SUCCINYLCHOLINE CHLORIDE 100 MG/5 ML SYR IV ONE (09:52)
[2019-08-19] MEDS ORDERED: PROPOFOL 10 MG/ML 20 ML VIAL IV ONE (09:52)
[2019-08-19] MEDS ORDERED: IOPAMIDOL M200 10 ML VIAL MISCELLANE ONE (09:55)
[2019-08-19] MEDS ORDERED: LIDOCAINE 0.5%-EPI 1:200,000 50 ML VIAL SQ ONE (09:55)
[2019-08-19] MEDS ORDERED: ceFAZolin 1,000 MG VIAL IVPB ONE ×2 (10:29→10:33)
[2019-08-19 10:44] VITALS: BMI 25.2
[2019-08-19] MEDS ORDERED: BENZOCAINE/MENTHOL LOZENG 1 EACH LOZENGE MUCOUS MEM PRN (11:09)
[2019-08-19] MEDS ORDERED: HYDROcodone/APAP 5-325MG 1 EACH TAB PO PRN (11:09)
[2019-08-19] MEDS ORDERED: SODIUM CHLORIDE 0.9% 1,000 ML IV ONE (11:11)
[2019-08-19] MEDS ORDERED: SODIUM CHLORIDE 0.9% 1,000 ML IV SCH (11:15)
--- NOTE | 2019-08-19 11:17 | P.OP ---
Date of Procedure: 08/19/19 Preoperative Diagnosis: T11 pathologic compression fracture, multiple thoracolumbar spinal lesions, thoracic lumbar back pain, history of breast cancer Postoperative Diagnosis: Same Anesthesia: GETA Pathology: other (T11 vertebral body biopsy sent to pathology) Condition: stable Disposition: PACU Description of Procedure: BRIEF OPERATIVE NOTE Preoperative Diagnosis: T11 pathologic compression fracture, multiple thoracolumbar spinal lesions, thoracic lumbar back pain, history of breast cancer Postoperative Diagnosis: Same Procedure: Kyphoplasty of T11 Vertebral body biopsy of T11 Use of biplanar fluoroscopic guidance Surgeon: Dr. Gaspar Slab Grinder: Lowell Moraes is present throughout the entire the case persistence during positioning, dissection, exposure, visualization, and all crucial elements of the case as well as closure. Anesthesia: General anesthesia Estimated blood loss: Less than 10 mL Specimen: Vertebral body biopsy of T11 sent to pathology in formalin Complications: None apparent Components implanted: Bone cement approximately 4-1/2 mL Disposition: To recovery room in good stable condition. OPERATIVE INDICATIONS The patient has been having issues in their back with pain extending over her flank more to the right and left. She denies any specific injury or trauma. She says it just came about all of a sudden. She does have history of breast cancer. She was initially admitted and we are asked to consult on her regard to her back pain and obtaining possible biopsy at her spine. She is found have multiple areas of lesions through her thoracic and lumbar spine on MRI. The patient had undergone treatment for breast cancer more than 30 years ago. We discussed the possibly of conservative treatment. In discussing the case with oncology service they felt the need to obtain tissue biopsy from the vertebral body. The patient was having significant pain and had evidence of compression deformity at T11 which was likely pathologic compression fracture. They continue to have significant pain and debility due to their fracture. We discussed various treatment options including surgery, and the patient wishes to proceed with surgery we planned for T11 vertebral body biopsy with kyphoplasty. We discussed the risk, patient's alternatives and benefits of surgery including but not limited to, risk of bleeding risk of infection, risk of need for further surgery, risk of decreased, loss of motion, loss of function, cement extravasation, nerve damage, paralysis, heart attack, blindness and . Patient does have a DO NOT RESUSCITATE order on him we discussed that issue in terms of being in the operating room and immediate postoperative period. The patient understood. OPERATIVE SUMMARY After discussing all the risks, patient alternatives and benefits at length, the patient elected to proceed with surgical intervention, signed informed consent, and presented for their procedure. The patient was seen and examined in the preoperative holding area and the surgical site was marked. The patient was given antibiotics and brought to the operating room. The patient was sedated and intubated by anesthesia in standard fashion. The patient was positioned on to the operating room table in a prone position on the appropriate well-padded and well molded bilateral chest rolls. We were careful to pad any bony prominences and pressure points. We were careful to maintain the patient's cervical spine and good neutral alignment and position throughout. We used 2 C-arm machines to establish biplanar fluoroscopic guidance in AP and lateral positions. We were able to localize the fractures appropriately. The patient was prepped and draped in a normal standard fashion. An appropriate timeout and keystone protocol performed. We were able to proceed with the surgery. The local wound area was infiltrated with local anesthetic. An incision was made over the lateral aspect of the pedicle of T11 over the appropriate levels with a small 2 mm stab incision. Intraoperative fluoroscopy was taken which showed a marker at the appropriate level. With the appropriate level positively confirmed, I was able to position a sharp trocar over the lateral aspect of the pedicle on the right of T11. As able to advance the trocar into the pedicle and into the posterior aspect of vertebral body being careful to avoid penetration cephalad caudad or medially. The trocar was placed appropriately into the posterior aspect of vertebral body at the appropriate levels. This was confirmed with C-arm guidance. With the trocar intact I was then able to take a bone biopsy with a biopsy punch or a bony drill. The biopsy specimen was passed off to be sent to pathology in formalin. I was then able to place the kyphoplasty balloon within the vertebral body. The position was checked on C-arm. I was able to inflate the balloon under low pressure and visualization with C-arm. The balloon was well enclosed within the vertebral body. The cement was prepared. With the cement at appropriate working condition the balloons were deflated and removed. I was able to place bony cement with trocar with the cement delivery device under low pressure to approximate 40 half cc. It had good fill within the vertebral body. There is no evidence of any extravasation of the cement posteriorly toward the canal. The cement was well contained at the appropriate levels. The cement was allowed to cure appropriately. The trochars removed and final images were taken on C- arm. This showed the cement at the appropriate levels of T11. We were able to proceed with closure. The wound was cleaned and dried and dressed with the appropriate dressing. The drapes were broken down. The patient was gently rolled back onto their hospital bed being careful to maintain their cervical spine and good neutral alignment and position. They were woken up by anesthesia, extubated, and brought to the recovery room in good stable condition. The patient will be admitted to the hospital for observation and for appropriate postoperative care, medical management and monitoring. We will continue to follow them closely about the postoperative course.
[2019-08-19 11:24] LABS: Glucose,Whole Blood 87 mg/dL (75-99)
[2019-08-19] MEDS ORDERED: HYDROmorphone 1 MG/ML 1 ML SYRINGE IVP ONE ×2 (11:38→11:45)
[2019-08-19 12:10] LABS: Glucose,Whole Blood 100 mg/dL (75-99)
[2019-08-19] MEDS: POTASSIUM CHLORIDE ER 20 MEQ TAB.ER PO SCH ×3 (12:23→15:55)
--- NOTE | 2019-08-19 12:50 | FL ---
EXAMINATION TYPE: FL guidance operating room, XR lumbar spine 2 or 3V DATE OF EXAM: 08/19/2019 CLINICAL HISTORY: Compression fracture. Back pain. TECHNIQUE: Fluoroscopy. 2 intraoperative lateral views of the thoracolumbar spine. COMPARISON: MRI of thoracic and lumbar spine August 14, 2019. FINDINGS: Fluoroscopic guidance was provided during kyphoplasty procedure performed by back surgeon. A total of 60 seconds of fluoroscopic time was utilized during the procedure and two spot intraoper ative images are acquired. Intraoperative images acquired show cement material injection at the site of mild to moderate alva jesse type fracture T11 level. Alignment is stable. IMPRESSION: As Above.
--- NOTE | 2019-08-19 13:03 | P.PN ---
Subjective Progress Note Date: 08/19/19 Principal diagnosis: back pain patient was seen and examined. No acute events overnight. Seen after kyphoplasty of T11, vertebral body biopsy of T11. Patient reports no complaints at this time. Does not complain of back pain as she is laying still. She denies any chest pain, shortness of breath or palpitations. No nausea or vomiting. No fever or chills. Objective - Vital Signs Vital signs: Vital Signs Temp 97.7 F 08/19/19 12:10 Pulse 68 08/19/19 12:25 Resp 14 08/19/19 12:25 BP 112/51 08/19/19 12:25 Pulse Ox 90 L 08/19/19 12:25 Intake & Output 08/18/19 08/19/19 08/19/19 18:59 06:59 18:59 Intake Total 1000 Output Total 5 Balance 995 Weight 62.596 kg 62.596 kg 62.596 kg Intake: IV 1000 Output: Estimated Blood Loss 5 Other: Voiding Method Toilet Toilet # Voids 1 1 - Exam General: [non toxic], [no distress], [appears at stated age] Derm: [warm], [dry] Head: [atraumatic], [normocephalic], [symmetric] Eyes: [EOMI], [no lid lag], [anicteric sclera] Mouth: [no lip lesion], [mucus membranes moist] Cardiovascular: [S1S2 reg], [no murmur], [positive DP pulse bilateral], Lungs: [CTA bilateral], [no rhonchi, no rales] , [no accessory muscle use] Abdominal: [soft], [ nontender to palpation], [no guarding], [no appreciable organomegaly] Ext: [no gross muscle atrophy], [no edema], [no contractures], [tenderness with palpation midline spine at the T10 level with dressing applied clean dry and intact], [SLR negative bilaterally] Neuro: [no focal neuro deficits] Psych: [Alert], [oriented], [appropriate affect] - Labs CBC & Chem 7: 08/19/19 05:38 08/19/19 05:38 Labs: Abnormal Lab Results - Last 24 Hours (Table) 08/18/19 08/18/19 08/18/19 Range/Units 15:45 15:45 22:56 WBC 11.6 H (3.8-10.6) k/uL Neutrophils # 9.2 H (1.3-7.7) k/uL Sodium 130 L (137-145) mmol/L Potassium (3.5-5.1) mmol/L Carbon Dioxide 21 L (22-30) mmol/L BUN 27 H (7-17) mg/dL POC Glucose (mg/dL) 153 H (75-99) mg/dL Calcium 8.1 L (8.4-10.2) mg/dL AST 74 H (14-36) U/L Alkaline Phosphatase 144 H (38-126) U/L Total Protein (6.3-8.2) g/dL Albumin (3.5-5.0) g/dL 08/19/19 08/19/19 Range/Units 05:38 12:08 WBC (3.8-10.6) k/uL Neutrophils # (1.3-7.7) k/uL Sodium 131 L (137-145) mmol/L Potassium 3.4 L (3.5-5.1) mmol/L Carbon Dioxide (22-30) mmol/L BUN 19 H (7-17) mg/dL POC Glucose (mg/dL) 100 H (75-99) mg/dL Calcium 7.6 L (8.4-10.2) mg/dL AST 50 H (14-36) U/L Alkaline Phosphatase 136 H (38-126) U/L Total Protein 6.0 L (6.3-8.2) g/dL Albumin 3.1 L (3.5-5.0) g/dL Assessment and Plan Assessment: Acute back pain 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 She does have a history of multiple myeloma and breast cancer. She was scheduled for outpatient biopsy of T11 lesion. PT and OT will be consulted to work with the patient during this admission. She is POD 0 T11 kyphoplasty and biopsy. 2 doses of cefazolin tonight. She will be placed on Fall precautions. Her pain will be controlled with T3, oxycodone or morphine as needed. Her hyponatremia and prerenal azotemia is likely related to dehydration. She'll be started on normal saline at 75 mL per hour. Her potassium of 3.4 will be replaced via protocol. BMP will be rechecked tomorrow morning. Her elevated AST is of unknown significance which will be monitored at this time and CMP is ordered for tomorrow morning. Oncology will be consulted as they were following the patient during her previous admission. We will restart amlodipine and lisinopril for her history of hypertension. Insulin sliding scale will be started for her history of diabetes along with regular Accu-Cheks and hypoglycemic precautions. Lipitor will be restarted for her dyslipidemia. [Patient admitted for intractable back pain. She is POD 0T 11 kyphoplasty and biopsy. PT consulted to work with the patient. Oncology consult pending. She is pending clinical improvement. Likely DC in 1-2 days.]
--- NOTE | 2019-08-19 15:01 | P.CONS ---
History of Present Illness - Reason for Consult Consult date: 08/18/19 metastatic disease bone, Hx: Breast Cancer Requesting physician: Thad Agrawal - Chief Complaint Pain - History of Present Illness Mrs. Peoples is a very pleasant 89-year-old female who is in overall good health with only a few chronic medical conditions all of which are well- controlled. She states that in March she started having increased generalized bone pain, she has been worked up and treated for arthritis, over the past 6 months though, back pain has increase, associated with 15 pound weight loss, decreased appetite, denied fevers, night sweats, nausea, difficulty swallowing, vomiting, respiratory changes, new or unusual cough, changes in her chest wall (bilateral mastectomies), acute changes in bowel or bladder habits, numbness or tingling in the lower extremities, she does have some generalized weakness but, denies that this is extreme. she has a history of right breast cancer in 1988, treated with chemo and surgery, left breast cancer in 1998 treated with surgery and chemo, both treated by Dr. Persaud,she does not remember if she took an AI. There is also question of history of Multiple Myeloma although this has not been confirmed and patient was worked up for multiple myeloma at last weeks visit and this was negative. She was recently admitted last week for pain in back on 08/13/19. Thoracic spine x-ray revealed numerous osteoporotic type compression fractures. Chest and Abdominal CT revealed interstitial infiltrates and atelectasis and pleural getting at the lung bases with compression fractures of the spine at multiple levels with metastatic disease not excluded. She underwent MRI with findings that were consistent with metastatic disease. Orthopedic surgery at that time recommended biopsy of a lesion seen in T11. Oncology was also following the patient at that time. Patient was adamant about wanting to be discharged home in order to be able to take care of her . She was discharged with close follow-up with orthopedic surgery this Monday for her biopsy. She returns to the hospital for intractable pain after physical exertion from taking care of her . Patient currently reports back pain that is 10 out of 10 in severity. Pain is becoming constant and sharp in nature. non-radiating Pain worse with movement. She denies any bladder or bowel changes. She has had recent weight loss and decreased appetite. She is now Status post intervention with ortho spine. Review of Systems A 14 point review of systems assessed and completed and all negative except HPI Past Medical History Past Medical History: Cancer, Diabetes Mellitus, Hyperlipidemia, Hypertension Additional Past Medical History / Comment(s): Breast cancer received chemo , skin cancer, arthritis. History of Any Multi-Drug Resistant Organisms: None Reported Past Surgical History: Appendectomy, Hysterectomy Additional Past Surgical History / Comment(s): bilateral mastectomy Past Anesthesia/Blood Transfusion Reactions: No Reported Reaction Past Psychological History: Anxiety Smoking Status: Never smoker Past Alcohol Use History: None Reported Additional Past Alcohol Use History / Comment(s): Use to drink 25 years ago. Does not drink anymore. Past Drug Use History: None Reported - Past Family History Father History Unknown: Yes Mother History Unknown: Yes Medications and Allergies Home Medications Medication Instructions Recorded Confirmed Type Allopurinol [Zyloprim] 300 mg PO HS 07/13/18 08/18/19 History Insulin Lispro Protamin/Lispro 35 unit SQ AC-SUPPER 07/13/18 08/18/19 History [humaLOG Mix 75-25 Kwikpen] Insulin Lispro Protamin/Lispro 48 unit SQ AC-BRKFST 07/13/18 08/18/19 History [humaLOG Mix 75-25 Kwikpen] Lisinopril [Zestril] 20 mg PO DAILY 07/13/18 08/18/19 History Simvastatin [Zocor] 20 mg PO HS 07/13/18 08/18/19 History amLODIPine [Norvasc] 5 mg PO DAILY 07/13/18 08/18/19 History Ibuprofen [Motrin] 400 mg PO Q8HR PRN 7 Days #21 tab 03/19/19 08/18/19 Rx Vitamin B Complex 1 cap PO DAILY 03/19/19 08/18/19 History Aspirin EC [Ecotrin] 325 mg PO DAILY 08/12/19 08/18/19 History Escitalopram Oxalate [Lexapro] 10 mg PO DAILY 08/12/19 08/18/19 History traMADol HCL [Ultram] 50 mg PO TID 08/12/19 08/18/19 History Allergies Allergy/AdvReac Type Severity Reaction Status Date / Time sulfamethoxazole AdvReac Unknown Verified 08/19/19 08:34 [From Bactrim] trimethoprim [From Bactrim] AdvReac Unknown Verified 08/19/19 08:34 Physical Exam Vitals: Vital Signs Temp Pulse Pulse Resp BP BP Pulse Ox 08/18/19 19:14 97.8 F 92 18 159/70 94 L 08/18/19 18:51 97.9 F 89 18 124/90 95 08/18/19 18:00 94 17 136/56 96 08/18/19 17:30 96 17 146/70 96 08/18/19 17:00 93 17 145/72 95 08/18/19 16:30 90 17 131/57 94 L 08/18/19 16:00 95 17 142/77 97 08/18/19 15:30 93 17 166/88 94 L 08/18/19 15:00 95 17 151/68 94 L 08/18/19 14:40 98.3 F 98 18 151/68 98 Intake and Output 08/18/19 08/18/19 08/18/19 06:59 14:59 22:59 Other: Voiding Method Toilet # Voids 1 Weight 62.596 kg 62.596 kg - Constitutional General appearance: Present: average body habitus, cooperative, no acute distress - EENT Eyes: Present: anicteric sclerae, EOMI ENT: Present: hearing grossly normal - Respiratory Details: resp even and unlabored - Cardiovascular Details: skin warm and dry to touch - Integumentary Integumentary: Present: normal - Neurologic Neurologic: Present: CNII-XII intact - Musculoskeletal Musculoskeletal Comment(s): BLE 4/5 Musculoskeletal: Present: generalized weakness, strength equal bilaterally - Psychiatric Results CBC & Chem 7: 08/19/19 05:38 08/19/19 05:38 Labs: Abnormal Lab Results - Last 24 Hours (Table) 08/18/19 08/18/19 Range/Units 15:45 15:45 WBC 11.6 H (3.8-10.6) k/uL Neutrophils # 9.2 H (1.3-7.7) k/uL Sodium 130 L (137-145) mmol/L Carbon Dioxide 21 L (22-30) mmol/L BUN 27 H (7-17) mg/dL Calcium 8.1 L (8.4-10.2) mg/dL AST 74 H (14-36) U/L Alkaline Phosphatase 144 H (38-126) U/L Comments: MRI SPine, CT Scans. Assessment and Plan Plan: MRI T/L spine reports reviewed Assessment and Plan: Compression fracture/ Suspicious lesions to bone - Compression fractures found on CT of the abdomen and pelvis and CT of the chest. Pt had x-ray of the T-spine and March of this year, the fractures are new since then. MRI of the thoracic and lumbar spine, reveals an area at L1-2 on the right second be a target for biopsy. - Status Post intervention by Dr. 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 Hypercalcemia: Resolved, Now Hypocalcemia - Secondary to disease in the bones. - Zometa given in patient on 08/15/19 - Patient instructed on PO Calcium Supp and added to Medication List Hyponatremia - Likely secondary to decrease in PO intake Hypokalemia: - Check Mag, Supp per protocol Remote Hx Breast cancer: - History of, right breast 1988, left breast 1998, surgery and chemotherapy treatment. Ca 15.3 elevated at 99.3, CA 27.29 102.2. Thank you for the consultation
[2019-08-19] MEDS: SODIUM CHLORIDE 0.9% 1,000 ML IV SCH ×2 (15:56→21:07)
[2019-08-19 17:10] LABS: Glucose,Whole Blood 210 mg/dL (75-99)
[2019-08-19] MEDS: INSULN ASP PRT/INSULIN ASPART 100 UNIT/ML 10 ML VIAL SQ SCH (17:36)
[2019-08-19 21:00] LABS: Glucose,Whole Blood 162 mg/dL (75-99)
[2019-08-19] MEDS: ATORVASTATIN 10 MG TAB PO SCH (21:06)
[2019-08-19] MEDS: ALLOPURINOL 300 MG TAB PO SCH (21:06)
[2019-08-20 04:55] LABS: Glucose,Whole Blood 55 mg/dL (75-99)
[2019-08-20 05:26] LABS: Glucose,Whole Blood 105 mg/dL (75-99)
[2019-08-20] MEDS: Acetaminophen-Codeine 300-30mg TAB PO PRN ×2 (05:26→09:24)
[2019-08-20] MEDS: INSULIN ASPART (NovoLOG) 100 UNIT/ML VIAL SQ SCH ×3 (07:23→17:08)
[2019-08-20] MEDS ORDERED: NON FORMULARY DRUG (Vitamin B Complex [Vitamin B Complex] 1 CAP) PO SCH (09:00)
[2019-08-20] MEDS: SENNOSIDES-DOCUSATE SODIUM 1 EACH TAB PO SCH (09:21)
[2019-08-20] MEDS: ESCITALOPRAM 10 MG TAB PO SCH (09:21)
[2019-08-20] MEDS: ASPIRIN 325 MG TAB PO SCH (09:21)
[2019-08-20] MEDS: LISINOPRIL 20 MG TAB PO SCH (09:21)
[2019-08-20] MEDS: amLODIPine 5 MG TAB PO SCH (09:21)
--- NOTE | 2019-08-20 09:35 | P.PN ---
Progress Note - Text Progress Note Date: 08/20/19 Orthopedic spine: History of present illness: Patient is a very pleasant 89-year-old female who is seen and examined bedside for follow-up evaluation following a T11 kyphoplasty with biopsy performed yesterday, 08/19/2019. Medicines documentation from last eating states the patient has had improvement of her thoracic back pain following surgical intervention. Patient states this morning she just woke up and is unsure how much better her pain has improved. She does state she is ready for discharge home today. Biopsy was taken the time of the kyphoplasty. Those results are pending. Patient currently denies any lower extremity weakness or radiculopathy bilaterally. She continues to be seen by medicine. She has been seen by oncology as well. Patient does have a significant medical history which includes breast cancer with treatment of the right breast in 1988 and treatment of the left breast in 1998. Other medical diagnoses include hyperlipidemia, diabetes mellitus, and hypertension. Oncology dictation states patient had further workup for multiple myeloma last week which was negative. Patient is known to have multiple thoracolumbar spinal lesions. Physical exam: Patient is awake, alert, and oriented 3 Vital signs stable Good chest excursion with deep inspiration and expiration Examination of thoracic and lumbar spine reveals skin is intact with no abrasions, lacerations, or bruises; no erythema, purulence or signs of infection Dressing over the surgical site at T11 is clean, dry, and intact without any active drainage or sign of infection Dorsiflexion, plantarflexion, and extensor hallucis longus positive sustained bilaterally Lower extremity strength 5/5 bilaterally No signs or symptoms of DVT; no calf pain Neurovascularly intact Assessment: Status post T11 kyphoplasty with biopsy for pathologic compression fracture Multiple thoracolumbar spinal lesions Thoracolumbar back pain History of breast cancer Diabetes mellitus Hypertension Hyperlipidemia Plan: 1. Patient is encouraged to ambulate to tolerance and work with physical therapy to increase mobility and ambulation 2. Continue pain control medications as prescribed 3. Patient will continue to be seen by medicine and oncology for further evaluation including further assessment for metastatic disease; T11 biopsy is currently pending 4. From an orthopedic spine standpoint, patient is cleared for discharge once cleared by other medical providers. Following discharge, patient should avoid excessive activities regards to her thoracolumbar spine. Avoid heavy lifting. No lifting greater than 10 pounds. Following discharge, we will plan to have the patient follow-up with Dr. Pradip Gaspar at [facility] in 2-3 weeks following discharge.
[2019-08-20 09:43] LABS: HCT 35.2 % (34.0-46.0); HGB 11.2 gm/dL (11.4-16.0); MCH 29.3 pg (25.0-35.0); MCHC 31.9 g/dL (31.0-37.0); MCV 91.9 fL (80.0-100.0); Mean Platelet Volume 6.9; Platelet Count 212 k/uL (150-450); RBC 3.83 m/uL (3.80-5.40); RDW 15.2 % (11.5-15.5); WBC 9.3 k/uL (3.8-10.6)
[2019-08-20 09:58] LABS: African American GFR (CKD) >90 (>60 ml/min/1.73 sqM); Anion Gap 3 mmol/L; Blood Urea Nitrogen 12 mg/dL (7-17); Calcium 6.9 mg/dL (8.4-10.2); Carbon Dioxide 26 mmol/L (22-30); Chloride 106 mmol/L (98-107); Glucose 89 mg/dL (74-99); Non-African American GFR(CKD) 79 (>60 ml/min/1.73 sqM); Potassium 4.6 mmol/L (3.5-5.1); Sodium 135 mmol/L (137-145)
[2019-08-20] MEDS: INSULN ASP PRT/INSULIN ASPART 100 UNIT/ML 10 ML VIAL SQ SCH ×2 (10:28→17:08)
[2019-08-20] MEDS: HYDROmorphone 0.5 MG/0.5 ML SYRINGE IVP PRN (10:30)
--- NOTE | 2019-08-20 11:38 | P.PN ---
Subjective Progress Note Date: 08/20/19 Principal diagnosis: New Bone Lesions patient seen in obs today status post surgery and she is in position this morning and states she cannot move because of pain. T3 was not helping. No BM No nausea. 10/10 pain. I have asked nursing to give 0.5mg dilaudid x1 Objective - Vital Signs Vital signs: Vital Signs Temp 98.3 F 08/20/19 05:00 Pulse 75 08/20/19 08:00 Resp 16 08/20/19 08:00 BP 162/72 08/20/19 05:00 Pulse Ox 90 L 08/20/19 05:00 Intake & Output 08/19/19 08/20/19 08/20/19 18:59 06:59 18:59 Intake Total 1000 Output Total 5 Balance 995 Weight 62.596 kg Intake: IV 1000 Output: Estimated Blood Loss 5 Other: Voiding Method Toilet Toilet Toilet # Voids 1 1 - Exam - Constitutional General appearance: Present: average body habitus, cooperative, no acute distress - EENT Eyes: Present: anicteric sclerae, EOMI ENT: Present: hearing grossly normal - Respiratory Details: resp even and unlabored - Cardiovascular Details: skin warm and dry to touch - Integumentary Integumentary: Present: normal - Neurologic Neurologic: Present: CNII-XII intact - Musculoskeletal Musculoskeletal Comment(s): BLE 4/5 Musculoskeletal: Present: generalized weakness, strength equal bilaterally - Labs CBC & Chem 7: 08/20/19 09:19 08/20/19 09:19 Labs: Abnormal Lab Results - Last 24 Hours (Table) 08/19/19 08/19/19 08/19/19 Range/Units 12:08 17:07 20:58 Hgb (11.4-16.0) gm/dL Sodium (137-145) mmol/L POC Glucose (mg/dL) 100 H 210 H 162 H (75-99) mg/dL Calcium (8.4-10.2) mg/dL 08/20/19 08/20/19 08/20/19 Range/Units 04:53 05:25 09:19 Hgb 11.2 L (11.4-16.0) gm/dL Sodium (137-145) mmol/L POC Glucose (mg/dL) 55 L 105 H (75-99) mg/dL Calcium (8.4-10.2) mg/dL 08/20/19 Range/Units 09:19 Hgb (11.4-16.0) gm/dL Sodium 135 L (137-145) mmol/L POC Glucose (mg/dL) (75-99) mg/dL Calcium 6.9 L (8.4-10.2) mg/dL Assessment and Plan Plan: MRI T/L spine reports reviewed Assessment and Plan: Compression fracture/ Suspicious lesions to bone - Compression fractures found on CT of the abdomen and pelvis and CT of the chest. Pt had x-ray of the T-spine and March of this year, the fractures are new since then. MRI of the thoracic and lumbar spine, reveals an area at L1-2 on the right second be a target for biopsy. - Status Post intervention by Dr. Gaspar with Biopsy - Await Tissue results - Discussed with the patient the negative workup for myeloma, most of the evid ence at this time is pointing towards metastatic breast cancer to bone. Hypercalcemia: Resolved, Now Hypocalcemia - Secondary to disease in the bones. - Zometa given in patient on 08/15/19 - Patient instructed on PO Calcium Supp and added to Medication List Remote Hx Breast cancer: - History of, right breast 1988, left breast 1998, surgery and chemotherapy treatment. Ca 15.3 elevated at 99.3, CA 27.29 102.2. Post operative Pain: Not controlled on PO med. - ok for one time IV Dilaudid Discharge per Primary team, although recommend improved pain control post operative. - Plan for follow-up in 2 weeks in office to review path and treatment plan - Dr. Campos radiation oncology Referral as outpatient
--- NOTE | 2019-08-20 11:43 | P.PN ---
Subjective Progress Note Date: 08/20/19 Principal diagnosis: back pain Patient was seen and examined. No acute events overnight. Underwent kyphoplasty of T11, vertebral body biopsy of T11 yesterday. Patient reports e xcruciating lower back pain, 10/10 in severity. She received a dose of Dilaudid and appears somewhat drowsy. She denies any chest pain, shortness of breath or palpitations. No nausea or vomiting. No fever or chills. Patient refusing palliative care and home health services at this time. Objective - Vital Signs Vital signs: Vital Signs Temp 98.3 F 08/20/19 05:00 Pulse 75 08/20/19 08:00 Resp 16 08/20/19 08:00 BP 162/72 08/20/19 05:00 Pulse Ox 90 L 08/20/19 05:00 Intake & Output 08/19/19 08/20/19 08/20/19 18:59 06:59 18:59 Intake Total 1000 Output Total 5 Balance 995 Weight 62.596 kg Intake: IV 1000 Output: Estimated Blood Loss 5 Other: Voiding Method Toilet Toilet Toilet # Voids 1 1 - Exam General: [non toxic], [appears to be in acute distress but drowsy], [appears at stated age] Derm: [warm], [dry] Head: [atraumatic], [normocephalic], [symmetric] Eyes: [EOMI], [no lid lag], [anicteric sclera] Mouth: [no lip lesion], [mucus membranes moist] Cardiovascular: [S1S2 reg], [no murmur], [positive DP pulse bilateral], Lungs: [CTA bilateral], [no rhonchi, no rales] , [no accessory muscle use] Abdominal: [soft], [ nontender to palpation], [no guarding], [no appreciable organomegaly] Ext: [no gross muscle atrophy], [no edema], [no contractures], [tenderness with palpation midline spine at the T11 level with dressing applied clean dry and intact], [SLR negative bilaterally] Neuro: [no focal neuro deficits] Psych: [Alert], [oriented], [appropriate affect] - Labs CBC & Chem 7: 08/20/19 09:19 08/20/19 09:19 Labs: Abnormal Lab Results - Last 24 Hours (Table) 08/19/19 08/19/19 08/19/19 Range/Units 12:08 17:07 20:58 Hgb (11.4-16.0) gm/dL Sodium (137-145) mmol/L POC Glucose (mg/dL) 100 H 210 H 162 H (75-99) mg/dL Calcium (8.4-10.2) mg/dL 08/20/19 08/20/19 08/20/19 Range/Units 04:53 05:25 09:19 Hgb 11.2 L (11.4-16.0) gm/dL Sodium (137-145) mmol/L POC Glucose (mg/dL) 55 L 105 H (75-99) mg/dL Calcium (8.4-10.2) mg/dL 08/20/19 Range/Units 09:19 Hgb (11.4-16.0) gm/dL Sodium 135 L (137-145) mmol/L POC Glucose (mg/dL) (75-99) mg/dL Calcium 6.9 L (8.4-10.2) mg/dL Assessment and Plan Assessment: Acute back pain likely related to metastatic disease of the lumbar spine Hyponatremia Elevated AST History of breast cancer History of multiple myeloma Hypertension Diabetes mellitus Dyslipidemia Resolved: Prerenal azotemia, Hypokalemia Patient's back pain is likely related to previous findings of metastatic disease to the spine. She does have a history of multiple myeloma and breast cancer. She was scheduled for outpatient biopsy of T11 lesion. PT and OT will be consulted to work with the patient during this admission. She is POD 1 T11 kyphoplasty and biopsy. s/p 2 doses of cefazolin. She will be placed on Fall precautions. Her pain will be controlled with T3, oxycodone or Dilaudid as needed (discussed with nursing about judicious use of Dilaudid). Her hyponatremia is likely related to dehydration. This has improved significantly since admission. Plans to DC IVF and encourage hydration by mouth. Her elevated AST is of unknown significance which will be monitored at this time and CMP is ordered for tomorrow morning. Oncology will be consulted as they were following the patient during her previous admission. Biopsy results are pending at this time. Her BP is 162/72. We will restart amlodipine and lisinopril for her history of hypertension. Insulin sliding scale will be started for her history of diabetes along with regular Accu-Cheks and hypoglycemic precautions. Her home dose of insulin has been restarted. Lipitor will be restarted for her dyslipidemia. [Patient admitted for intractable back pain. She is POD 1 T-11 kyphoplasty and biopsy. PT consulted to work with the patient. Patient refusing home health services and Palliative care at this time as discussed with Case Management. Oncology consult pending. She is pending clinical improvement. DC home when able to work with physical therapy and with adequate pain control.]
[2019-08-20 11:56] LABS: Glucose,Whole Blood 93 mg/dL (75-99)
[2019-08-20 16:44] LABS: Glucose,Whole Blood 226 mg/dL (75-99)
[2019-08-20] MEDS: CALCIUM CARBONATE 500 MG CHEWABLE PO SCH ×2 (17:08→19:33)
[2019-08-20] MEDS: ALLOPURINOL 300 MG TAB PO SCH (19:33)
[2019-08-20] MEDS: ATORVASTATIN 10 MG TAB PO SCH (19:33)
[2019-08-20 19:40] LABS: Glucose,Whole Blood 118 mg/dL (75-99)
[2019-08-20] MEDS: oxyCODONE-APAP 5-325MG 1 EACH TAB PO PRN (23:51)
[2019-08-21 01:47] LABS: Glucose,Whole Blood 123 mg/dL (75-99)
[2019-08-21 06:11] LABS: Glucose,Whole Blood 132 mg/dL (75-99)
[2019-08-21] MEDS: ASPIRIN 325 MG TAB PO SCH (07:44)
[2019-08-21] MEDS: oxyCODONE-APAP 5-325MG 1 EACH TAB PO PRN (07:45)
[2019-08-21] MEDS: amLODIPine 5 MG TAB PO SCH (07:45)
[2019-08-21] MEDS: SENNOSIDES-DOCUSATE SODIUM 1 EACH TAB PO SCH (07:45)
[2019-08-21] MEDS: LISINOPRIL 20 MG TAB PO SCH (07:45)
[2019-08-21] MEDS: CALCIUM CARBONATE 500 MG CHEWABLE PO SCH ×3 (07:46→20:06)
[2019-08-21] MEDS: ESCITALOPRAM 10 MG TAB PO SCH (07:46)
[2019-08-21] MEDS: INSULIN ASPART (NovoLOG) 100 UNIT/ML VIAL SQ SCH ×2 (07:49→14:51)
[2019-08-21] MEDS: INSULN ASP PRT/INSULIN ASPART 100 UNIT/ML 10 ML VIAL SQ SCH (07:56)
[2019-08-21] MEDS: IBUPROFEN 400 MG TAB PO SCH ×3 (09:40→23:57)
[2019-08-21] MEDS: PANTOPRAZOLE 40 MG TABLET PO SCH (09:41)
[2019-08-21] MEDS: LORATADINE 10 MG TAB PO SCH (09:41)
[2019-08-21] MEDS: predniSONE 20 MG TAB PO SCH (09:41)
[2019-08-21 11:40] LABS: Glucose,Whole Blood 46 mg/dL (75-99)
[2019-08-21 12:01] LABS: Glucose,Whole Blood 84 mg/dL (75-99)
--- NOTE | 2019-08-21 13:53 | P.PN ---
Subjective Progress Note Date: 08/21/19 (delayed charting seen at 0915) Principal diagnosis: intractable back pain Patient is an 89-year-old female with a history of breast cancer status post bilateral mastectomy approximately 10 years ago, recent concern for multiple myeloma which was ruled out the oncology office, diabetes mellitus type 2 insulin requiring, hypertension, and dyslipidemia who initially presented to the ER with complaints of diffuse bone and joint pain. Of note she had been admitted here on 08/13/2019 secondary to back pain at that point in time she had an MRI completed of her thoracic and lumbar spine which showed multiple points of metastatic disease as well as a T11 fracture. She did undergo outpatient bone biopsy with pathology currently pending. She was admitted for pain contr ol. Orthopedic spine surgery was consulted and she underwent kyphoplasty on 08/19/19 with good results. Initially the plan was for discharge home on 08/19 however she continued to have diffuse pain when is unable to ambulate on her own and continued to require IV pain medications. She had been seen by oncology who recommended outpatient follow-up for possible radiation to the spine. Patient seen and examined at bedside. She continues to complain of pain all over. She states she has not many state be able to make decisions at this point in time. She was unable to tell me whether or not Percocet was effective. She then stated she feels it was partially effective but that she could not function at home with this level of pain. She has taken Motrin in the past and tolerated this well. However it was not effective for completely controlling her pain. We also had a long discussion about the possibility of adding palliative care services on discharge to help with the pain management as she continues to think about other options. Objective - Vital Signs Vital signs: Vital Signs Temp 98.7 F 08/21/19 08:00 Pulse 88 08/21/19 08:00 Resp 18 08/21/19 08:00 BP 205/93 08/21/19 08:00 Pulse Ox 93 L 08/21/19 03:47 Intake & Output 08/20/19 08/21/19 08/21/19 18:59 06:59 18:59 Intake Total 240 240 Balance 240 240 Intake: Oral 240 240 Other: Voiding Method Toilet Toilet # Voids 1 - Exam General: Ill-appearing, moderate distress, appears younger than stated age Derm: warm, dry Head: atraumatic, normocephalic, symmetric Eyes: EOMI, no lid lag, anicteric sclera Mouth: no lip lesion, mucus membranes moist Cardiovascular: S1S2 reg, no murmur, positive posterior tibial pulse bilateral, Lungs: Decreased breath sounds bilateral, no rhonchi, no rales , no accessory muscle use Abdominal: soft, nontender to palpation, no guarding, no appreciable organomegaly Ext: no gross muscle atrophy, no edema, no contractures Neuro: CN II-XI grossly intact, no focal neuro deficits Psych: Alert, oriented, appropriate affect - Labs CBC & Chem 7: 08/20/19 09:19 08/20/19 09:19 Labs: Abnormal Lab Results - Last 24 Hours (Table) 08/20/19 08/20/19 08/21/19 Range/Units 16:43 19:39 01:44 POC Glucose (mg/dL) 226 H 118 H 123 H (75-99) mg/dL 08/21/19 08/21/19 Range/Units 06:10 11:39 POC Glucose (mg/dL) 132 H 46 L (75-99) mg/dL Assessment and Plan Assessment: Intractable back pain secondary to metastatic lesions, T 11 pathologic compression fracture -Increase Percocet to 7.5/325, add prednisone and Motrin and to help with inflammation with back pain -Spine and oncology recs appreciated DM2 insulin requiring - patient with hypoglycemia today - Decrease 70/30 dosing - follow BS - A1C 5.4 Transaminitis - mild and appears chronic - outpatient follow-up as indicated Hypertension, urgency -Uncontrolled secondary to pain -Continue with Norvasc, lisinopril -Follow blood pressures Dyslipidemia -Statin DVT prophylaxis: Lovenox Discussed with: Patient, nursing, case management Anticipated discharge: in AM Anticipated discharge place: home with home health/ palliative if patient in agreement A total of 35 minutes was spent on the care of this complex patient more than 50% of the time was spent in counseling and care coordination.
[2019-08-21] MEDS: oxyCODONE-APAP 7.5-325MG 1 EACH TAB PO PRN ×2 (15:09→20:05)
[2019-08-21] MEDS: ENOXAPARIN 40 MG/0.4 ML SYRINGE SQ SCH (15:13)
[2019-08-21 16:59] LABS: Glucose,Whole Blood 219 mg/dL (75-99)
--- NOTE | 2019-08-21 17:00 | P.PN ---
Progress Note - Text Progress Note Date: 08/21/19 Orthopedic spine: History of present illness: Patient is a very pleasant 89-year-old female who is seen and examined bedside for follow-up evaluation following a T11 kyphoplasty with biopsy performed 08/19/2019. Patient states she has been having increased back pain since yesterday. She does not feel her symptoms could be controlled at home alone. She is willing to discuss home health services. She would prefer to be discharged home versus rehabilitation facility. She states her family is currently planned to come to the hospital today to discuss further treatment options with case management. Biopsy was taken the time of the kyphoplasty. Those results are pending. Patient currently denies any lower extremity weakness or radiculopathy bilaterally. She continues to be seen by medicine. She has been seen by oncology as well. Patient does have a significant medical history which includes breast cancer with treatment of the right breast in 1988 and treatment of the left breast in 1998. Other medical diagnoses include h yperlipidemia, diabetes mellitus, and hypertension. Oncology dictation states patient had further workup for multiple myeloma last week which was negative. Patient is known to have multiple thoracolumbar spinal lesions. Physical exam: Patient is awake, alert, and oriented 3 Vital signs stable Good chest excursion with deep inspiration and expiration Examination of thoracic and lumbar spine reveals skin is intact with no abrasions, lacerations, or bruises; no erythema, purulence or signs of infection Dressing over the surgical site at T11 is clean, dry, and intact without any active drainage or sign of infection Dorsiflexion, plantarflexion, and extensor hallucis longus positive sustained bilaterally Lower extremity strength 5/5 bilaterally No signs or symptoms of DVT; no calf pain Neurovascularly intact Assessment: Status post T11 kyphoplasty with biopsy for pathologic compression fracture Multiple thoracolumbar spinal lesions Thoracolumbar back pain History of breast cancer Diabetes mellitus Hypertension Hyperlipidemia Plan: 1. Patient is encouraged to ambulate to tolerance and work with physical therapy to increase mobility and ambulation 2. Continue pain control medications as prescribed 3. Patient will continue to be seen by medicine and oncology for further evaluation including further assessment for metastatic disease; T11 biopsy is currently pending 4. From an orthopedic spine standpoint, patient is cleared for discharge once cleared by other medical providers. Following discharge, patient should avoid excessive activities regards to her thoracolumbar spine. Avoid heavy lifting. No lifting greater than 10 pounds. Following discharge, we will plan to have the patient follow-up with Dr. Pradip Gaspar at [facility] in 2-3 weeks following discharge.
[2019-08-21] MEDS: SODIUM CHLORIDE 0.9% 1,000 ML IV SCH (17:23)
[2019-08-21] MEDS ORDERED: INSULN ASP PRT/INSULIN ASPART 100 UNIT/ML 10 ML VIAL SQ SCH (17:30)
--- NOTE | 2019-08-21 19:29 | P.PN ---
Subjective Progress Note Date: 08/21/19 Principal diagnosis: New Bone Lesions Patient is still in large amount of pain, although looking over her MAR she is not really utilizing the medications. She has had per the MAR only one percocet today. We will also need to add a bowel regimen to prevent narcotic induced constipation. At this time controlling her pain, increasing performance status with PT/OT and awaiting pathology is goals. ?VTE prophylaxis with known metastatic cancer and decreased movement. Objective - Vital Signs Vital signs: Vital Signs Temp 98.7 F 08/21/19 08:00 Pulse 85 08/21/19 17:27 Resp 16 08/21/19 16:00 BP 152/65 08/21/19 17:27 Pulse Ox 93 L 08/21/19 17:27 Intake & Output 08/21/19 08/21/19 08/22/19 06:59 18:59 06:59 Intake Total 240 Balance 240 Intake: Oral 240 Other: Voiding Method Toilet - Exam - Constitutional General appearance: Present: average body habitus, cooperative, mild acute distress - EENT Eyes: Present: anicteric sclerae, EOMI ENT: Present: hearing grossly normal - Respiratory Details: resp even and unlabored - Cardiovascular Details: skin warm and dry to touch - Integumentary Integumentary: Present: normal - Neurologic Neurologic: Present: CNII-XII intact - Musculoskeletal Musculoskeletal Comment(s): BLE 4/5 Musculoskeletal: Present: generalized weakness, strength equal bilaterally - Labs CBC & Chem 7: 08/20/19 09:19 08/20/19 09:19 Labs: Abnormal Lab Results - Last 24 Hours (Table) 08/20/19 08/21/19 08/21/19 Range/Units 19:39 01:44 06:10 POC Glucose (mg/dL) 118 H 123 H 132 H (75-99) mg/dL 08/21/19 08/21/19 Range/Units 11:39 16:57 POC Glucose (mg/dL) 46 L 219 H (75-99) mg/dL Assessment and Plan Plan: MRI T/L spine reports reviewed Assessment and Plan: Compression fracture/ Suspicious lesions to bone - Compression fractures found on CT of the abdomen and pelvis and CT of the chest. Pt had x-ray of the T-spine and March of this year, the fractures are new since then. MRI of the thoracic and lumbar spine, reveals an area at L1-2 on the right second be a target for biopsy. - Status Post intervention by Dr. 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 Hypercalcemia: Resolved, Now Hypocalcemia - Secondary to disease in the bones. - Zometa given in patient on 08/15/19 - Patient instructed on PO Calcium Supp and added to Medication List Remote Hx Breast cancer: - History of, right breast 1988, left breast 1998, surgery and chemotherapy treatment. Ca 15.3 elevated at 99.3, CA 27.29 102.2. Post operative Pain: Not controlled on PO med. Nursing to please continue to assess pain frequently - If patient is not asking for PRN maybe a low dose long acting Morphine would be helpful. - Discussed with primary team Discharge per Primary team, although recommend improved pain control post operative. - Pain management prior to discharge - Bowel Regimen and VTE prophylaxis. - Plan for follow-up in 2 weeks in office to review path and treatment plan - Dr. Campos radiation oncology Referral as outpatient
[2019-08-21 19:55] LABS: Glucose,Whole Blood 306 mg/dL (75-99)
[2019-08-21] MEDS: ATORVASTATIN 10 MG TAB PO SCH (20:06)
[2019-08-21] MEDS: ALLOPURINOL 300 MG TAB PO SCH (20:29)
[2019-08-21] MEDS ORDERED: SENNOSIDES-DOCUSATE SODIUM 1 EACH TAB PO SCH (21:00)
[2019-08-21 23:51] VITALS: TEMP 98.1
[2019-08-22] MEDS: HYDROmorphone 0.5 MG/0.5 ML SYRINGE IVP PRN (00:03)
[2019-08-22 02:09] LABS: Glucose,Whole Blood 121 mg/dL (75-99)
[2019-08-22] MEDS: IBUPROFEN 400 MG TAB PO SCH ×2 (06:05→13:23)
[2019-08-22] MEDS: oxyCODONE-APAP 7.5-325MG 1 EACH TAB PO PRN (06:06)
[2019-08-22 06:14] LABS: Basophils % (A) 0 %; Eosinophils # (A) 0.1 k/uL (0-0.7); Eosinophils % (A) 1 %; HCT 34.3 % (34.0-46.0); HGB 11.4 gm/dL (11.4-16.0); Hypochromasia Slight; Lymphocytes # (A) 1.7 k/uL (1.0-4.8); Lymphocytes % (A) 20 %; MCH 30.5 pg (25.0-35.0); MCHC 33.2 g/dL (31.0-37.0); MCV 91.9 fL (80.0-100.0); Mean Platelet Volume 7.1; Monocytes # (A) 0.3 k/uL (0-1.0); Monocytes % (A) 4 %; Neutrophils # (A) 6.4 k/uL (1.3-7.7); Neutrophils % (A) 75 %; Platelet Count 241 k/uL (150-450); RBC 3.73 m/uL (3.80-5.40); RDW 14.7 % (11.5-15.5); WBC 8.5 k/uL (3.8-10.6)
[2019-08-22 06:22] LABS: Glucose,Whole Blood 112 mg/dL (75-99)
[2019-08-22 06:28] LABS: Albumin 2.9 g/dL (3.5-5.0); Calcium 7.3 mg/dL (8.4-10.2); Magnesium 1.9 mg/dL (1.6-2.3); Potassium 4.6 mmol/L (3.5-5.1); Total Bilirubin 0.3 mg/dL (0.2-1.3); Total Protein 5.8 g/dL (6.3-8.2)
[2019-08-22] MEDS ORDERED: INSULN ASP PRT/INSULIN ASPART 100 UNIT/ML 10 ML VIAL SQ SCH (07:30)
[2019-08-22] MEDS ORDERED: oxyCODONE-APAP 7.5-325MG 1 EACH TAB PO PRN (08:15)
[2019-08-22] MEDS: LORATADINE 10 MG TAB PO SCH (08:24)
[2019-08-22] MEDS: amLODIPine 5 MG TAB PO SCH (08:25)
[2019-08-22] MEDS: predniSONE 20 MG TAB PO SCH (08:25)
[2019-08-22] MEDS: ASPIRIN 325 MG TAB PO SCH (08:25)
[2019-08-22] MEDS: LISINOPRIL 20 MG TAB PO SCH (08:25)
[2019-08-22] MEDS: PANTOPRAZOLE 40 MG TABLET PO SCH (08:25)
[2019-08-22] MEDS: ESCITALOPRAM 10 MG TAB PO SCH (08:25)
[2019-08-22] MEDS: ENOXAPARIN 40 MG/0.4 ML SYRINGE SQ SCH (08:25)
[2019-08-22] MEDS: CALCIUM CARBONATE 500 MG CHEWABLE PO SCH (08:25)
[2019-08-22 08:43] VITALS: RESP 18
[2019-08-22 12:04] LABS: Glucose,Whole Blood 85 mg/dL (75-99)
[2019-08-22 12:17] LABS: Glucose,Whole Blood 75 mg/dL (75-99)
[2019-08-22 12:59] VITALS: BP 164/73; PULSE 70
--- NOTE | 2019-08-22 15:12 | P.DS ---
Providers Date of admission: 08/19/19 13:27 Expected date of discharge: 08/22/19 Attending physician: Maryellen Reddy MD Consults: 08/18/19 18:19 Consult Physician Stat Consulting Provider: Maame Gaspar Consult Reason/Comments: Scheduled for lumbar biopsy tomorrow, back pain, polyarthralgia Do you want consulting provider notified?: Yes 08/18/19 18:33 Consult Physician Stat Consulting Provider: Adrian Adams Consult Reason/Comments: metastatic bone disease Do you want consulting provider notified?: Yes Primary care physician: Zachariah Quintanilla Hospital Course: Discharge Diagnosis: Intractable back pain secondary to metastatic lesions, T 11 pathologic compression fracture due to metastatic breast cancer DM2 insulin requiring Transaminitis Hypertension, urgency Dyslipidemia Hyponatremia Dehydration with prerenal azotemia No history of multiple myeloma and this has been ruled out. Hypokalemia Hospital Course: Patient is an 89-year-old female with a history of breast cancer status post bilateral mastectomy approximately 10 years ago, recent concern for multiple myeloma which was ruled out the oncology office, diabetes mellitus type 2 insulin requiring, hypertension, and dyslipidemia who initially presented to the ER with complaints of diffuse bone and joint pain. Of note she had been admitted here on 08/13/2019 secondary to back pain at that point in time she had an MRI completed of her thoracic and lumbar spine which showed multiple points of metastatic disease as well as a T11 fracture. She did undergo outpatient bone biopsy. She was admitted for pain control. Orthopedic spine surgery was consulted and she underwent kyphoplasty on 08/19/19 with good results. Initially the plan was for discharge home on 08/19 however she continued to have diffuse pain when is unable to ambulate on her own and continued to require IV pain medications. She had been seen by oncology who recommended outpatient follow-up for possible radiation to the spine, her inpatient biopsy was consistent with breast cancer. Her pain was better controlled and she was determined stable for discharge. She will have home health and palliative care on discharge. She will follow with Dr. Quintanilla, Dr. Gaspar, Dr. Adams, and Dr. Campos Patient seen and examined at bedside. Pain is better controlled, Up and walking, no nausea, no vomiting, no constipation. Vital signs reviewed and stable. General: non toxic, no distress, appears at stated age Derm: warm, dry Head: atraumatic, normocephalic, symmetric Eyes: EOMI, no lid lag, anicteric sclera Mouth: no lip lesion, mucus membranes moist Cardiovascular: S1S2 reg, no murmur, positive posterior tibial pulse bilateral, Lungs: CTA bilateral, no rhonchi, no rales , no accessory muscle use Abdominal: soft, nontender to palpation, no guarding, no appreciable organomegaly Ext: no gross muscle atrophy, no edema, no contractures Neuro: CN II-XI grossly intact, no focal neuro deficits Psych: Alert, oriented, appropriate affect A total of 35 minutes of time were spent preparing this complex discharge summary . Patient Condition at Discharge: Stable Plan - Discharge Summary Discharge Rx Participant: No New Discharge Prescriptions: New Calcium Carbonate/Vitamin D3 [Calcium 500-Vit D3 200 Tablet] 2 each PO HS #60 tablet Ibuprofen [Motrin] 400 mg PO Q6HR #30 tab Insuln Asp Prt/Insulin Aspart [NovoLOG MIX 70-30 VIAL] 25 unit SQ AC-SUPPER vial Insuln Asp Prt/Insulin Aspart [NovoLOG MIX 70-30 VIAL] 25 unit SQ AC-BRKFST vial oxyCODONE-APAP 7.5-325MG [Percocet 7.5-325 mg] 1 each PO Q4HR PRN #38 tab PRN Reason: Pain predniSONE 0 mg PO DIRECTED #30 tab Pantoprazole [Protonix] 40 mg PO AC-BRKFST #30 tablet.dr Continue Simvastatin [Zocor] 20 mg PO HS amLODIPine [Norvasc] 5 mg PO DAILY Lisinopril [Zestril] 20 mg PO DAILY Allopurinol [Zyloprim] 300 mg PO HS Vitamin B Complex 1 cap PO DAILY Escitalopram Oxalate [Lexapro] 10 mg PO DAILY Discontinued Insulin Lispro Protamin/Lispro [humaLOG Mix 75-25 Kwikpen] 48 unit SQ AC- BRKFST Insulin Lispro Protamin/Lispro [humaLOG Mix 75-25 Kwikpen] 35 unit SQ AC- SUPPER Ibuprofen [Motrin] 400 mg PO Q8HR PRN 7 Days #21 tab PRN Reason: Muscle Pain Aspirin EC [Ecotrin] 325 mg PO DAILY traMADol HCL [Ultram] 50 mg PO TID Discharge Medication List Allopurinol [Zyloprim] 300 mg PO HS 07/13/18 [History] Lisinopril [Zestril] 20 mg PO DAILY 07/13/18 [History] Simvastatin [Zocor] 20 mg PO HS 07/13/18 [History] amLODIPine [Norvasc] 5 mg PO DAILY 07/13/18 [History] Vitamin B Complex 1 cap PO DAILY 03/19/19 [History] Escitalopram Oxalate [Lexapro] 10 mg PO DAILY 08/12/19 [History] Calcium Carbonate/Vitamin D3 [Calcium 500-Vit D3 200 Tablet] 2 each PO HS #60 tablet 08/20/19 [Rx] Ibuprofen [Motrin] 400 mg PO Q6HR #30 tab 08/22/19 [Rx] Insuln Asp Prt/Insulin Aspart [NovoLOG MIX 70-30 VIAL] 25 unit SQ AC-BRKFST vial 08/22/19 [Rx] Insuln Asp Prt/Insulin Aspart [NovoLOG MIX 70-30 VIAL] 25 unit SQ AC-SUPPER vial 08/22/19 [Rx] Pantoprazole [Protonix] 40 mg PO AC-BRKFST #30 tablet. 08/22/19 [Rx] oxyCODONE-APAP 7.5-325MG [Percocet 7.5-325 mg] 1 each PO Q4HR PRN #38 tab 08/22/19 [Rx] predniSONE 0 mg PO DIRECTED #30 tab 08/22/19 [Rx] Follow up Appointment(s)/Referral(s): Zachariah Quintanilla MD [Primary Care Provider] - 08/27/19 2:00 pm Maame Gaspar DO [Doctor of Osteopathic Medicine] - 2 Weeks [facility], [NON-STAFF] - 1-2 Days (Contact number for Palliative Care also. ) Adrian Adams MD [STAFF PHYSICIAN] - 2 Weeks (Our office will call to schedule appointment. Medical Oncology) Activity/Diet/Wound Care/Special Instructions: Diet: Carb consistent Special Instructions: 1. Patient may ambulate to tolerance performed regular activities of daily living to tolerance 2. Avoid excessive activities with her thoracolumbar spine 3. Avoid heavy lifting; no lifting greater than 10 pounds 4. Check blood sugar twice daily, once you go home you may need to increase your insulin again depending on your appetite. Discharge Disposition: HOME WITH HOME HEALTH SERVICES
--- NOTE | 2019-08-22 17:38 | P.PN ---
Subjective Progress Note Date: 08/22/19 Principal diagnosis: New Bone Lesions patient sitting on side of bed, pain is better controlled. Per Primary team path is consistent with breast primary. Will further see molecular markers and if ER positive will initiate Aromatase inhibitor to start now. Otherwise plan for yoel very of procedure and palliative radiation after discharge. Will follow-up in office in 2 weeks. Objective - Vital Signs Vital signs: Vital Signs Temp 98.1 F 08/21/19 23:50 Pulse 70 08/22/19 12:58 Resp 18 08/22/19 12:58 BP 164/73 08/22/19 12:58 Pulse Ox 94 L 08/22/19 08:42 Intake & Output 08/21/19 08/22/19 08/22/19 18:59 06:59 18:59 Intake Total 480 Balance 480 Weight 62.596 kg Intake: Oral 480 Other: Voiding Method Toilet Toilet # Voids 1 - Exam - Constitutional General appearance: Present: average body habitus, cooperative, mild acute distress - EENT Eyes: Present: anicteric sclerae, EOMI ENT: Present: hearing grossly normal - Respiratory Details: resp even and unlabored - Cardiovascular Details: skin warm and dry to touch - Integumentary Integumentary: Present: normal - Neurologic Neurologic: Present: CNII-XII intact - Musculoskeletal Musculoskeletal Comment(s): BLE 4/5 Musculoskeletal: Present: generalized weakness, strength equal bilaterally - Labs CBC & Chem 7: 08/22/19 05:48 08/22/19 05:48 Labs: Abnormal Lab Results - Last 24 Hours (Table) 08/21/19 08/22/19 08/22/19 Range/Units 19:54 02:08 05:48 RBC 3.73 L (3.80-5.40) m/uL Sodium (137-145) mmol/L Glucose (74-99) mg/dL POC Glucose (mg/dL) 306 H 121 H (75-99) mg/dL Calcium (8.4-10.2) mg/dL Alkaline Phosphatase (38-126) U/L Total Protein (6.3-8.2) g/dL Albumin (3.5-5.0) g/dL 08/22/19 08/22/19 Range/Units 05:48 06:21 RBC (3.80-5.40) m/uL Sodium 136 L (137-145) mmol/L Glucose 109 H (74-99) mg/dL POC Glucose (mg/dL) 112 H (75-99) mg/dL Calcium 7.3 L (8.4-10.2) mg/dL Alkaline Phosphatase 128 H (38-126) U/L Total Protein 5.8 L (6.3-8.2) g/dL Albumin 2.9 L (3.5-5.0) g/dL Assessment and Plan Plan: MRI T/L spine reports reviewed Assessment and Plan: Compression fracture/ Suspicious lesions to bone - Compression fractures found on CT of the abdomen and pelvis and CT of the chest. Pt had x-ray of the T-spine and March of this year, the fractures are new since then. MRI of the thoracic and lumbar spine, reveals an area at L1-2 on the right second be a target for biopsy. - Status Post intervention by Dr. 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 - path consistent with breast primary Hypercalcemia: Resolved, Now Hypocalcemia - Secondary to disease in the bones. - Zometa given in patient on 08/15/19 - Patient instructed on PO Calcium Supp and added to Medication List Remote Hx Breast cancer: - History of, right breast 1988, left breast 1998, surgery and chemotherapy treatment. Ca 15.3 elevated at 99.3, CA 27.29 102.2. Post operative Pain: Not controlled on PO med. Nursing to please continue to assess pain frequently - If patient is not asking for PRN maybe a low dose long acting Morphine would be helpful. - Discussed with primary team Discharge per Primary team, although recommend improved pain control post opera tive. - Pain managementat discharge also discussed plan for narcotic induced constipation miralax and senna s. Patient and friend understand - Will review molecular markers if Estrogen or progesterone positive kem initiate aromatase inhibitor now - She understand the picture is incurable and treatment goals are palliative - Plan for follow-up in 2 weeks in office to review path and treatment plan - Dr. Campos radiation oncology Referral as outpatient
== END 2019-08-22 16:26 | disposition home health service (06) | DRG 940 ==
LOC: EC 14:37 → 1SOBS 18:19 → OBSVTOIN 08-19 13:27
PROVIDERS: ADMIT Family Medicine; ATTEND Family Medicine
PROC: 0PS43ZZ Reposition Thoracic Vertebra, Percutaneous Approach (ICD-10-PCS; principal; 2019-08-19 09:45)
PROC: 0PU43JZ Supplement Thoracic Vertebra with Synthetic Substitute, Percutaneous Approach (ICD-10-PCS; principal; 2019-08-19 09:45)
PROC: 0PB40ZX Excision of Thoracic Vertebra, Open Approach, Diagnostic (ICD-10-PCS; principal; 2019-08-19 09:45)
DX: G89.3 Neoplasm related pain (acute) (chronic) (principal); C79.51 Secondary malignant neoplasm of bone; E87.1 Hypo-osmolality and hyponatremia; M84.58XA Pathological fracture in neoplastic disease, other specified site, initial encounter for fracture; J98.11 Atelectasis; E83.51 Hypocalcemia; D72.829 Elevated white blood cell count, unspecified; E11.9 Type 2 diabetes mellitus without complications; E78.5 Hyperlipidemia, unspecified; E86.0 Dehydration; E87.6 Hypokalemia; F41.9 Anxiety disorder, unspecified; I10 Essential (primary) hypertension; M81.0 Age-related osteoporosis without current pathological fracture; G89.29 Other chronic pain; M19.90 Unspecified osteoarthritis, unspecified site; R74.0 Nonspecific elevation of levels of transaminase and lactic acid dehydrogenase [LDH]; R79.89 Other specified abnormal findings of blood chemistry; Z11.59 Encounter for screening for other viral diseases; G89.18 Other acute postprocedural pain; I16.0 Hypertensive urgency; Z66 Do not resuscitate; Z79.4 Long term (current) use of insulin; Z79.82 Long term (current) use of aspirin; Z79.899 Other long term (current) drug therapy; Z85.3 Personal history of malignant neoplasm of breast; Z85.828 Personal history of other malignant neoplasm of skin; Z90.13 Acquired absence of bilateral breasts and nipples; Z90.710 Acquired absence of both cervix and uterus; Z88.1 Allergy status to other antibiotic agents; Z88.2 Allergy status to sulfonamides; Z92.21 Personal history of antineoplastic chemotherapy; Z90.49 Acquired absence of other specified parts of digestive tract
CPT/HCPCS: 36415; 72100; 80048; 80053; 83735; 85025; 85027; 88307; 88311; 88341; 88342; 99285